=== PATIENT | female | born 1960 | race Caucasian/White ===

== ENCOUNTER → 2017-02-04 | Outpatient (CLI) | payer OTHER ==
[~2017-02-04] MED LIST: CITA10TA4 PO; CYCL5TAB PO; PRLSR20 PO; SIMV20TA2 PO; TRAM-10 PO; TRIATAB3 PO
--- NOTE | 2017-02-05 12:30 | MAMMOGRAPHY REPORT ---
BILATERAL DIGITAL SCREENING MAMMOGRAM TOMOSYNTHESIS WITH CAD: 02/04/2017 CLINICAL HISTORY: Routine screening. Patient has no complaints. TECHNIQUE: Breast tomosynthesis in addition to standard 2D mammography was performed. Current study was also evaluated with a Computer Aided Detection (CAD) system. COMPARISON: Comparison is made to exams dated: 01/31/2016 mammogram, 01/08/2015 mammogram, 01/04/2014 ma mmogram, 12/29/2012 mammogram, 12/23/2011 mammogram, and 12/05/2010 mammogram - [facility] nter. BREAST COMPOSITION: The tissue of both breasts is almost entirely fatty. FINDINGS: There is an irregular 10 mm asymmetry seen within the left far superior breast on the MLO v iew only, thought to project laterally based on the tomosynthesis localizer bar, for which spot compr ession tomosynthesis views and possible breast ultrasound are recommended for further evaluation. Th is may be within the skin and may represent a sebaceous cyst, given the history of other sebaceous cy sts seen within the left axillary region on the prior 2008 ultrasound exam. The remainder of both breasts are stable compared to prior exams, without suspicious masses, calcific ations, or areas of architectural distortion noted. IMPRESSION: ACR BI-RADS CATEGORY 0: INCOMPLETE EVALUATION: NEED ADDITIONAL IMAGING EVALUATION Left superior breast asymmetry, for which additional imaging evaluation is recommended. The patient will be called to schedule an appointment. Approximately 10% of breast cancers are not detected with mammography. A negative mammographic report should not delay biopsy if a clinically suggestive mass is present. Vianca Vizcaino M.D. /:02/04/2017 16:28:50 Rv Repairer: Tatum ARITA(R)(M)(BD), [facility] letter sent: Addl Imaging 0 BI-RADS Code: ACR BI-RADS Category 0: Incomplete Evaluation: Need Additional Imaging Evaluation
== END | disposition home or self-care (01) ==
LOC: C.MAMM 07:36
PROVIDERS: ATTEND Family Medicine
DX: Z12.31 Encounter for screening mammogram for malignant neoplasm of breast (principal); R92.8 Other abnormal and inconclusive findings on diagnostic imaging of breast

== ENCOUNTER → 2017-02-18 | Outpatient (CLI) | payer OTHER ==
--- NOTE | 2017-02-18 15:23 | MAMMOGRAPHY REPORT ---
UNILATERAL LEFT DIGITAL DIAGNOSTIC MAMMOGRAM TOMOSYNTHESIS AND TARGETED LEFT ULTRASOUND: 02/18/2017 CLINICAL HISTORY: Callback from screening mammogram for left breast asymmetry. On questioning, the p atjax has a history of multiple sebaceous cysts involving bilateral axillary regions. TECHNIQUE: Breast tomosynthesis in addition to standard 2D mammography was performed. Spot compress ion left MLO 2-D and tomosynthesis images were obtained. COMPARISON: Comparison is made to exams dated: 02/04/2017 mammogram, 01/31/2016 mammogram, 01/08/2015 ma mmogram, 01/04/2014 mammogram, 12/29/2012 mammogram, and 12/23/2011 mammogram - [facility] nter. BREAST COMPOSITION: The tissue of the left breast is almost entirely fatty. FINDINGS: The previously seen asymmetry within the left far superior breast axillary region persists on the additional spot compression MLO view but is superficial and is likely associated with the ski n. Targeted ultrasound was performed of the left axillary region at the site of the mammographic asymmet ry. There are numerous round/oval anechoic and hypoechoic intradermal masses seen within the left ax illa, consistent with sebaceous cysts. A predominantly subdermal hypoechoic irregular 10 x 6 x 5 mm mass is also seen within the left axilla, which demonstrates surrounding increased vascularity. This corresponds with the mammographic asymmetry and is probably benign and likely represents a sebaceous cyst. The surrounding increased vascularity suggests that it may be inflamed, although clinical exa m shows no erythema of the skin and the patient reports no pain or other symptoms. IMPRESSION: ACR-BI-RADS CATEGORY 3: PROBABLY BENIGN, TARGETED ULTRASOUND ACR-BI-RADS CATEGORY 3: PRO BABLY BENIGN Subdermal irregular hypoechoic 10 mm mass in the left axilla on ultrasound, which corresponds with th e mammographic asymmetry. This is probably benign and likely represents a sebaceous cyst, which may be inflamed given the surrounding increased vascularity. Multiple other benign sebaceous cysts were seen within the left axillary region on ultrasound. Recommend follow-up ultrasound and possible diag nostic tomosynthesis mammograms of the left axilla in 6 months to reevaluate. The patient has been verbally notified of the results. Approximately 10% of breast cancers are not detected with mammography. A negative mammographic report should not delay biopsy if a clinically suggestive mass is present. Vianca Vizcaino M.D. ah/:02/18/2017 10:00:31 Metal Model Builder: Molly ARITA(Raúl)(M), [facility] letter sent: Follow Up Recommended 3 BI-RADS Code: ACR-BI-RADS Category 3: Probably Benign Ultrasound BI-RADS: ACR-BI-RADS Category 3: Pr obably Benign
== END | disposition home or self-care (01) ==
LOC: C.MAMM 08:29
PROVIDERS: ATTEND Family Medicine
DX: R92.2 Inconclusive mammogram (principal)

== ENCOUNTER → 2017-04-23 | Outpatient (CLI) | payer OTHER | END | disposition home or self-care (01) | LOC: C.LABSPEC 13:18 | PROVIDERS: ATTEND Physician Assistant | DX: N89.8 Other specified noninflammatory disorders of vagina (principal) ==

== ENCOUNTER → 2017-08-23 | Outpatient (CLI) | payer OTHER ==
--- NOTE | 2017-08-23 14:48 | MAMMOGRAPHY REPORT ---
UNILATERAL LEFT DIGITAL DIAGNOSTIC MAMMOGRAM TOMOSYNTHESIS AND TARGETED LEFT ULTRASOUND: 08/23/2017 CLINICAL HISTORY: Follow-up of asymmetries in the far superior left breast/axillary region on the MLO view thought to correspond with intradermal mass is seen on targeted ultrasound. TECHNIQUE: Left MLO 2-D and tomosynthesis images were obtained. COMPARISON: Comparison is made to exams dated: 02/18/2017 mammogram, 02/18/2017 ultrasound, 02/04/2017 mammogram, 01/31/2016 mammogram, 01/08/2015 mammogram, and 01/04/2014 mammogram - [facility] enter. BREAST COMPOSITION: The tissue of the left breast is almost entirely fatty. FINDINGS: The left MLO views demonstrate persistent nodular asymmetries in the far superior left dion st/axilla on the MLO view. No conspicuous spiculated mass or definite architectural distortion is id entified. There are stable benign-appearing lymph nodes projecting over the pectoralis muscle on the MLO view. No suspicious breast mass, architectural distortion or cluster of suspicious microcalcifi cations is seen in the breast. Repeat targeted ultrasound was performed in the left axilla. Numerous intradermal hypoechoic lesions are identified, parallel in orientation without significant increased vascularity. At least 6 intra dermal lesions are currently identified, most compatible with epidermal inclusion cysts and/or Hidrad initis. These findings are benign. There is no targeted sonographic evidence of malignancy or suspi cious lymphadenopathy. IMPRESSION: ACR BI-RADS CATEGORY 2: BENIGN, TARGETED ULTRASOUND ACR BI-RADS CATEGORY 2: BENIGN There is no mammographic or targeted sonographic evidence of malignancy in the left breast. The asym metries in the far superior breast/axillary region on the MLO view corresponding to intradermal lesio ns on ultrasound. Return to annual mammogram screening schedule is recommended, due in January 2018. T he patient has been verbally notified of the results. Approximately 10% of breast cancers are not detected with mammography. A negative mammographic report should not delay biopsy if a clinically suggestive mass is present. Heide Fuchs M.D. ay/:08/23/2017 08:46:20 Corporate Risk Analyst: Nirali CHAN)(Ese), [facility] letter sent: Normal 1/2 BI-RADS Code: ACR BI-RADS Category 2: Benign Ultrasound BI-RADS: ACR BI-RADS Category 2: Benign
== END | disposition home or self-care (01) ==
LOC: C.MAMM 08:00
PROVIDERS: ATTEND Family Medicine
DX: N64.89 Other specified disorders of breast (principal)

== ENCOUNTER 2018-10-12 09:16 | Inpatient (IN) ==
[2018-10-12] MEDS ORDERED: SODIUM CHLORIDE 0.9% 1000ML 1,000 ML IV SCH (09:45)
[2018-10-12] MEDS ORDERED: ONDANSETRON INJ 2 MG/ML 2 ML VIAL IV STA (09:45)
[2018-10-12 10:44] LABS: Hematocrit (blood only) 16.1 % (37-47); Hemoglobin 5.5 g/dL (12.0-16.0); Mean Corpuscular Volume 82.6 fL (80-100); Red Blood Count 1.95 M/uL (4.2-5.4); White Blood Count 2.08 K/uL (4.8-10.8)
[2018-10-12 10:46] LABS: Mean Corpuscular Hgb Conc 34.2 g/dL (32-36)
[2018-10-12 10:47] LABS: Mean Platelet Volume 9.1 fL (7.4-10.4); Platelet Count 7 K/uL (130-400)
[2018-10-12 10:48] LABS: Eosinophils # (auto) 0.01 K/uL (0-0.5); Eosinophils % (auto) 0.5 %; Immature Granulocytes # (auto) 0.01 K/uL (0.00-0.02); Immature Granulocytes % (auto) 0.5 %; Lymphocytes # (auto) 0.37 K/uL (1.2-3.4); Lymphocytes % (auto) 17.8 %; Monocytes # (auto) 0.21 K/uL (0.11-0.59); Monocytes % (auto) 10.1 %; Neutrophils # (auto) 1.48 K/uL (1.4-6.5); Neutrophils % (auto) 71.1 %; RBC Morphology Unremarkable
[2018-10-12] MEDS ORDERED: SODIUM CHLORIDE 0.9% 250 ML IV PRN ×4 (10:48→14:53)
[2018-10-12 10:51] LABS: Albumin Level 3.1 gm/dl (3.4-5.0); Aspartate Aminotransferase 18 U/L (15-37); BUN Creatinine Ratio 21.6 (10-20); Blood Urea Nitrogen 15 mg/dl (7-18); Calcium 8.5 mg/dl (8.5-10.1); Carbon Dioxide 28 mmol/L (21-32); Chloride 100 mmol/L (98-107); Est GFR (African American) 111.2; Glucose 88 mg/dl (70-99); Magnesium 1.5 mg/dl (1.8-2.4); Potassium 2.4 mmol/L (3.5-5.1); Sodium 137 mmol/L (136-145)
[2018-10-12 10:52] LABS: Alanine Aminotransferase 13 U/L (12-78); Albumin Globulin Ratio 0.9 (0.9-2); Alkaline Phosphatase 115 U/L (45-117); Globulin 3.5 gm/dl (2.5-4.0); Phosphorus 2.5 mg/dl (2.5-4.9); Total Protein 6.6 gm/dl (6.4-8.2)
--- NOTE | 2018-10-12 11:05 | XRay Report ---
CHEST AND ABDOMEN 2 VIEWS HISTORY: h/o esophagectomy and pullthrough COMPARISON: Chest and abdominal series 05/12/2018. FINDINGS: No pneumothorax. Trace right pleural effusion. The heart is normal in size. Right jugular P ort-A-Cath terminates at the SVC. No focal lung consolidations. Right paramediastinal suture material is noted. No pneumoperitoneum. No pneumatosis. No renal or ureteral calculi. A few pelvic phlebolith s are noted. Moderate osteoarthritis within the left hip. No dilated loops of bowel to suggest an obs truction. IMPRESSION: 1. Trace right pleural effusion and postoperative changes within the right hemithorax. 2. No evidence for bowel obstruction. Electronically signed by: Tyrone Lang M.D. 10/12/2018 11:04 AM
[2018-10-12] MEDS ORDERED: MAGNESIUM SULFATE / D5W 1 GM/100 ML BAG IV ONE ×2 (11:38→15:00)
[2018-10-12] MEDS: POTASSIUM CHLORIDE / WTR 10 MEQ/100 ML PLCT IV SCH ×4 (11:42→18:48)
[2018-10-12] MEDS ORDERED: PANTOPRAZOLE BOLUS/DRIP 1 EA IV STA (12:09)
[2018-10-12] MEDS ORDERED: PANTOprazole 80 MG in DEXTROSE 5% 100 ML IV ONE (12:09)
--- NOTE | 2018-10-12 12:13 | CT Scan Report ---
CT head/brain wo con CLINICAL HISTORY: 58 years-old Female presenting with thrombocytopenia. TECHNIQUE: Multidetector CT imaging of the head was performed without the use of intravenous contrast . IV contrast: None. One or more dose lowering techniques were used consistent with the principles of ALARA (as low as reasonably achievable), including automatic exposure control, mA or kV adjustment t o individual patient size, and/or use of iterative reconstruction. COMPARISON: None. CT DOSE (mGy.cm): The estimated cumulative dose is 537.48 mGy.cm. FINDINGS: Plywood And Veneer Repairer topogram: Unremarkable. Ventricles and sulci normal in size. No hemorrhage. Brain parenchyma normal in appearance with preser bryant larios-white differentiation. No acute territorial infarct. No mass effect or midline shift. No ext ra-axial fluid collection. Paranasal sinuses and mastoid air cells clear. Calvarium intact. IMPRESSION: 1. No acute intracranial abnormality. Electronically signed by: Masood Dai M.D. 10/12/2018 12:12 PM
[2018-10-12] MEDS: PANTOprazole 40 MG in DEXTROSE 5% 100 ML IV SCH ×4 (12:47→22:28)
--- NOTE | 2018-10-12 13:06 | Emergency Department Note ---
Entered by Ale Thorne acting as a scribe for Jae Chand MD History of Present Illness General Chief complaint: Vomiting Stated complaint: VOMITING Time Seen by Provider: 10/12/18 09:30 Source: patient History of Present Illness Provider complaint: vomiting Onset (ago): week(s) (over the last couple of weeks) Location: abdomen Pain Consistency: + intermittent Maximum Pain Intensity: 2 Quality: + other (vomiting) Associated symptoms: no chest pain, no fever/chills and no shortness of breath The patient is a 58 year old white female w/ PMHx of esophageal and lung cancer and esophageal surgery who presents to the ED w/ CC of intermittent vomiting over the last couple of weeks. She states that she has been able to get fluids down and states that she was able to eat oatmeal yesterday. The patient states that she had chemotherapy on September 28. The patient denies having fevers, chills, chest pain, and shortness of breath. She states that she has been unable to take her medications secondary to vomiting. The patient denies alcohol or tobacco use. Home Medications Home Medications Medication Instructions Recorded Confirmed Type polyethylene glycol 3350 17 1 gm PO DAILY PRN gm 06/28/18 10/12/18 History gram/dose oral powder Allergies Allergy/AdvReac Type Severity Reaction Status Date / Time Penicillins Allergy Intermediate Rash Verified 10/12/18 09:43 Sulfa (Sulfonamide AdvReac Severe Rash Verified 10/12/18 09:43 Antibiotics) Past Med/Surg History Medical History Esophageal cancer Adenocarcinoma of esophagus (02/22/18) "History of reflux esophagitis Development of weight loss and dysphagia Status post upper GI endoscopy and biopsy February 22, 2018 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 Radiation therapy completed May 12, 2018. She received 5040 cGy. Surgical History History of esophageal surgery (Acute) Family History Other No significant family history Social History Preferred Language: Palestinian Communication Ability: Effective Computer Numerical Control Programmer Required: No Beliefs That Will Affect Care: None marital status: Current Living Situation: Spouse Other Information That Helps Us Care for You: No Feels Safe at Home: Yes Safety Concerns: Feels Safe At This Time Smoking Status: Former smoker Hx Alcohol Use: No Hx Substance Use: No Review of Systems See HPI for pertinent positives & negatives. and A total of 10 systems reviewed and were otherwise negative Physical Exam Vital Signs Vital Signs - 24 hr 10/12/18 09:18 10/12/18 10:00 10/12/18 10:44 Temperature 36.6 C Temperature Source Oral Sepsis Recent Fever Within 48 Hours No Sepsis New/Unexplained Change in Mental Status No Sepsis Action Taken by Nursing No Action Required Pulse Rate 117 H Pulse Rate [Finger] 73 Respiratory Rate 20 18 Respiratory Effort / Characteristics Respiratory Depth Respiratory Pattern Blood Pressure 96/66 L Blood Pressure [Right Arm] 118/67 Blood Pressure Mean 76 Blood Pressure Mean [Right Arm] 84 Pulse Oximetry 100 99 99 Oxygen Delivery Method Room Air 10/12/18 11:28 10/12/18 11:48 Temperature Temperature Source Sepsis Recent Fever Within 48 Hours Sepsis New/Unexplained Change in Mental Status Sepsis Action Taken by Nursing Pulse Rate Pulse Rate [Finger] 79 Respiratory Rate 18 Respiratory Effort / Characteristics Spontaneous Non-Labored Respiratory Depth Normal Normal Respiratory Pattern Regular Blood Pressure Blood Pressure [Right Arm] 102/66 Blood Pressure Mean Blood Pressure Mean [Right Arm] 78 Pulse Oximetry 98 Oxygen Delivery Method Room Air Room Air GENERAL: Well appearing, well nourished, NAD, non-toxic. Face mask in place. EYE EXAM: Normal conjunctiva. PERRL, no anisocoria and EOM's grossly intact w/o pain OROPHARYNX: Dry mucus membranes. NECK: Supple, no nuchal rigidity, no adenopathy, non-tender. No signs of meningismus. LUNGS: Clear to auscultation bilaterally. Normal chest wall mechanics. HEART: Normal sinus rhythm, no MRG. ABDOMEN: Abdomen soft, no masses, no rebound or guarding. Mild upper abdominal discomfort. External portion of the DJ is absent but you can see the beginning of the rest of the DJ virtually at the beginning of the incision site. BACK: No CVA TTP. SKIN: No rashes and no bruising. UPPER EXTREMITIES: Upper extremities are grossly normal. LOWER EXTREMITIES: No pitting edema. No calf pain. NEURO EXAM: AOx3, GCS 15, no gross deficit, follows commands. Moves all 4 extremities on command w/o issue RECTAL: Several non-thrombosed non-bleeding hemorrhoids. No bright red blood. No black tarry stool. Hemoccult negative. Course 0936: Past medical records reviewed. The patient was evaluated in room C5, and a complete history and physical examination were performed. 1107: I consented the patient for blood. 1139: I discussed the patient's case with Chary Angela who will evaluate the patient for further management. 1200: I discussed the patient's case with Dr. Rodriguez who stated that there was concern that the patient was having some bloody vomit. They spoke with their oncologist who recommended platelets. 1245: I performed a rectal exam on the patient. Consultations Consultation #1: Chary Angela Time: 11:39 Consultation #2: Dr. Rodriguez Time: 12:00 Administered Medications Sodium Chloride (Nss 250ml) 250 mls @ 15 mls/hr IV .[id number] PRN PRN Reason: For Transfusion Stop: 11/11/18 10:47 Last Admin: 10/12/18 11:21 Dose: 15 mls/hr Documented by: [id number] Potassium Chloride (K Ricco / Wtr) 10 meq in 100 mls @ 100 mls/hr IV Q1H [facility] Stop: 10/12/18 13:29 Last Admin: 10/12/18 12:45 Dose: 100 mls/hr Documented by: [id number] Infusion: 10/12/18 12:42 Dose: 100 mls/hr Documented by: [id number] Admin: 10/12/18 11:42 Dose: 100 mls/hr Documented by: [id number] Pantoprazole Sodium 40 mg/ (Dextrose) 100 mls @ 20 mls/hr IV Q5H PHANI Stop: 11/11/18 12:14 Last Admin: 10/12/18 12:47 Dose: 20 mls/hr Documented by: [id number] Discontinued Medications Sodium Chloride (Nss 1000ml) 1,000 mls @ 999 mls/hr IV .Q1H1M PHANI Stop: 10/12/18 10:45 Last Infusion: 10/12/18 11:20 Dose: 0 mls/hr Documented by: [id number] Admin: 10/12/18 10:16 Dose: 999 mls/hr Documented by: [id number] Magnesium Sulfate/Dextrose (Magnesium Sulfate / D5w) 1 gm in 100 mls @ 100 mls/hr IV ONE ONE Stop: 10/12/18 12:37 Last Infusion: 10/12/18 12:45 Dose: 0 mls/hr Documented by: [id number] Admin: 10/12/18 11:45 Dose: 100 mls/hr Documented by: [id number] Pantoprazole Sodium (Protonix Bolus/Drip) 0 mls @ 1 mls/hr IV ONE STA Stop: 10/12/18 12:10 Last Admin: 10/12/18 12:56 Dose: Not Given Documented by: [id number] Pantoprazole Sodium 80 mg/ (Dextrose) 120 mls @ 400 mls/hr IV NOW ONE Stop: 10/12/18 12:26 Last Admin: 10/12/18 12:47 Dose: 400 mls/hr Documented by: [id number] Ondansetron HCl (Zofran) 8 mg IV NOW STA Stop: 10/12/18 09:46 Last Admin: 10/12/18 10:16 Dose: 8 mg Documented by: [id number] Medical Decision Making Medical Records Attestation: I reviewed the patient's medical records. Home Medications Current Medication List: was personally reviewed by me Laboratory Data Attestation: I reviewed the patient's lab results. Result diagrams: 10/12/18 10:05 10/12/18 10:05 Lab Results 10/12/18 10/12/18 10/12/18 Range/Units 10:05 10:05 11:29 WBC 2.08 L (4.8-10.8) K/uL RBC 1.95 L (4.2-5.4) M/uL Hgb 5.5 L* (12.0-16.0) g/dL Hct 16.1 L* (37-47) % MCV 82.6 (80-100) fL MCH 28.2 (25-34) pg MCHC 34.2 (32-36) g/dL RDW Std Deviation 44.0 (36.4-46.3) fL RDW Coeff of [place] 15.0 H (11.5-14.5) % Plt Count 7 L* (130-400) K/uL MPV 9.1 (7.4-10.4) fL Immature Gran % (Auto) 0.5 % Neut % (Auto) 71.1 % Lymph % (Auto) 17.8 % Shoshone % (Auto) 10.1 % Eos % (Auto) 0.5 % Baso % (Auto) 0.0 % Immature Gran # (Auto) 0.01 (0.00-0.02) K/uL Neut # (Auto) 1.48 (1.4-6.5) K/uL Lymph # (Auto) 0.37 L (1.2-3.4) K/uL Shoshone # (Auto) 0.21 (0.11-0.59) K/uL Eos # (Auto) 0.01 (0-0.5) K/uL Baso # (Auto) 0.00 (0-0.2) K/uL RBC Morphology Unremarkable Sodium 137 (136-145) mmol/L Potassium 2.4 L* (3.5-5.1) mmol/L Chloride 100 (98-107) mmol/L Carbon Dioxide 28 (21-32) mmol/L Anion Gap 8.0 (3-11) BUN 15 (7-18) mg/dl Creatinine 0.69 (0.6-1.2) mg/dl Est Cr Clr Drug Dosing Not Reportable Est GFR ( Amer) 111.2 Est GFR (Non-Af Amer) 96.0 BUN/Creatinine Ratio 21.6 H (10-20) Glucose 88 (70-99) mg/dl Calcium 8.5 (8.5-10.1) mg/dl Phosphorus 2.5 (2.5-4.9) mg/dl Magnesium 1.5 L (1.8-2.4) mg/dl Total Bilirubin 1.0 (0.2-1) mg/dl AST 18 (15-37) U/L ALT 13 (12-78) U/L Alkaline Phosphatase 115 (45-117) U/L Total Protein 6.6 (6.4-8.2) gm/dl Albumin 3.1 L (3.4-5.0) gm/dl Globulin 3.5 (2.5-4.0) gm/dl Albumin/Globulin Ratio 0.9 (0.9-2) Lipase 112 (73-393) U/L Blood Type O Negative Antibody Screen NEGATIVE Crossmatch See Detail Imaging Data Radiologist's Impression: Radiology results as stated below per my review and the radiologist's interpretation: CHEST AND ABDOMEN 2 VIEWS HISTORY: h/o esophagectomy and pullthrough COMPARISON: Chest and abdominal series 05/12/2018. FINDINGS: No pneumothorax. Trace right pleural effusion. The heart is normal in size. Right jugular Port-A-Cath terminates at the SVC. No focal lung consolidations. Right paramediastinal suture material is noted. No p neumoperitoneum. No pneumatosis. No renal or ureteral calculi. A few pelvic phleboliths are noted. Moderate osteoarthritis within the left hip. No dilated loops of bowel to suggest an obstruction. IMPRESSION: 1. Trace right pleural effusion and postoperative changes within the right hemithorax. 2. No evidence for bowel obstruction. Electronically signed by: Tyrone Lang M.D. 10/12/2018 11:[address] head/brain wo con CLINICAL HISTORY: 58 years-old Female presenting with thrombocytopenia. TECHNIQUE: Multidetector CT imaging of the head was performed without the use of intravenous contrast. IV contrast: None. One or more dose lowering techniques were used consistent with the principles of ALARA (as low as reasonably achievable), including automatic exposure control, mA or kV adjustment to individual patient size, and/or use of iterative reconstruction. COMPARISON: None. CT DOSE (mGy.cm): The estimated cumulative dose is 537.48 mGy.cm. FINDINGS: Gang Saw Operator topogram: Unremarkable. Ventricles and sulci normal in size. No hemorrhage. Brain parenchyma normal in appearance with preserved larios-white differentiation. No acute territorial infarct. No mass effect or midline shift. No extra-axial fluid collection. Paranasal sinuses and mastoid air cells clear. Calvarium intact. IMPRESSION: 1. No acute intracranial abnormality. Electronically signed by: Masood Dai M.D. 10/12/2018 12:12 PM ECG Data Attestation: I personally reviewed and interpreted this ECG as follows: Indication: vomiting Rate (beats per minute): 76 Rhythm: normal sinus Findings: + other (normal intervals, normal axis, some slight depression in V3 and V4) Comparison ECG Date: from (07/21/18) Change: no significant change (depressions appear old) Blood Pressure Blood Pressure Findings: Normal blood pressure MDM Narrative The patient is a 58 year old white female w/ PMHx of esophageal and lung cancer and esophageal surgery who presents to the ED w/ CC of intermittent vomiting over the last couple of weeks. Differential diagnosis: Etiologies such as gastroenteritis, food borne illness, infections, appendici tis, diverticulitis, inflammatory bowel disease, obstruction, GI bleed, biliary pathology, cardiac process, intracranial process, as well as others were entertained. Patient was seen and evaluated the bedside. The patient is a prior history of lung CA as well as esophageal CA status post esophagectomy and pull through. The patient has complained of persistent nausea with associated vomiting over the last 3 weeks. The patient did receive chemotherapy September 28. Patient sees Dr. Ambrocio with [facility]. Patient did a blood work completed along with EKG troponin chest x-ray and abdomen x-ray. Patient was given medications and fluids for symptom improvement. Patient's plain films unremarkable. EKG shows some slight depression which appears fairly unchanged compared to prior. The patient has a low hemoglobin and associated thrombus cytopenia. CT the brain was ordered. I did speak with the on-call hospitalist who agreed to further evaluate treat the patient. Rectal exam is negative for blood. Hemoccult negative. The patient was consented for 2 units of blood as well as [address] the brain is negative. Impression & Plan Anemia, Nausea & vomiting, Thrombocytopenia, Hypokalemia, Hypomagnesemia Critical Care Time I have personally spent greater than 80 minutes of critical care time in the direct management of this patient. This includes bedside care, interpretation of diagnostic studies, and testing, discussion with consultants, patient, and family members, and other required patient management activities. This 80 minutes is in excess of all separately billable procedures. Critical Care Time: Yes Total Critical Care Time: 80 Discharge Plan Visit Data Chief Complaint: Vomiting Stated Complaint: VOMITING ED Provider: Jae Chand Discharge Problem: Anemia, Nausea & vomiting, Thrombocytopenia, Hypokalemia, Hypomagnesemia Patient Disposition: Being Evaluated by Hospitalist Forms Stand Alone Forms: Kite Prescriptions Prescriptions: No Action polyethylene glycol 3350 [Miralax] 17 gram/dose powder 1 gm PO DAILY PRN (Reason: constipation) RF: 0 Referrals Referrals: Josiah Sampson [Primary Care Provider] - Discharge Problem: Anemia Qualifiers: Anemia type: unspecified type Qualified Code(s): D64.9 - Anemia, unspecified Nausea & vomiting Qualifiers: Vomiting type: unspecified Vomiting Intractability: non-intractable Qualified Code(s): R11.2 - Nausea with vomiting, unspecified The scribe's documentation has been prepared under my direction and personally reviewed by me in its entirety. I confirm that the note above accurately reflects all work, treatment, procedures, and medical decision making performed by me.
--- NOTE | 2018-10-12 13:24 | History & Physical Report ---
Date of Service October 12, 2018 Assessment & Plan (1) Anemia: Pancytopenia: Likely multifactorial: Due to Chemotherapy, Anemia of chronic disease, To R/O GI bleed Chest/Abd X ray:Trace right pleural effusion and postoperative changes within the right hemithorax. No evidence for bowel obstruction. Hb:5.5 Platelets:7 Transfuse 2 units PRBCs and 1 unit platelets Monitor CBC Coffee ground/Black emesis: R/O GI bleed Check FOBT/GOBT Transfuse PRBCs as needed Started on protonix ggt NPO for now GI consulted IV fluids Hypokalemia Hypomagnesemia: Likely due to GI loses Monitor and replace electolytes as needed Diarrhea: Stool studies to R/O C.diff IV fluids Prolonged QTC: Avoid QTC prolonging meds as able Repeat EKG in Am lower esophageal adenocarcinoma S/P Surery, chemo and radiation therapy Completed chemotherapy Follows with Dr.Nilesh Ambrocio Oncology consulted H/O HTN H/O HLP H/O Gout Currently not on any medications monitor DVT Px: SCDs Code Status Full Code Disposition: Expect to discharge home when stable History of Present Illness Chief Complaint: Nausea and vomiting Primary Care Provider: Josiah Sampson Patient is a 58-year-old female with past medical history of lower esophageal adenocarcinoma S/P Surgery, chemo and radiation therapy and other problems presents with history of nausea and vomiting since 2 weeks duration. Patient's last chemotherapy was 3 weeks ago. She follows with Dr. Lazaro Ambrocio as outpatient. She states having intermittent nausea vomiting since last chemother apy. She noticed having black colored emesis. Also reports some intermittent diarrhea which has been ongoing since her surgery. She states having mild generalized abdominal pain intermittently, crampy in nature, non-radiating, 2/10 intensity, with no aggravating and relieving factors. Reports dizziness since last 2 days with positional change. She noticed having epistaxis yesterday which was self limiting. She denies any history of bright red blood in stool, melena. Denies any history of chest pain, SOB, cough, fever, chills, fall, head trauma, headache, dysuria, hematuria, recent change in medications. Allergies Allergy/AdvReac Type Severity Reaction Status Date / Time Penicillins Allergy Intermediate Rash Verified 10/12/18 09:43 Sulfa (Sulfonamide AdvReac Severe Rash Verified 10/12/18 09:43 Antibiotics) Home Medications Home Medications Medication Instructions Recorded Confirmed Type polyethylene glycol 3350 17 1 gm PO DAILY PRN gm 06/28/18 10/12/18 History gram/dose oral powder Past Med/Surg History Medical History Esophageal cancer Adenocarcinoma of esophagus (02/22/18) "History of reflux esophagitis Development of weight loss and dysphagia Status post upper GI endoscopy and biopsy February 22, 2018 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 Radiation therapy completed May 12, 2018. She received 5040 cGy. Surgical History History of esophageal surgery (Acute) H/O left knee surgery Family History Father Esophageal cancer Other No significant family history Social History Preferred Language: Finnish Communication Ability: Effective Supervisor Finishing Department Required: No Beliefs That Will Affect Care: None marital status: Current Living Situation: Spouse Other Information That Helps Us Care for You: No Feels Safe at Home: Yes Safety Concerns: Feels Safe At This Time Smoking Status: Former smoker Hx Alcohol Use: No Hx Substance Use: No Review of Systems All systems reviewed & are unremarkable except as noted in HPI & below Physical Exam Vital Signs (Past 24 Hours): Last Vital Signs Temp 36.6 C 10/12/18 09:18 Pulse 79 10/12/18 11:48 Resp 18 10/12/18 11:48 BP 102/66 10/12/18 11:48 Pulse Ox 98 10/12/18 11:48 Physical Exam: Physical Exam: Vitals signs as noted above General Appearance:Moderately built and nourished, no apparent distress Head: normocephalic, Atraumatic Eyes: normal inspection, EOMI Neck: supple, Trachea midline Chest:Chemo port on left side of chest Respiratory/Chest: Normal breath sounds, CTA Cardiovascular: S1, S2, No murmur Abdomen/GI:Soft, Non tender, Bowel sounds present, Surgical scar on right side of abd/flank Extremities/Musculoskelatal:normal inspection, no edema Neurologic/Psych:AAOX3, grossly no focal neurological deficits Skin: normal color, warm Results & Data Laboratory Results Short CBC 10/12/18 Range/Units 10:05 WBC 2.08 L (4.8-10.8) K/uL Hgb 5.5 L* (12.0-16.0) g/dL Hct 16.1 L* (37-47) % Plt Count 7 L* (130-400) K/uL BMP 10/12/18 10:05 Sodium 137 Potassium 2.4 L* Chloride 100 Carbon Dioxide 28 BUN 15 Creatinine 0.69 Glucose 88 Calcium 8.5 Liver Function 10/12/18 Range/Units 10:05 Total Bilirubin 1.0 (0.2-1) mg/dl AST 18 (15-37) U/L ALT 13 (12-78) U/L Alkaline Phosphatase 115 (45-117) U/L Albumin 3.1 L (3.4-5.0) gm/dl Diagnostic Findings CT head: No acute intracranial abnormality. Chest/Abdomen X ray: 1. Trace right pleural effusion and postoperative changes within the right hemithorax. 2. No evidence for bowel obstruction. ECG Additional Comments: EKG: NSR, Nonspecific ST-T wave changes, QTC:461 (1) Anemia Anemia type: unspecified type Qualified Code(s): D64.9 - Anemia, unspecified
[2018-10-12] MEDS ORDERED: ACETAMINOPHEN 325 MG TAB PO PRN (14:53)
[2018-10-12] MEDS ORDERED: MoRPHine SULFATE 4 MG/ML 1 ML CARP\\VIAL IV PRN (14:53)
--- NOTE | 2018-10-12 16:55 | Gastrointestinal Consultation ---
Date of Consultation October 12, 2018 Assessment & Plan (1) Anemia: Most likely, her nausea/vomiting is a chemotherapeutic effect. Her anemia is also, likely an effect of the chemotherapy. Her one episode of a small amt of black emesis may represent gastritis and less likely ulcer disease (unlikely as nausea/vomiting began after last round of chemo) or radiation esophagitis (unlikely as most recent radiation Jul 2018). Endoscopy is contraindicated when platelet count is <50,000. Recommend antiemetics, blood and fluids recucsitation. Suggest a regular consistency diet. If nausea/vomiting persist after thrombocytopenia is resolved then would be happy to provide EGD at that time. Would also go forward with EGD (after further platelet infusions) if there is another drop in her Hb/Hct. Present on Admission?: Yes (2) Nausea & vomiting: Present on Admission?: Yes (3) Hematemesis: Present on Admission?: Yes Supervising Physician Co-Signing Physician Notes I have performed a history and physical examination of this patient and reviewed the electronic medical record. Specifically, on physical examination there is mild epigastric tenderness. I have discussed the case with DENIS Ragsdale. The above note reflects my findings, conclusions, and recommendations. Alexandre Romero MD History of Present Illness Reason for Consultation: coffee ground emesis Requesting Physician: Dr. Trejo Attending Physician: Eleuterio Hdz MD History of Present Illness Ms Jackelyn Bergeron is a 58 yr old female with a hx of gastroesophageal malignancy S/P surgery chemoradiation, most recent chemotherapy 3 weeks ago. Most recent radiation last May. Since her that last round on of chemo, she has had nausea, vomiting, unable to hold down very much solid food but typically able to tolerate liquids. She vomits more times than she can count, typically bile and "foam , " but this morning vomited a small amt of "black slime." No bright red emesis. No melena or hematochezia. BMs are brown, loose, most recently passing a BM last night. She presented to the ED yesterday for coffee grounds emesis. On arrival, she was pancytopenic: WBC 2. Hb on arrival was 5.5, down from 10.4 in July; today, Hb 7.3 after 2 units of RBC. Platelets were 7 yesterday, and today are 12. BUN 15, Cr 0.69. CXR with trace pleural effusion and no bowel obstruction. Allergies Allergy/AdvReac Type Severity Reaction Status Date / Time Penicillins Allergy Intermediate Rash Verified 10/12/18 09:43 Sulfa (Sulfonamide AdvReac Severe Rash Verified 10/12/18 09:43 Antibiotics) Home Medications Home Medications Medication Instructions Recorded Confirmed Type polyethylene glycol 3350 17 1 gm PO DAILY PRN gm 06/28/18 10/12/18 History gram/dose oral powder Patient History Medical History Esophageal cancer Adenocarcinoma of esophagus (02/22/18) "History of reflux esophagitis Development of weight loss and dysphagia Status post upper GI endoscopy and biopsy February 22, 2018 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 Radiation therapy completed May 12, 2018. She received 5040 cGy. Surgical History History of esophageal surgery (Acute) H/O left knee surgery Family History Father Esophageal cancer Other No significant family history Social History Preferred Language: Yakut Communication Ability: Effective Beliefs That Will Affect Care: None marital status: Current Living Situation: Spouse Feels Safe at Home: Yes Smoking Status: Former smoker Tobacco Type: cigarettes Second Hand Exposure: No Hx Alcohol Use: No Hx Substance Use: No Physical Exam Vital Signs (Past 24 Hours): Last Vital Signs Temp 36.7 C 10/12/18 16:35 Pulse 82 10/12/18 16:35 Resp 18 10/12/18 16:35 BP 95/63 L 10/12/18 16:35 Pulse Ox 100 10/12/18 16:35 (1) Anemia Anemia type: unspecified type Qualified Code(s): D64.9 - Anemia, unspecified (2) Nausea & vomiting Vomiting Intractability: non-intractable Vomiting type: unspecified Qualified Code(s): R11.2 - Nausea with vomiting, unspecified
[2018-10-12 16:58] LABS: Platelet Count 20 K/uL (130-400)
[2018-10-12 17:06] LABS: Hematocrit (blood only) 14.7 % (37-47); Hemoglobin 4.8 g/dL (12.0-16.0); Mean Corpuscular Hgb Conc 32.7 g/dL (32-36); Mean Corpuscular Volume 82.6 fL (80-100); Mean Platelet Volume 9.9 fL (7.4-10.4); RDW Coefficient of Variation 15.1 % (11.5-14.5); RDW Standard Deviation 43.3 fL (36.4-46.3); Red Blood Count 1.78 M/uL (4.2-5.4); White Blood Count 3.13 K/uL (4.8-10.8)
[2018-10-12 17:29] LABS: BUN Creatinine Ratio 17.8 (10-20); Calcium 8.2 mg/dl (8.5-10.1); Creatinine Clr Calc Pharmacy 94.4 ml/min; Est GFR (Non-African American) 92.3; Magnesium 1.7 mg/dl (1.8-2.4); Potassium 2.5 mmol/L (3.5-5.1)
[2018-10-12 18:11] LABS: Appearance Urine Clear (Clear); Bacteria Urine Automated Negative (Negative); Bilirubin Urine Negative (Negative); Blood Urine Negative (Negative); Color Urine Yellow; Epithelial Cell Urine Auto >30 /lpf (0-5); Glucose Urine UA Negative (Negative); Ketones Urine 1+ (Negative); Leukocyte Esterase Urine Trace (Negative); Nitrite Urine Negative (Negative); Protein Urine Negative (Negative); RBC Urine Automated 0-4 /hpf (0-4); Specific Gravity Urine 1.014 (1.000-1.030); Urobilinogen Urine Negative (Negative); pH Urine 6.5 (4.5-7.5)
--- NOTE | 2018-10-12 18:37 | Oncology Consultation ---
Date of Consultation October 12, 2018 Assessment & Plan (1) Anemia: 58-year-old female, Oncology diagnosis: - Lower esophageal adenocarcinoma, 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 Also noticed to have multiple bilateral subcentimeter lung nodules. - S/P 3 cycles of neoadjuvant chemotherapy with modified FOLFOX 6 (5- fluorouracil , Leucovorin and oxaliplatin) along with radiation treatment. - S/P �laparascopic/hand assisted/�vats converted to open�modified rossy fatuma esophagectomy. Placement of feeding jejunostomy tube on 07/12/2018 .- Final path �> Residual T3 primary tumor, 6/15 lymph node positive for metastases, N2 disease. - Completed 3 cycles of paclitaxel and Carboplatin every 3 weekly between 08/17/2018-09/28/2018). - She did receive prophylactic Neulasta. When she received last cycle of chemotherapy on 09/28/2018, she had low hemoglobin level and also slightly low platelet count and now she has worsening anemia and thrombocytopenia which is expected with the recent chemotherapy treatment. She received 1 unit of platelet, platelet count improved to around 20,000, she will receive 2 units of PRBC and see how she does. Electrolyte imbalance noted, will correct that. Would like to have GI evaluation, she had endoscopic years earlier in August 2018, had gastric stenosis at the pylorus level noted. Will follow-up. Thanks for the consultation. Lazaro Ambrocio MD Hem/Onc History of Present Illness Attending Physician: Eleuterio Hdz MD 58-year-old the female: Oncology diagnosis: - Lower esophageal adenocarcinoma, 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 Also noticed to have multiple bilateral subcentimeter lung nodules. - S/P 3 cycles of neoadjuvant chemotherapy with modified FOLFOX 6 (5- fluorouracil , Leucovorin and oxaliplatin) along with radiation treatment. - S/P �laparascopic/hand assisted/�vats converted to open�modified rossy fatuma esophagectomy. Placement of feeding jejunostomy tube on 07/12/2018 .- Final path �> Residual T3 primary tumor, 6/15 lymph node positive for metastases, N2 disease. - Completed 3 cycles of paclitaxel and Carboplatin every 3 weekly between 08/17/2018-09/28/2018). - She did receive prophylactic Neulasta. Blood workup done during the last cycle of chemotherapy on 09/28/2018: - WBC 3300, H&H of 8.7/26, Platelet count of 118,000. - BUN/creatinine: 10/0.8, calcium 10, albumin 4.1, normal liver function test. Now admitted at [facility] on 10/12/2018 for symptomatic anemia with hemoglobin level dropped down to around 5 g/dL, platelet count is around 7000. Since this up the surgery, she is having intermittent nausea, vomiting, she had received IV hydration as an outpatient in the clinic, she says that she had seen some coffee-ground vomitus lately, denies any bleeding from either sites, also has some nonspecific epigastric discomfort, no fever, no leg edema, no joint pain, no skin rash. Some dizziness present. Allergies Allergy/AdvReac Type Severity Reaction Status Date / Time Penicillins Allergy Intermediate Rash Verified 10/12/18 09:43 Sulfa (Sulfonamide AdvReac Severe Rash Verified 10/12/18 09:43 Antibiotics) Home Medications Home Medications Medication Instructions Recorded Confirmed Type polyethylene glycol 3350 17 1 gm PO DAILY PRN gm 06/28/18 10/12/18 History gram/dose oral powder Patient History Medical History Esophageal cancer Adenocarcinoma of esophagus (02/22/18) "History of reflux esophagitis Development of weight loss and dysphagia Status post upper GI endoscopy and biopsy February 22, 2018 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 Radiation therapy completed May 12, 2018. She received 5040 cGy. Surgical History History of esophageal surgery (Acute) H/O left knee surgery Family History Father Esophageal cancer Other No significant family history Social History Preferred Language: Tuvaluan Communication Ability: Effective Fire Suppression Captain Required: No Beliefs That Will Affect Care: None marital status: Current Living Situation: Spouse Other Information That Helps Us Care for You: No Feels Safe at Home: Yes Safety Concerns: Feels Safe At This Time Smoking Status: Former smoker Hx Alcohol Use: No Hx Substance Use: No Review of Systems REVIEW OF SYSTEMS: GENERAL: No significant recent change in weight, feeling weak and tired,, no fever, sweats or chills. SKIN: No skin rash, no bruising. HEAD: No headache, dizziness present EYES: No recent change in the vision, no diplopia, EARS: No earache ,no tinnitus, NOSE: No epistaxis, No nasal discharge or stuffiness, MOUTH: No sores, no dysphagia, no hoarseness of voice, NECK: No lumps, No swelling in thyroid area. No stiffness. PULMONARY: No cough, No shortness of breath, no hemoptysis, no chest pain, No wheezing. CARDIOVASCULAR: No anginal chest pain, no PND, no orthopnea. No palpitation, no leg edema. No syncope. GASTRIINTESTINAL: epigastric discomfort present, nausea present, vomiting present, poor oral intake noted, some constipation, she takes MiraLAX for the simple treatment, possible blood in the vomitus.. No abdominal distention. UROLOGIC: No burning urination. No hematuria. MUSCULOSKELETAL: No joint pain, No joint swelling, no muscle weakness. HEMATOLOGIC: she has mild anemia while on chemotherapy with hemoglobin around 8 g/dL, no bleeding disorder, No bruising, presently she is receiving blood transfusion. NEUROLOGIC: No seizures, no focal weakness, no speech difficulty, No memory disturbances some tingling and numbness of extremities from the previous chemotherapy treatment. PSYCHRIATRIC: No depression. No anxiety. No psychosis. Physical Exam Vital Signs (Past 24 Hours): Last Vital Signs Temp 36.8 C 10/12/18 17:35 Pulse 77 10/12/18 17:35 Resp 18 10/12/18 17:35 BP 104/69 10/12/18 17:35 Pulse Ox 100 10/12/18 17:35 On exam: - Alert and oriented x3, thin built woman, not in any distress. - HEENT: no icterus, pallor, Throat: Normal. - Neck: No palpable cervical lymphadenopathy. - Chest: clear to auscultation. - Abdomen: soft, nontender, no hepatomegaly, no splenomegaly. - No focal neuro deficit. - Extremities: no finger clubbing, no leg edema. Results & Data Laboratory Results - WBC 2000, H&H of 5.5/16, MCV 82, Platelet count of 7000, ANC 1400 (10/12/2018) - WBC 3100, H&H of 4.8/14.7, MCV 82, Platelet count of 20,000 (10/12/2018, she received 1 unit of platelet). - Potassium 2.4, magnesium 1.5 - BUN/creatinine: 15/0.6 - Normal liver positive, albumin 3.1. Diagnostic Findings CT chest with PE protocol done on 07/21/2018: - No evidence of pulmonary embolism. - Post-surgical changes of esophagectomy and gastric polyps noted - Small right pleural effusion and trace left pleural effusion noted. - Minimally enlarged precarinal lymph node measuring 1.1 sentiment noted. - Bilateral lung nodules measuring up to [address] scan of the head without intravenous contrast (10/12/2018) �> Negative. Last upper GI endoscopy (08/24/2018): - Gastric stenosis found at the pylorus, which was dilated. Botulinum toxin injected locally. (1) Anemia Anemia type: unspecified type Qualified Code(s): D64.9 - Anemia, unspecified
[2018-10-13] MEDS: NSS + 20MEQ KCL 20 MEQ/1,000 ML BAG IV SCH ×3 (00:20→16:11)
[2018-10-13 01:47] LABS: BUN Creatinine Ratio 15.5 (10-20); Calcium 8.2 mg/dl (8.5-10.1); Est GFR (African American) 112.9; Est GFR (Non-African American) 97.4; Magnesium 1.9 mg/dl (1.8-2.4); Potassium 2.8 mmol/L (3.5-5.1)
[2018-10-13 01:55] LABS: Hematocrit (blood only) 19.6 % (37-47); Hemoglobin 6.7 g/dL (12.0-16.0); Mean Corpuscular Hgb Conc 34.2 g/dL (32-36); Mean Corpuscular Volume 82.4 fL (80-100); Mean Platelet Volume 9.4 fL (7.4-10.4); Platelet Count 16 K/uL (130-400); RDW Coefficient of Variation 14.5 % (11.5-14.5); RDW Standard Deviation 42.7 fL (36.4-46.3); Red Blood Count 2.38 M/uL (4.2-5.4); White Blood Count 3.74 K/uL (4.8-10.8)
[2018-10-13] MEDS ORDERED: SODIUM CHLORIDE 0.9% 250 ML IV PRN ×3 (02:00→08:57)
[2018-10-13] MEDS ORDERED: FUROSEMIDE 10 MG in SYRINGE 0 ML IV SCH (02:15)
[2018-10-13] MEDS ORDERED: ACETAMINOPHEN 325 MG TAB PO SCH (02:15)
[2018-10-13] MEDS ORDERED: POTASSIUM CHLORIDE 20 MEQ TABCR PO SCH (02:15)
[2018-10-13] MEDS: PANTOprazole 40 MG in DEXTROSE 5% 100 ML IV SCH ×5 (04:15→23:39)
--- NOTE | 2018-10-13 07:38 | Ultrasound Report ---
US abdomen limited CLINICAL HISTORY: 58 years-old Female presenting with RUQ pain, nausea/vomiting, history of esophagea l cancer. TECHNIQUE: Real-time grayscale and limited color Doppler ultrasound imaging of the abdomen limited to the right upper quadrant was performed. COMPARISON: CT from 06/08/2018. FINDINGS: Pancreas: Visualized portions of the pancreatic head and body normal. Liver: Hyperechogenic parenchyma with heterogeneous echotexture, likely indicating fibrosis or steato sis. The liver measures 16.6 cm in maximal sagittal dimension. Hypoechogenicity along the gallbladder fossa, likely focal fatty sparing. Main portal vein patent with normal directional flow. Biliary: No intrahepatic biliary ductal dilatation. Common bile duct measures up to 4-6 mm in diamete r. Gallbladder: The gallbladder contains extensive layering echogenic material with posterior shadowing and twinkling artifact, likely a mixture of sludge and small gallstones. No spectral Doppler flow wit hin this region. Focus of comet tail and twinkling artifact from the anterior wall may indicate focal adenomyomatosis. No pathologic distention of the gallbladder or evidence of wall thickening. Sonogra phic Mojica's sign negative. Right kidney: Contains a round 2.5 x 2.4 x 2.4 cm anechoic lesion with a single thin septation compat ible with a minimally complex cyst (Bosniak 2). Subcentimeter simple cyst noted at the upper pole. No hydronephrosis. Ascites: None. Other: Trace right pleural effusion. IMPRESSION: 1. Layering gallbladder sludge and small gallstones. No biliary ductal dilatation or evidence of cho lecystitis. 2. Hyperechogenicity and heterogeneity of liver parenchyma suggests underlying steatosis or fibrosis . 3. Minimally complex right renal cyst (Bosniak 2). Electronically signed by: Masood Dai M.D. 10/13/2018 7:37 AM
[2018-10-13 08:20] LABS: Hematocrit (blood only) 21.3 % (37-47); Hemoglobin 7.3 g/dL (12.0-16.0); Mean Corpuscular Hgb Conc 34.3 g/dL (32-36); Mean Corpuscular Volume 82.2 fL (80-100); Mean Platelet Volume 10.3 fL (7.4-10.4); Platelet Count 12 K/uL (130-400); RDW Coefficient of Variation 14.4 % (11.5-14.5); RDW Standard Deviation 42.4 fL (36.4-46.3); Red Blood Count 2.59 M/uL (4.2-5.4); White Blood Count 3.62 K/uL (4.8-10.8)
[2018-10-13 09:15] LABS: BUN Creatinine Ratio 13.8 (10-20); Calcium 8.5 mg/dl (8.5-10.1); Creatinine Clr Calc Pharmacy 105.1 ml/min; Est GFR (African American) 113.4; Est GFR (Non-African American) 97.9; Magnesium 1.6 mg/dl (1.8-2.4)
[2018-10-13] MEDS: PROMETHAZINE HCL 6.25 MG in SODIUM CHLORIDE 0.9% 50 ML IV PRN (09:18)
[2018-10-13] MEDS ORDERED: POTASSIUM CHLORIDE 20 MEQ/15 ML UDC PO STA (09:21)
[2018-10-13] MEDS: MAGNESIUM OXIDE 400 MG TAB PO SCH (09:47)
[2018-10-13] MEDS: MAGNESIUM SULFATE / D5W 1 GM/100 ML BAG IV SCH ×2 (09:47→10:58)
[2018-10-13] MEDS ORDERED: POTASSIUM CHLORIDE 20 MEQ TABCR PO ONE (10:45)
[2018-10-13 11:23] LABS: Hemoglobin 7.2 g/dL (12.0-16.0); Mean Platelet Volume 8.5 fL (7.4-10.4); Platelet Count 21 K/uL (130-400); RDW Coefficient of Variation 14.4 % (11.5-14.5); RDW Standard Deviation 42.4 fL (36.4-46.3); Red Blood Count 2.44 M/uL (4.2-5.4); White Blood Count 4.18 K/uL (4.8-10.8)
--- NOTE | 2018-10-13 18:03 | Hospitalist Progress Note ---
Date of Service October 13, 2018 Assessment & Plan (1) Anemia: Oncology diagnosis: - Lower esophageal adenocarcinoma, 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 Also noticed to have multiple bilateral subcentimeter lung nodules. - S/P 3 cycles of neoadjuvant chemotherapy with modified FOLFOX 6 (5- fluorouracil , Leucovorin and oxaliplatin) along with radiation treatment. - S/P laparascopic/hand assisted/ vats converted to open modified rossy fatuma esophagectomy. Placement of feeding jejunostomy tube on 07/12/2018 .- Final path �> Residual T3 primary tumor, 01/21 lymph node positive for metastases, N2 disease. - Completed 3 cycles of paclitaxel and Carboplatin every 3 weekly between 08/17/2018-09/28/2018). - She did receive prophylactic Neulasta. Pancytopenia from cancer versus blood loss Coffee ground/Black emesis Anemia: -as per gastroenterology service: Most likely, her nausea/vomiting is a chemotherapeutic effect. Her anemia is also, likely an effect of the chemotherapy. Her one episode of a small amt of black emesis may represent gastritis and less likely ulcer disease (unlikely as nausea/vomiting began after last round of chemo) or radiation esophagitis (unlikely as most recent radiation Jul 2018) -as per gastroenterology service Endoscopy is contraindicated when platelet count is <50,000 -on this admission patient has 3 units of PRBC and 2 units of platelets. currently Hgb stabilizing in low 7s and platelets of 21,000 -continue IV pantoprazole Hypokalemia and Hypomagnesemia: Likely due to GI loses patient has had multiple IV infusions of potassium and magnesium supplements; also given oral potassium and oral magnesium will repeat serum potassium and serum magnesium will send stool studies Prolonged QTC: recent EKG with normal QTc continue telemetry monitoring DVT Px: SCDs Code Status Full Code continue to monitor as inpatient Subjective Patient has received multiple infusions so far on this stay of blood products and electrolyte supplementation continues to breath on room air denies acute shortness of breath. denies chest pain or palpitations no vomiting at this time. denies abdominal pain Physical Exam Vital Signs (Past 24 Hours): Last Vital Signs Temp 36.8 C 10/13/18 15:38 Pulse 69 10/13/18 15:38 Resp 18 10/13/18 15:38 BP 107/72 10/13/18 15:38 Pulse Ox 100 10/13/18 15:38 Constitutional: WD/WN, vitals as above Eyes: PERRL, conjunctivae normal, anicteric sclerae EOM intact bilaterally ENMT: external ear and nose normal, oropharynx normal Neck: trachea midline, no thyromegaly Respiratory: normal respiratory effort, lungs clear to auscultation Cardiovascular: Rate/Rhythm: regular rate and regular rhythm Chest (Breasts): Chest: + vascular access device or port Gastrointestinal (Abdomen): normal bowel sounds, soft, nontender, no hepatosplenomegaly Musculoskeletal: Head/Neck/Chest: normocephalic and head atraumatic Neurologic: PERRL, EOMI, accommodation nl, no face palsy, no dysarthria CN's II-XI intact bilaterally Psychiatric: A+Ox3, euthymic affect (1) Anemia Anemia type: unspecified type Qualified Code(s): D64.9 - Anemia, unspecified
[2018-10-13 20:30] LABS: BUN Creatinine Ratio 11.4 (10-20); Calcium 8.6 mg/dl (8.5-10.1); Creatinine Clr Calc Pharmacy 96.3 ml/min; Est GFR (African American) 108.8; Est GFR (Non-African American) 93.9; Potassium 3.3 mmol/L (3.5-5.1)
[2018-10-13 20:37] LABS: Basophils # (auto) 0.01 K/uL (0-0.2); Basophils % (auto) 0.3 %; Eosinophils # (auto) 0.04 K/uL (0-0.5); Hematocrit (blood only) 21.4 % (37-47); Hemoglobin 7.7 g/dL (12.0-16.0); Immature Granulocytes # (auto) 0.01 K/uL (0.00-0.02); Immature Granulocytes % (auto) 0.3 %; Lymphocytes % (auto) 12.7 %; Mean Platelet Volume 9.5 fL (7.4-10.4); Monocytes # (auto) 0.27 K/uL (0.11-0.59); Monocytes % (auto) 6.9 %; Neutrophils % (auto) 78.8 %; Ovalocytes 1+; Platelet Count 22 K/uL (130-400); Platelet Estimate SIGNIFIC DECREASED (Normal); RDW Coefficient of Variation 15.1 % (11.5-14.5); RDW Standard Deviation 44.2 fL (36.4-46.3); Red Blood Count 2.61 M/uL (4.2-5.4); White Blood Count 3.93 K/uL (4.8-10.8)
[2018-10-13] MEDS ORDERED: POTASSIUM CHLORIDE 20 MEQ TABCR PO STA (20:49)
[2018-10-14] MEDS: PANTOprazole 40 MG in DEXTROSE 5% 100 ML IV SCH ×3 (04:43→14:00)
[2018-10-14 05:24] LABS: Calcium 8.1 mg/dl (8.5-10.1); Creatinine Clr Calc Pharmacy 97.6 ml/min; Est GFR (African American) 110.7; Est GFR (Non-African American) 95.5; Magnesium 1.7 mg/dl (1.8-2.4); Potassium 3.4 mmol/L (3.5-5.1)
[2018-10-14 05:38] LABS: Platelet Count 16 K/uL (130-400)
[2018-10-14 05:40] LABS: Eosinophils # (auto) 0.02 K/uL (0-0.5); Eosinophils % (auto) 0.7 %; Hematocrit (blood only) 19.7 % (37-47); Lymphocytes # (auto) 0.58 K/uL (1.2-3.4); Lymphocytes % (auto) 19.8 %; Mean Corpuscular Hgb Conc 35.5 g/dL (32-36); Mean Corpuscular Volume 82.8 fL (80-100); Mean Platelet Volume 9.3 fL (7.4-10.4); Monocytes # (auto) 0.18 K/uL (0.11-0.59); Monocytes % (auto) 6.1 %; Neutrophils # (auto) 2.15 K/uL (1.4-6.5); Neutrophils % (auto) 73.4 %; Ovalocytes 1+; Platelet Estimate SIGNIFIC DECREASED (Normal); RDW Standard Deviation 44.7 fL (36.4-46.3); Red Blood Count 2.38 M/uL (4.2-5.4); Tear Drop Cells 1+; Toxic Granulation 1+; White Blood Count 2.93 K/uL (4.8-10.8)
[2018-10-14] MEDS ORDERED: MAGNESIUM SULFATE / D5W 1 GM/100 ML BAG IV ONE ×2 (06:00→09:30)
[2018-10-14] MEDS ORDERED: POTASSIUM CHLORIDE 10 MEQ TABCR PO ONE (06:00)
[2018-10-14] MEDS ORDERED: SODIUM CHLORIDE 0.9% 250 ML IV PRN (09:00)
[2018-10-14] MEDS: MAGNESIUM OXIDE 400 MG TAB PO SCH (09:25)
--- NOTE | 2018-10-14 11:34 | Gastroenterology Progress Note ---
Date of Service October 14, 2018 Assessment & Plan (1) Anemia: Most likely, her nausea/vomiting is a chemotherapeutic effect. Her anemia is also, likely an effect of the chemotherapy. Her one episode of a small amt of black emesis may represent gastritis and less likely ulcer disease (unlikely as nausea/vomiting began after last round of chemo) or radiation esophagitis (unlikely as most recent radiation Jul 2018). Endoscopy is contraindicated when platelet count is <50,000. Recommend antie-metics, blood and fluids recucsitation. Suggest a regular consistency diet. If nausea/vomiting persist after thrombocytopenia is resolved then would be happy to provide EGD at that time. Would also go forward with EGD (after further platelet infusions) if there is another drop in her Hb/Hct. GI will sign off, please notify us of any new worrisome GI issues (2) Nausea & vomiting: (3) Hematemesis: (4) Cholelithiasis: Patient suspects that she has some gallbladder problems that she has had some intermittent right upper abdomen discomfort and nausea over the past few years. Ultrasound with gallstones but no acute cholecystitis or clear evidence of chronic cholecystitis. At this point would not pursue any surgical opinion but might consider after cancer treatment is completed if this intermittent right upper quadrant pain continues. Supervising Physician Co-Signing Physician Notes I have seen and examined the patient and discussed the management with DENIS Elizabeth. She is profoundly thrombocytopenic - agree with the GI plan from this week to hold on endoscopy. Agree with further plan of care as documented in Merlene's assesment and plan. Subjective Ms. 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 She presented to the ED on 10/12 for nausea/vomiting and was found to be pancytopenic. Since admission: nausea/vomiting nearly resolved. Received blood transfusion and Hb stable post transfusion. Platelet count < 50 has precluded safe endosocpy. She had reported one emesis 2 days ago that was black and small volume. Otherwise no gross GI bleeding. Constitutional: + fatigue (improving); no fever, no chills, no sweats and no body aches Eyes: no dry eyes, no eye pain and no itchy eyes Ear, Nose, Mouth, Throat: no tinnitus, no dizziness and no hoarseness Respiratory: no cough, no chest congestion and no dyspnea Cardiovascular: no chest pain, no palpitations, no syncope and no edema Gastrointestinal: + nausea (improved); no abdominal pain, no early satiety and no vomiting food aversion Genitourinary (Female): no dysuria and no hematuria Integumentary: no rash, no lesions and no dry skin Neurologic: no gait abnormality and no confusion was generally very weak - much improved after transfion. No focal neuro changes Psychiatric: no depression, no hopelessness, no irritability and no anxiety very pleasant, very good communicator Physical Exam Vital Signs (Past 24 Hours): Last Vital Signs Temp 36.7 C 10/14/18 11:05 Pulse 77 10/14/18 11:05 Resp 20 10/14/18 11:05 BP 90/61 L 10/14/18 11:05 Pulse Ox 99 10/14/18 11:05 Constitutional: WD/WN, vitals as above well developed, well nourished and + acute distress Eyes: PERRL, conjunctivae normal, anicteric sclerae Neck: trachea midline, no thyromegaly Respiratory: normal respiratory effort, lungs clear to auscultation Cardiovascular: RRR, no murmur, no edema Gastrointestinal (Abdomen): normal bowel sounds, soft, nontender, no hepatosplenomegaly Neurologic: PERRL, EOMI, accommodation nl, no face palsy, no dysarthria Psychiatric: A+Ox3, euthymic affect Lymphatic: no cervical or axillary lymphadenopathy Results & Data Laboratory Results WBC 2.9, hemoglobin 7, hematocrit 19, white blood cells 16, sodium 141, potassium 3.4, BUN 8, creatinine 0.7. Diagnostic Findings GB US: 1. Layering gallbladder sludge and small gallstones. No biliary ductal dilatation or evidence of cholecystitis. 2. Hyperechogenicity and heterogeneity of liver parenchyma suggests underlying steatosis or fibrosis. 3. Minimally complex right renal cyst (Bosniak 2). (1) Anemia Anemia type: unspecified type Qualified Code(s): D64.9 - Anemia, unspecified (2) Nausea & vomiting Vomiting Intractability: non-intractable Vomiting type: unspecified Quali fied Code(s): R11.2 - Nausea with vomiting, unspecified
--- NOTE | 2018-10-14 17:47 | Hospitalist Progress Note ---
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 Also noticed to have multiple bilateral subcentimeter lung nodules. S/P 3 cycles of neoadjuvant chemotherapy with modified FOLFOX 6 (5-fluorouracil , Leucovorin and oxaliplatin) along with radiation treatment. S/P laparascopic/hand assisted/ vats converted to open modified rossy fatuma esophagectomy. Placement of feeding jejunostomy tube on 07/12/2018 Final path �> Residual T3 primary tumor, 01/21 lymph node positive for metastas es, N2 disease. Completed 3 cycles of paclitaxel and Carboplatin every 3 weekly between 08/17/2018-09/28/2018). She did receive prophylactic Neulasta) Pancytopenia from cancer and cancer treatments Coffee ground/Black emesis Anemia: -as per gastroenterology service: Most likely, her nausea/vomiting is a chemotherapeutic effect. Her anemia is also, likely an effect of the chemotherapy. Her one episode of a small amt of black emesis may represent gastritis and less likely ulcer disease (unlikely as nausea/vomiting began after last round of chemo) or radiation esophagitis (unlikely as most recent radiation Jul 2018) -as per gastroenterology service Endoscopy is contraindicated when platelet count is <50,000 -admission Hgb 5.5 and platelets of 7,000 on 10/12/18 -on this admission patient has 4 units of PRBC and 2 units of platelets. currently Hgb stabilizing in low 7s and hopefully after the 4 unit or PRBC on 10/14/18 that the Hgb will be closer to 8. platelets of 16,000 and try to maintain above 10,000 -no recent vomiting in hospital and will switch from IV pantoprazole to Po pantoprazole Hypokalemia and Hypomagnesemia: Likely due to GI loses patient has had multiple IV infusions of potassium and magnesium supplements on this admission with oral potassium and oral magnesium last checked serum potassium is 3.4 and serum magnesium is 1.7; further oral supplements given today and IV magnesium Prolonged QTC: recent EKG with normal QTc continue telemetry monitoring DVT Px: SCDs Code Status Full Code continue to monitor as inpatient Subjective Patient's Hgb of 7 and received 1 unit or PRBC. continues to breath on room air denies acute shortness of breath. denies chest pain or palpitations no vomiting at this time. denies abdominal pain. denies blood from orifices Physical Exam Vital Signs (Past 24 Hours): Last Vital Signs Temp 36.8 C 10/14/18 16:13 Pulse 71 10/14/18 16:13 Resp 18 10/14/18 16:13 BP 92/66 L 10/14/18 16:13 Pulse Ox 100 10/14/18 16:13 Constitutional: WD/WN, vitals as above Eyes: PERRL, conjunctivae normal, anicteric sclerae EOM intact bilaterally ENMT: external ear and nose normal, oropharynx normal Neck: trachea midline, no thyromegaly Respiratory: normal respiratory effort, lungs clear to auscultation Cardiovascular: Rate/Rhythm: regular rate and regular rhythm Chest (Breasts): Chest: + vascular access device or port Gastrointestinal (Abdomen): normal bowel sounds, soft, nontender, no hepatosplenomegaly Musculoskeletal: Head/Neck/Chest: normocephalic and head atraumatic Neurologic: PERRL, EOMI, accommodation nl, no face palsy, no dysarthria CN's II-XI intact bilaterally Psychiatric: A+Ox3, euthymic affect (1) Anemia Anemia type: unspecified type Qualified Code(s): D64.9 - Anemia, unspecified
--- NOTE | 2018-10-14 18:30 | Hematology/Oncology Prog Note ---
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 Also noticed to have multiple bilateral subcentimeter lung nodules. - S/P 3 cycles of neoadjuvant chemotherapy with modified FOLFOX 6 (5- fluorouracil , Leucovorin and oxaliplatin) along with radiation treatment. - S/P laparascopic/hand assisted/ vats converted to open modified rossy fatuma esophagectomy. Placement of feeding jejunostomy tube on 07/12/2018 .- Final path �> Residual T3 primary tumor, 01/21 lymph node positive for metastases, N2 disease. - Completed 3 cycles of paclitaxel and Carboplatin every 3 weekly between 08/17/2018-09/28/2018). She did receive prophylactic Neulasta following last chemotherapy treatment. Now admitted for symptomatic anemia, increasing nausea, vomiting, most likely related to the recent chemotherapy treatment, received blood transfusion, platelet transfusion, I saw her bedside today, she says that she is feeling much better, sitting comfortable in the bed, no fever, hemodynamically stable, able to eat and swallow better, Blood workup done on 10/14/2018: - WBC 2900, H&H of 7/19.7, Platelet count of 16,000. She is likely received 1 unit PRBC and then likely to go home over the weekend I am planning to check with her early next week with [facility] CMP and consider for blood and platelet transfusion based on the blood test results. Appreciate GI input. Agree about no need for endoscopic evaluation at this time. She scheduled for follow-up imaging study as an outpatient in the next few months. Will follow-up in the clinic. Lazaro Ambrocio MD Hem/Onc Physical Exam Vital Signs (Past 24 Hours): Last Vital Signs Temp 36.8 C 10/14/18 16:13 Pulse 71 10/14/18 16:13 Resp 18 10/14/18 16:13 BP 92/66 L 10/14/18 16:13 Pulse Ox 100 10/14/18 16:13 (1) Anemia Anemia type: unspecified type Qualified Code(s): D64.9 - Anemia, unspecified
[2018-10-14] MEDS: PANTOprazole 40 MG TAB PO SCH (19:45)
[2018-10-14] MEDS ORDERED: MAGNESIUM OXIDE 400 MG TAB PO SCH (21:00)
[2018-10-15] MEDS ORDERED: HEPARIN 100 UNIT/ML 5ML FLUSH FLUSH PRN (01:43)
[2018-10-15 05:09] LABS: BUN Creatinine Ratio 10.7 (10-20); Calcium 8.3 mg/dl (8.5-10.1); Creatinine Clr Calc Pharmacy 99.6 ml/min; Est GFR (African American) 111.8; Est GFR (Non-African American) 96.4; Magnesium 1.7 mg/dl (1.8-2.4); Potassium 3.7 mmol/L (3.5-5.1)
[2018-10-15 05:40] LABS: Hematocrit (blood only) 22.5 % (37-47); Hemoglobin 7.9 g/dL (12.0-16.0); Mean Corpuscular Hgb Conc 35.1 g/dL (32-36); Mean Corpuscular Volume 83.6 fL (80-100); Mean Platelet Volume 9.8 fL (7.4-10.4); Platelet Count 13 K/uL (130-400); RDW Standard Deviation 44.8 fL (36.4-46.3); Red Blood Count 2.69 M/uL (4.2-5.4); White Blood Count 2.58 K/uL (4.8-10.8)
[2018-10-15 05:43] LABS: Dohle Bodies 1+; Eosinophils # (auto) 0.02 K/uL (0-0.5); Eosinophils % (auto) 0.8 %; Immature Granulocytes # (auto) 0.01 K/uL (0.00-0.02); Immature Granulocytes % (auto) 0.4 %; Lymphocytes # (auto) 0.54 K/uL (1.2-3.4); Lymphocytes % (auto) 20.9 %; Monocytes # (auto) 0.19 K/uL (0.11-0.59); Monocytes % (auto) 7.4 %; Neutrophils # (auto) 1.82 K/uL (1.4-6.5); Neutrophils % (auto) 70.5 %; Toxic Granulation 1+
[2018-10-15] MEDS ORDERED: SODIUM CHLORIDE 0.9% 250 ML IV PRN (07:23)
[2018-10-15] MEDS: MAGNESIUM SULFATE / D5W 1 GM/100 ML BAG IV SCH ×2 (08:33→09:31)
[2018-10-15] MEDS: MAGNESIUM OXIDE 400 MG TAB PO SCH (08:37)
[2018-10-15] MEDS: PANTOprazole 40 MG TAB PO SCH (08:37)
[2018-10-15] MEDS ORDERED: POTASSIUM CHLORIDE 20 MEQ/15 ML UDC PO SCH (09:00)
[2018-10-15] MEDS: PROMETHAZINE HCL 6.25 MG in SODIUM CHLORIDE 0.9% 50 ML IV PRN (09:31)
[2018-10-15 13:19] LABS: Hemoglobin 8.5 g/dL (12.0-16.0); Mean Corpuscular Volume 84.5 fL (80-100); Mean Platelet Volume 9.7 fL (7.4-10.4); Platelet Count 36 K/uL (130-400); RDW Coefficient of Variation 15.1 % (11.5-14.5); RDW Standard Deviation 46.3 fL (36.4-46.3); Red Blood Count 2.96 M/uL (4.2-5.4); White Blood Count 3.94 K/uL (4.8-10.8)
[2018-10-15 13:32] LABS: Basophils # (auto) 0.01 K/uL (0-0.2); Basophils % (auto) 0.3 %; Eosinophils # (auto) 0.02 K/uL (0-0.5); Eosinophils % (auto) 0.5 %; Immature Granulocytes # (auto) 0.01 K/uL (0.00-0.02); Immature Granulocytes % (auto) 0.3 %; Lymphocytes % (auto) 12.7 %; Monocytes # (auto) 0.25 K/uL (0.11-0.59); Monocytes % (auto) 6.3 %; Neutrophils # (auto) 3.15 K/uL (1.4-6.5); Neutrophils % (auto) 79.9 %; RBC Morphology Unremarkable
--- NOTE | 2018-10-15 13:48 | Hospitalist Progress Note ---
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 Also noticed to have multiple bilateral subcentimeter lung nodules. S/P 3 cycles of neoadjuvant chemotherapy with modified FOLFOX 6 (5-fluorouracil , Leucovorin and oxaliplatin) along with radiation treatment. S/P laparascopic/hand assisted/ vats converted to open modified rossy fatuma esophagectomy. Placement of feeding jejunostomy tube on 07/12/2018 Final path �> Residual T3 primary tumor, 01/21 lymph node positive for metastas es, N2 disease. Completed 3 cycles of paclitaxel and Carboplatin every 3 weekly between 08/17/2018-09/28/2018). She did receive prophylactic Neulasta) -Patient is to Follow up with Dr. Ambrocio at Oncology clinic at [facility] Pancytopenia from cancer and cancer treatments Coffee ground/Black emesis Anemia: -as per gastroenterology service: Most likely, her nausea/vomiting is a chemotherapeutic effect. Her anemia is also, likely an effect of the chemotherapy. Her one episode of a small amt of black emesis may represent gastritis and less likely ulcer disease (unlikely as nausea/vomiting began after last round of chemo) or radiation esophagitis (unlikely as most recent radiation Jul 2018) -as per gastroenterology service Endoscopy is contraindicated when platelet count is <50,000 -admission Hgb 5.5 and platelets of 7,000 on 10/12/18 -on this admission patient has 4 units of PRBC and 3 units of platelets with the last platelet transfusion given on 10/15/18 because Patient's platelets were downtrending to 13,000 -discharge day 10/15/18 of Hgb 8.5 and platelet 36,000 -no recent vomiting in hospital and have switched from IV pantoprazole to PO pantoprazole on 10/14/18 Patient is discharged to home with prescriptions BID pantoprazole medications electronically sent to her pharmacy Hypokalemia and Hypomagnesemia: Likely due to GI losses patient has had multiple IV infusions of potassium and magnesium supplements on this admission with oral potassium and oral magnesium 10/15/18Patient also received IV magnesium supplements in addition to oral magnesium and serum magnesium level as 2.3; serum potassium is 3.7 Patient is discharged to home with prescriptions of daily potassium supplements and BID magnesium supplements and BID pantoprazole medications electronically sent to her pharmacy Prolonged QTC: recent EKG with normal QTc DVT Px: SCDs Code Status Full Code Discharge Diagnosis Coffee ground/Black emesis, Lower esophageal adenocarcinoma, Pancytopenia, Hypokalemia, Hypomagnesemia Discharge Instructions Patient is discharged to home with prescriptions of daily potassium supplements and BID magnesium supplements and BID pantoprazole medications electronically se nt to her pharmacy Discharge Follow up appointments Follow up with Dr. Ambrocio at Oncology clinic at [facility] Other appointments 10/20/2018 1:20 PM Provider Josiah Sampson MD Department [facility] 10/26/2018 10:45 AM Provider PET Department Radiology [address] 11/09/2018 9:15 AM Provider Lazaro Ambrocio MD Department Hematology/Oncology [facility] 11/09/2018 9:45 AM Provider Chair 6 Hem Onc [facility] Department Hematology/Oncology Treatment, [place] 12/06/2018 10:40 AM Provider Josiah Sampson MD Department [facility] Subjective Patient's platelets were downtrending to 13,000 and patient received 1 unit of platelet with subsequent repeat labs of Hgb 8.5 and platelet 36,000 Patient also received IV magnesium supplements in addition to oral magnesium and serum magnesium level as 2.3 Patient continues to breath on room air denies acute shortness of breath. denies chest pain or palpitations no vomiting at this time. denies abdominal pain. denies blood from orifices Physical Exam Vital Signs (Past 24 Hours): Last Vital Signs Temp 36.7 C 10/15/18 10:58 Pulse 65 10/15/18 10:58 Resp 18 10/15/18 10:58 BP 101/68 10/15/18 10:58 Pulse Ox 100 10/15/18 10:58 Constitutional: WD/WN, vitals as above Eyes: PERRL, conjunctivae normal, anicteric sclerae EOM intact bilaterally ENMT: external ear and nose normal, oropharynx normal Neck: trachea midline, no thyromegaly Respiratory: normal respiratory effort, lungs clear to auscultation Cardiovascular: Rate/Rhythm: regular rate and regular rhythm Chest (Breasts): Chest: + vascular access device or port Gastrointestinal (Abdomen): normal bowel sounds, soft, nontender, no hepatosplenomegaly Musculoskeletal: Head/Neck/Chest: normocephalic and head atraumatic Neurologic: PERRL, EOMI, accommodation nl, no face palsy, no dysarthria CN's II-XI intact bilaterally Psychiatric: A+Ox3, euthymic affect (1) Anemia Anemia type: unspecified type Qualified Code(s): D64.9 - Anemia, unspecified
--- NOTE | 2018-10-15 13:56 | Discharge Summary ---
Date of Service October 15, 2018 Admission HPI Per Admitting Provider Patient is a 58-year-old female with past medical history of lower esophageal adenocarcinoma S/P Surgery, chemo and radiation therapy and other problems presents with history of nausea and vomiting since 2 weeks duration. Patient's last chemotherapy was 3 weeks ago. She follows with Dr. Lazaro Ambrocio as outpatient. She states having intermittent nausea vomiting since last chemotherapy. She noticed having black colored emesis. Also reports some intermittent diarrhea which has been ongoing since her surgery. She states having mild generalized abdominal pain intermittently, crampy in nature, non- radiating, 2/10 intensity, with no aggravating and relieving factors. Reports dizziness since last 2 days with positional change. She noticed having epistaxis yesterday which was self limiting. She denies any history of bright red blood in stool, melena. Denies any history of chest pain, SOB, cough, fever, chills, fall, head trauma, headache, dysuria, hematuria, recent change in medications. Admission Exam Per Admitting Provider Physical Exam: Vitals signs as noted above General Appearance:Moderately built and nourished, no apparent distress Head: normocephalic, Atraumatic Eyes: normal inspection, EOMI Neck: supple, Trachea midline Chest:Chemo port on left side of chest Respiratory/Chest: Normal breath sounds, CTA Cardiovascular: S1, S2, No murmur Abdomen/GI:Soft, Non tender, Bowel sounds present, Surgical scar on right side of abd/flank Extremities/Musculoskelatal:normal inspection, no edema Neurologic/Psych:AAOX3, grossly no focal neurological deficits Skin: normal color, warm Principal Diagnosis Coffee ground/Black emesis, Lower esophageal adenocarcinoma, Pancytopenia, Hypokalemia, Hypomagnesemia Discharge Exam Constitutional WD/WN, vitals as above Eyes PERRL, conjunctivae normal, anicteric sclerae EOM intact bilaterally ENMT external ear and nose normal, oropharynx normal Neck trachea midline, no thyromegaly Respiratory normal respiratory effort, lungs clear to auscultation Cardiovascular Rate/Rhythm: regular rate and regular rhythm Chest (Breasts) Chest: + vascular access device or port Gastrointestinal (Abdomen) normal bowel sounds, soft, nontender, no hepatosplenomegaly Musculoskeletal Head/Neck/Chest: normocephalic and head atraumatic Neurologic PERRL, EOMI, accommodation nl, no face palsy, no dysarthria CN's II-XI intact bilaterally Psychiatric A+Ox3, euthymic affect Discharge Data Allergies Allergy/AdvReac Type Severity Reaction Status Date / Time Penicillins Allergy Intermediate Rash Verified 10/12/18 09:43 Sulfa (Sulfonamide AdvReac Severe Rash Verified 10/12/18 09:43 Antibiotics) Consultations 10/12/18 11:43 ED Decision to Admit Stat 10/12/18 14:53 Consult Case Management - Discharge Planning Routine Consult Gastroenterology Routine Consult Hematology Routine Procedures Performed Operation Date: 10/13/18 10:15 <No data on this case meets the specified criteria> Ordered Studies 10/12/18 11:28 CT head/brain wo con Stat 10/12/18 17:17 US abdomen limited Routine Hospital Course (1) Anemia: Oncology diagnosis as per Oncology inpatient notes in regards to 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 Also noticed to have multiple bilateral subcentimeter lung nodules. S/P 3 cycles of neoadjuvant chemotherapy with modified FOLFOX 6 (5-fluorouracil , Leucovorin and oxaliplatin) along with radiation treatment. S/P laparascopic/hand assisted/ vats converted to open modified rossy fatuma esophagectomy. Placement of feeding jejunostomy tube on 07/12/2018 Final path �> Residual T3 primary tumor, 01/21 lymph node positive for metastases, N2 disease. Completed 3 cycles of paclitaxel and Carboplatin every 3 weekly between 08/17/2018-09/28/2018). She did receive prophylactic Neulasta) -Patient is to Follow up with Dr. Ambrocio at Oncology clinic at [facility] Pancytopenia from cancer and cancer treatments Coffee ground/Black emesis Anemia: -as per gastroenterology service: Most likely, her nausea/vomiting is a chemotherapeutic effect. Her anemia is also, likely an effect of the chemotherapy. Her one episode of a small amt of black emesis may represent gastritis and less likely ulcer disease (unlikely as nausea/vomiting began after last round of chemo) or radiation esophagitis (unlikely as most recent radiation Jul 2018) -as per gastroenterology service Endoscopy is contraindicated when platelet count is <50,000 -admission Hgb 5.5 and platelets of 7,000 on 10/12/18 -on this admission patient has 4 units of PRBC and 3 units of platelets with the last platelet transfusion given on 10/15/18 because Patient's platelets were downtrending to 13,000 -discharge day 10/15/18 of Hgb 8.5 and platelet 36,000 -no recent vomiting in hospital and have switched from IV pantoprazole to PO pantoprazole on 10/14/18 Patient is discharged to home with prescriptions BID pantoprazole medications electronically sent to her pharmacy Hypokalemia and Hypomagnesemia: Likely due to GI losses patient has had multiple IV infusions of potassium and magnesium supplements on this admission with oral potassium and oral magnesium 10/15/18Patient also received IV magnesium supplements in addition to oral magnesium and serum magnesium level as 2.3; serum potassium is 3.7 Patient is discharged to home with prescriptions of daily potassium supplements and BID magnesium supplements and BID pantoprazole medications electronically sent to her pharmacy Prolonged QTC: recent EKG with normal QTc DVT Px: SCDs Code Status Full Code Discharge Diagnosis Coffee ground/Black emesis, Lower esophageal adenocarcinoma, Pancytopenia, Hypokalemia, Hypomagnesemia Discharge Instructions Patient is discharged to home with prescriptions of daily potassium supplements and BID magnesium supplements and BID pantoprazole medications electronically sent to her pharmacy Discharge Follow up appointments Follow up with Dr. Ambrocio at Oncology clinic at [facility] Other appointments 10/20/2018 1:20 PM Provider Josiah Sampson MD Department [facility] 10/26/2018 10:45 AM Provider PET Department Radiology [address], [place] 11/09/2018 9:15 AM Provider Lazaro Ambrocio MD Department Hematology/Oncology [facility] 11/09/2018 9:45 AM Provider Chair 6 Hem Onc [facility] Department Hematology/Oncology Treatment, [place] 12/06/2018 10:40 AM Provider Josiah Sampson MD Department [facility] Total Time Total Time Spent Total Time Spent (In Minutes): 40 minutes Total Time Includes: Examination of the Patient, Discharge Planning and Medication Reconciliation Discharge Plan Discharge Items Patient Disposition: Home - Self-Care Reason For Visit: NAUSEA, VOMITING AND DIARRHEA Discharge Diagnosis: Coffee ground/Black emesis, Lower esophageal adenocarcinoma, Pancytopenia, Hypokalemia, Hypomagnesemia Condition: Good Discharge Goals: Improve disease control Activity: Resume your previous activity Non-emergency contact: Primary Care Provider and Oncologist Call non-emergency contact if: you have any medication questions Follow-up/Referrals: Josiah Sampson [Primary Care Provider] - Diet: Regular Addtl Provider Instructions: Patient is discharged to home with prescriptions of daily potassium supplements and BID magnesium supplements and BID pantoprazole medications electronically sent to her pharmacy Discharge Follow up appointments Follow up with Dr. Ambrocio at Oncology clinic at [facility] Other appointments 10/20/2018 1:20 PM Provider Josiah Sampson MD Department [facility] 10/26/2018 10:45 AM Provider PET Department Radiology [address] 11/09/2018 9:15 AM Provider Lazaro Ambrocio MD Department Hematology/Oncology [facility] 11/09/2018 9:45 AM Provider Chair 6 Hem Onc [facility] Department Hematology/Oncology Treatment, [place] 12/06/2018 10:40 AM Provider Josiah Sampson MD Department [facility] Prescriptions: New pantoprazole 40 mg Tablet,Delayed Release (Dr/Ec) 40 mg PO BID 30 Days Qty: 60 RF: 0 magnesium oxide 400 mg capsule 400 mg PO BID 10 Days Qty: 20 RF: 0 potassium chloride 10 mEq capsule, extended release 10 meq PO QAM 10 Days Qty: 10 RF: 0 Continued polyethylene glycol 3350 [Miralax] 17 gram/dose powder 1 gm PO DAILY PRN (Reason: constipation) RF: 0 Stand-Alone Forms: [facility] Discharge Orders: Discharge Order (Routine); Ordered 10/15/18 Ordered By: Eleuterio Hdz Admission Data Admit Date/Time: 10/12/18 13:03 Attending Provider: Eleuterio Hdz Admit Provider: Tai Trejo Primary Care Provider: Josiah Sampson Other Providers: Tai Trejo ; Alexandre Romero ; Lazaro Ambrocio Service: Telemetry
== END 2018-10-15 14:41 | disposition home or self-care (01) | DRG 809 ==
LOC: ED 09:16 → 2S 13:03
DX: D61.810 Antineoplastic chemotherapy induced pancytopenia; R19.7 Diarrhea, unspecified; E87.6 Hypokalemia; T45.1X5A Adverse effect of antineoplastic and immunosuppressive drugs, initial encounter; C15.5 Malignant neoplasm of lower third of esophagus; K92.0 Hematemesis; Z92.3 Personal history of irradiation; E83.42 Hypomagnesemia

== ENCOUNTER 2019-10-06 12:36 | Inpatient (IN) ==
[2019-10-06] MEDS ORDERED: SODIUM CHLORIDE 0.9% 1000ML 1,000 ML IV ONE (13:41)
[2019-10-06] MEDS ORDERED: cefTRIAXone SODIUM 1,000 MG/50 ML BAG IV STA (13:41)
[2019-10-06] MEDS ORDERED: ALBUT/IPRATROP 3MG/0.5MG NEB 3 ML VIAL NEB STA (13:43)
--- NOTE | 2019-10-06 14:02 | XRay Report ---
XR chest 1V portable CLINICAL HISTORY: SOB dyspnea COMPARISON STUDY: 10/12/2018 FINDINGS: Central catheter remains in the superior vena cava. Parenchymal infiltrate throughout the left lung base. Minimal infiltrative changes right base. The upper lungs are clear. IMPRESSION: Interval development of a left and to a lesser extent right basilar parenchymal infiltra nathan. ACT 112: Negative or not required by law. The above report was generated using voice recognition software. It may contain grammatical, syntax or spelling errors. Electronically signed by: Sekou Pinto M.D. 10/06/2019 2:01 PM
[2019-10-06 14:36] LABS: Basophils # (auto) 0.02 K/uL (0-0.2); Basophils % (auto) 0.4 %; Eosinophils # (auto) 0.08 K/uL (0-0.5); Eosinophils % (auto) 1.6 %; Hematocrit (blood only) 38.8 % (37-47); Hemoglobin 12.5 g/dL (12.0-16.0); Immature Granulocytes # (auto) 0.02 K/uL (0.00-0.02); Immature Granulocytes % (auto) 0.4 %; Lymphocytes # (auto) 0.49 K/uL (1.2-3.4); Lymphocytes % (auto) 9.9 %; Mean Corpuscular Hemoglobin 29.8 pg (25-34); Mean Corpuscular Hgb Conc 32.2 g/dL (32-36); Mean Corpuscular Volume 92.4 fL (80-100); Mean Platelet Volume 10.7 fL (7.4-10.4); Monocytes # (auto) 0.43 K/uL (0.11-0.59); Monocytes % (auto) 8.7 %; Platelet Count 112 K/uL (130-400); RDW Coefficient of Variation 13.5 % (11.5-14.5); RDW Standard Deviation 45.3 fL (36.4-46.3); White Blood Count 4.94 K/uL (4.8-10.8)
[2019-10-06 14:45] LABS: INR 1.1 (0.9-1.1); Partial Thromboplastin Ratio 1.5; Partial Thromboplastin Time 39.9 Seconds (21.0-31.0)
[2019-10-06 14:59] LABS: Alanine Aminotransferase 11 U/L (12-78); Albumin Level 2.6 gm/dl (3.4-5.0); Aspartate Aminotransferase 12 U/L (15-37); BUN Creatinine Ratio 30.2 (10-20); Blood Urea Nitrogen 22 mg/dl (7-18); Carbon Dioxide 28 mmol/L (21-32); Chloride 102 mmol/L (98-107); Creatinine Clr Calc Pharmacy 76.6 ml/min; Est GFR (African American) 102.8; Est GFR (Non-African American) 88.7; Glucose 102 mg/dl (70-99); Potassium 3.3 mmol/L (3.5-5.1); Sodium 136 mmol/L (136-145)
[2019-10-06 15:04] LABS: Albumin Globulin Ratio 0.6 (0.9-2); Alkaline Phosphatase 85 U/L (45-117); Bilirubin,Total 1.3 mg/dl (0.2-1); Globulin 4.5 gm/dl (2.5-4.0); Total Protein 7.1 gm/dl (6.4-8.2); Troponin I < 0.015 ng/ml (0-0.045)
[2019-10-06 15:19] LABS: Influenza A virus by PCR Neg for Influ A (Neg); Influenza B virus by PCR Neg for Influ B (Neg)
--- NOTE | 2019-10-06 15:43 | Emergency Department Note ---
Entered by Valentín Ambrocio acting as a scribe for Vinita Goodwin MD History of Present Illness General Chief complaint: Shortness of Breath/Dyspnea Stated complaint: SOB,COUGHING Source: patient Limitations: no limitations History of Present Illness Onset (ago): day(s) 3 Location: chest Pain Consistency: + constant Quality: + constant Associated symptoms: + cough and + nausea/vomiting (vomiting) The patient is a 59 year old female who presents to the Emergency Room with complaints of constant SOB starting 3 days ago. The patient states she does not have an esophagus. She states three days ago she burped up acid and it went down the wrong pipe. She states she has been coughing since. She states she has not checked her temperature but states she feels hot. She notes she has been vomiting. She notes she went to [facility] today and was told to come to the ED because they were concerned she had a blood clot. She states she has been vomiting. She notes she has been under a lot of stress recently because her 3 weeks ago. The patient denies having pain with taking a deep breath and having chest pain. She states she did not get the flu swab test today. Home Medications Home Medications Medication Instructions Recorded Confirmed Type sennosides 8.6 mg tablet 8.6 mg PO QAM tab 12/08/18 10/06/19 History lorazepam [Ativan] 0.5 mg PO TID PRN 10/06/19 10/09/19 History omeprazole 40 mg capsule,delayed 40 mg PO BID 10/06/19 10/06/19 History release tramadol [Ultram] 50 mg PO Q6H PRN 10/06/19 10/09/19 History albuterol sulfate 2 puffs INH Q4H PRN #18 gm 10/08/19 10/09/19 Rx clindamycin HCl 450 mg PO Q8H 10 Days #90 cap 10/08/19 10/09/19 Rx doxycycline hyclate 100 mg PO BID 7 Days #14 cap 10/08/19 10/09/19 Rx potassium chloride [Klor-Con 10] 20 meq PO DAILY 5 Days #10 tab 10/08/19 10/09/19 Rx ciprofloxacin HCl 500 mg tablet 500 mg PO q12h #28 tab 10/09/19 10/09/19 Rx Allergies Allergy/AdvReac Type Severity Reaction Status Date / Time Penicillins Allergy Intermediate Rash Verified 10/06/19 16:07 Sulfa (Sulfonamide AdvReac Severe Rash Verified 10/06/19 16:07 Antibiotics) Past Med/Surg History Medical History (Updated 10/07/19 @ 20:37 by Yosvany Judd MD) Adenocarcinoma of esophagus (02/22/18) "History of reflux esophagitis Development of weight loss and dysphagia Status post upper GI endoscopy and biopsy February 22, 2018 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 Radiation therapy completed May 12, 2018. She received 5040 cGy. Esophageal cancer (Chronic) GERD (gastroesophageal reflux disease) Surgical History H/O left knee surgery History of esophageal surgery (Acute) Family History (Updated 10/06/19 @ 17:22 by Chary Huerta PA-C) Father Esophageal cancer Social History Preferred Language: Greenlandic Communication Ability: Effective Clinical Application Specialist Required: No Beliefs That Will Affect Care: None marital status: Current Living Situation: Family Feels Safe at Home: Yes Smoking Status: Former smoker Tobacco Type: cigarettes ; Second Hand Exposure: No ; Hx Alcohol Use: Yes Alcohol type: wine Hx Substance Use: No Review of Systems See HPI for pertinent positives & negatives. and A total of 10 systems reviewed and were otherwise negative Physical Exam Vital Signs Vital Signs - 24 hr 10/06/19 12:37 10/06/19 12:48 10/06/19 13:28 Temperature 36.8 C Temperature Source Oral Pulse Rate 125 H Pulse Rate [Apical] Respiratory Rate 22 Respiratory Effort / Characteristics Non-Labored Spontaneous Non-Labored Spontaneous Respiratory Depth Normal Normal Respiratory Pattern Regular Blood Pressure 108/78 Blood Pressure [Left Arm] Blood Pressure Mean 88 Blood Pressure Mean [Left Arm] Blood Pressure Position Sitting Pulse Oximetry 88 L 87 L Oxygen Delivery Method Room Air Room Air Room Air Oxygen Flow Rate Sepsis Recent Fever Within 48 Hours Yes Sepsis Action Taken by Nursing No Action Required 10/06/19 13:29 10/06/19 14:42 10/06/19 15:42 Temperature Temperature Source Pulse Rate Pulse Rate [Apical] 98 H Respiratory Rate 20 18 Respiratory Effort / Characteristics Non-Labored Spontaneous Respiratory Depth Respiratory Pattern Blood Pressure Blood Pressure [Left Arm] 110/70 Blood Pressure Mean Blood Pressure Mean [Left Arm] 83 Blood Pressure Position Pulse Oximetry 87 L 94 96 Oxygen Delivery Method Room Air Nasal Cannula Nasal Cannula Oxygen Flow Rate 4 4 Sepsis Recent Fever Within 48 Hours Sepsis Action Taken by Nursing Vital signs reviewed. General: Well-appearing older female, in no significant distress. On nasal cannula oxygen. HEENT: No scleral icterus, PERRLA, neck supple. Atraumatic. Cardiovascular: Regular rate and rhythm, no extra sounds. Pulmonary: Clear to auscultation bilaterally, normal work of breathing. Moist cough. Coarse breath sounds bibasilar, left greater than right. Abdomen: Soft, nontender, nondistended, positive bowel sounds. Musculoskeletal: Atraumatic, no peripheral edema. Neurologic: Patient awake alert and oriented x 3. Skin: Warm, dry, no rash Course Course 1334: The patient was evaluated in room A2, and a complete history and physical examination were performed. 1553: I updated the patient on her labs and imaging results. I recommended admission, and the patient agrees with the plan. 1609: I discussed the patient's case with Chary Angela PA-C. Dr. Isela Angela Hospitalist will evaluate the patient for further management Administered Medications Discontinued Medications Albuterol (Duoneb) 3 ml NEB NOW STA Stop: 10/06/19 13:44 Last Admin: 10/06/19 14:41 Dose: 3 ml Documented by: [id number] Enoxaparin Sodium (Lovenox) 40 mg SQ Q24H PHANI Stop: 11/05/19 20:59 Last Admin: 10/07/19 20:50 Dose: 40 mg Documented by: [id number] Admin: 10/06/19 19:41 Dose: 40 mg Documented by: [id number] Sodium Chloride (Nss 1000ml) 1,000 mls @ 999 mls/hr IV .Q1H1M ONE Stop: 10/06/19 14:41 Last Infusion: 10/06/19 15:45 Dose: 0 mls/hr Documented by: [id number] Admin: 10/06/19 14:37 Dose: 999 mls/hr Documented by: [id number] Ceftriaxone Sodium (Rocephin) 1,000 mg in 50 mls @ 100 mls/hr IV NOW STA Stop: 10/06/19 14:10 Last Infusion: 10/06/19 15:45 Dose: 0 mls/hr Documented by: [id number] Admin: 10/06/19 14:37 Dose: 100 mls/hr Documented by: [id number] Potassium Chloride/Sodium Chloride (Normal Saline W/20 Meq Kcl) 20 meq in 1,000 mls @ 75 mls/hr IV .[id number] PHANI Stop: 11/05/19 18:44 Last Admin: 10/08/19 11:51 Dose: Not Given Documented by: [id number] Infusion: 10/08/19 11:06 Dose: 0 mls/hr Documented by: [id number] Admin: 10/07/19 20:50 Dose: 75 mls/hr Documented by: [id number] Infusion: 10/07/19 20:50 Dose: 75 mls/hr Documented by: [id number] Admin: 10/07/19 10:14 Dose: 75 mls/hr Documented by: [id number] Infusion: 10/07/19 09:00 Dose: 75 mls/hr Documented by: [id number] Admin: 10/06/19 19:40 Dose: 75 mls/hr Documented by: [id number] Doxycycline Hyclate 100 mg/ (Dextrose) 110 mls @ 55 mls/hr IV NOW ONE Stop: 10/06/19 20:29 Last Infusion: 10/06/19 21:27 Dose: 0 mls/hr Documented by: [id number] Admin: 10/06/19 19:40 Dose: 55 mls/hr Documented by: [id number] Ertapenem 1,000 mg/ Sodium (Chloride) 60 mls @ 100 mls/hr IV Q24H PHANI Stop: 10/13/19 19:59 Last Infusion: 10/06/19 22:12 Dose: 0 mls/hr Documented by: [id number] Admin: 10/06/19 21:27 Dose: 100 mls/hr Documented by: [id number] Doxycycline Hyclate 100 mg/ (Dextrose) 110 mls @ 50 mls/hr IV BID PHANI; Protocol Stop: 10/13/19 08:59 Last Infusion: 10/08/19 11:07 Dose: 0 mls/hr Documented by: [id number] Admin: 10/08/19 08:39 Dose: 50 mls/hr Documented by: [id number] Cosigned by: [id number] Infusion: 10/08/19 01:17 Dose: 0 mls/hr Documented by: [id number] Admin: 10/07/19 21:57 Dose: 50 mls/hr Documented by: [id number] Infusion: 10/07/19 10:01 Dose: 0 mls/hr Documented by: [id number] Admin: 10/07/19 07:49 Dose: 50 mls/hr Documented by: [id number] Imipenem/Cilastatin Sodium 500 (mg/ Dextrose) 110 mls @ 110 mls/hr IV Q6H PHANI; Protocol Stop: 10/14/19 08:29 Last Infusion: 10/08/19 04:17 Dose: 0 mls/hr Documented by: [id number] Admin: 10/08/19 03:01 Dose: 110 mls/hr Documented by: [id number] Infusion: 10/07/19 21:54 Dose: 0 mls/hr Documented by: [id number] Admin: 10/07/19 20:46 Dose: 110 mls/hr Documented by: [id number] Infusion: 10/07/19 15:44 Dose: 0 mls/hr Documented by: [id number] Admin: 10/07/19 14:44 Dose: 110 mls/hr Documented by: [id number] Infusion: 10/07/19 11:14 Dose: 0 mls/hr Documented by: [id number] Admin: 10/07/19 10:14 Dose: 110 mls/hr Documented by: [id number] Clindamycin Phosphate 600 mg/ (Dextrose) 54 mls @ 108 mls/hr IV Q8H PHANI; Protocol Stop: 10/15/19 08:59 Last Infusion: 10/08/19 11:28 Dose: 0 mls/hr Documented by: [id number] Admin: 10/08/19 09:55 Dose: 108 mls/hr Documented by: [id number] Ioversol (Optiray 320 125ml) 119 ml IV ONCE PRN PRN Reason: Interaction Checking Stop: 10/10/19 18:36 Last Admin: 10/06/19 18:38 Dose: 119 ml Documented by: [id number] Levalbuterol HCl (Xopenex 0.63 Mg/3 Ml Neb) 0.63 mg NEB Q6R PHANI Stop: 11/05/19 18:59 Last Admin: 10/08/19 07:14 Dose: 0.63 mg Documented by: [id number] Admin: 10/08/19 00:16 Dose: 0.63 mg Documented by: [id number] Admin: 10/07/19 18:17 Dose: 0.63 mg Documented by: [id number] Admin: 10/07/19 13:07 Dose: 0.63 mg Documented by: [id number] Admin: 10/07/19 06:57 Dose: 0.63 mg Documented by: [id number] Admin: 10/07/19 01:28 Dose: 0.63 mg Documented by: [id number] Admin: 10/06/19 20:15 Dose: 0.63 mg Documented by: [id number] Pantoprazole Sodium (Protonix) 40 mg PO NOW STA Stop: 10/06/19 16:14 Last Admin: 10/06/19 16:18 Dose: 40 mg Documented by: [id number] Pantoprazole Sodium (Protonix) 40 mg PO BID COUNTS INCLUDE 234 BEDS AT THE [facility] Stop: 11/05/19 20:59 Last Admin: 10/08/19 08:33 Dose: 40 mg Documented by: [id number] Cosigned by: [id number] Admin: 10/07/19 20:50 Dose: 40 mg Documented by: [id number] Admin: 10/07/19 07:44 Dose: 40 mg Documented by: [id number] Admin: 10/06/19 19:42 Dose: 40 mg Documented by: [id number] Potassium Chloride (Klor-Con M20) 20 meq PO NOW STA Stop: 10/06/19 16:29 Last Admin: 10/06/19 17:42 Dose: 20 meq Documented by: [id number] Potassium Chloride (Klor-Con M20) 40 meq PO NOW STA Stop: 10/08/19 10:57 Last Admin: 10/08/19 11:12 Dose: 40 meq Documented by: [id number] Sennosides (Senokot) 8.6 mg PO QAM COUNTS INCLUDE 234 BEDS AT THE [facility] Stop: 11/06/19 08:59 Last Admin: 10/08/19 08:33 Dose: 8.6 mg Documented by: [id number] Cosigned by: [id number] Admin: 10/07/19 07:45 Dose: 8.6 mg Documented by: [id number] Medical Decision Making Differential Diagnosis Differential diagnoses includes but is not limited to pneumonia, bronchitis, COPD/Asthma exacerbation, pneumothorax, pulmonary embolism, congestive heart failure, acute coronary syndrome Medical Records Attestation: I reviewed the patient's medical records. Home Medications Current Medication List: was personally reviewed by me Laboratory Data Attestation: I reviewed the patient's lab results. Result diagrams: 10/08/19 09:40 10/08/19 09:40 Lab Results 10/06/19 10/06/19 10/06/19 Range/Units 14:09 14:09 14:09 WBC 4.94 (4.8-10.8) K/uL RBC 4.20 (4.2-5.4) M/uL Hgb 12.5 (12.0-16.0) g/dL Hct 38.8 (37-47) % MCV 92.4 (80-100) fL MCH 29.8 (25-34) pg MCHC 32.2 (32-36) g/dL RDW Std Deviation 45.3 (36.4-46.3) fL RDW Coeff of [place] 13.5 (11.5-14.5) % Plt Count 112 L (130-400) K/uL MPV 10.7 H (7.4-10.4) fL Immature Gran % (Auto) 0.4 % Neut % (Auto) 79.0 % Lymph % (Auto) 9.9 % Whiteside % (Auto) 8.7 % Eos % (Auto) 1.6 % Baso % (Auto) 0.4 % Immature Gran # (Auto) 0.02 (0.00-0.02) K/uL Neut # (Auto) 3.90 (1.4-6.5) K/uL Lymph # (Auto) 0.49 L (1.2-3.4) K/uL [place] # (Auto) 0.43 (0.11-0.59) K/uL Eos # (Auto) 0.08 (0-0.5) K/uL Baso # (Auto) 0.02 (0-0.2) K/uL PT 11.0 (9.0-12.0) Seconds INR 1.1 (0.9-1.1) APTT 39.9 H (21.0-31.0) Seconds PTT Ratio 1.5 Sodium 136 (136-145) mmol/L Potassium 3.3 L (3.5-5.1) mmol/L Chloride 102 (98-107) mmol/L Carbon Dioxide 28 (21-32) mmol/L Anion Gap 6.0 (3-11) BUN 22 H (7-18) mg/dl Creatinine 0.74 (0.6-1.2) mg/dl Est Cr Clr Drug Dosing 76.6 ml/min Est GFR ( Amer) 102.8 Est GFR (Non-Af Amer) 88.7 BUN/Creatinine Ratio 30.2 H (10-20) Glucose 102 H (70-99) mg/dl Lactate (0.4-2.0) mmol/L Calcium 9.0 (8.5-10.1) mg/dl Total Bilirubin 1.3 H (0.2-1) mg/dl AST 12 L (15-37) U/L ALT 11 L (12-78) U/L Alkaline Phosphatase 85 (45-117) U/L Troponin I < 0.015 (0-0.045) ng/ml Total Protein 7.1 (6.4-8.2) gm/dl Albumin 2.6 L (3.4-5.0) gm/dl Globulin 4.5 H (2.5-4.0) gm/dl Albumin/Globulin Ratio 0.6 L (0.9-2) Influenza Type A (PCR) (Neg) Influenza Type B (PCR) (Neg) 10/06/19 10/06/19 Range/Units 14:09 14:09 WBC (4.8-10.8) K/uL RBC (4.2-5.4) M/uL Hgb (12.0-16.0) g/dL Hct (37-47) % MCV (80-100) fL MCH (25-34) pg MCHC (32-36) g/dL RDW Std Deviation (36.4-46.3) fL RDW Coeff of [place] (11.5-14.5) % Plt Count (130-400) K/uL MPV (7.4-10.4) fL Immature Gran % (Auto) % Neut % (Auto) % Lymph % (Auto) % Whiteside % (Auto) % Eos % (Auto) % Baso % (Auto) % Immature Gran # (Auto) (0.00-0.02) K/uL Neut # (Auto) (1.4-6.5) K/uL Lymph # (Auto) (1.2-3.4) K/uL Whiteside # (Auto) (0.11-0.59) K/uL Eos # (Auto) (0-0.5) K/uL Baso # (Auto) (0-0.2) K/uL PT (9.0-12.0) Seconds INR (0.9-1.1) APTT (21.0-31.0) Seconds PTT Ratio Sodium (136-145) mmol/L Potassium (3.5-5.1) mmol/L Chloride (98-107) mmol/L Carbon Dioxide (21-32) mmol/L Anion Gap (3-11) BUN (7-18) mg/dl Creatinine (0.6-1.2) mg/dl Est Cr Clr Drug Dosing ml/min Est GFR ( Amer) Est GFR (Non-Af Amer) BUN/Creatinine Ratio (10-20) Glucose (70-99) mg/dl Lactate 1.6 (0.4-2.0) mmol/L Calcium (8.5-10.1) mg/dl Total Bilirubin (0.2-1) mg/dl AST (15-37) U/L ALT (12-78) U/L Alkaline Phosphatase (45-117) U/L Troponin I (0-0.045) ng/ml Total Protein (6.4-8.2) gm/dl Albumin (3.4-5.0) gm/dl Globulin (2.5-4.0) gm/dl Albumin/Globulin Ratio (0.9-2) Influenza Type A (PCR) Neg for Influ A (Neg) Influenza Type B (PCR) Neg for Influ B (Neg) Imaging Data Radiologist's Impression: Radiology results as stated below per my review and the radiologist's interpretation: XR chest 1V portable CLINICAL HISTORY: SOB dyspnea COMPARISON STUDY: 10/12/2018 FINDINGS: Central catheter remains in the superior vena cava. Parenchymal infiltrate throughout the left lung base. Minimal infiltrative changes right base. The upper lungs are clear. IMPRESSION: Interval development of a left and to a lesser extent right basilar parenchymal infiltrates. ACT 112: Negative or not required by law. The above report was generated using voice recognition software. It may contain grammatical, syntax or spelling errors. Electronically signed by: Sekou Pinto M.D. 10/06/2019 2:01 PM ECG Data Attestation: I personally reviewed and interpreted this ECG as follows: Indication: + SOB/dyspnea Rate (beats per minute): 101 Rhythm: + sinus tachycardia ECG [place]: + Normal ECG ST segments: no ST depression and no ST elevation ECG Findings: + Other (P wave inversion in inferior and lateral leads); no PACs and no PVCs Blood Pressure Blood Pressure Findings: Normal blood pressure Blood Pressure Disposition: further management by hospitalist MDM Narrative Continuous Cardiac Monitoring: An order was placed for continuous cardiac monitoring. The monitor shows a rate of 99 with a sinus rhythm This patient was evaluated and appeared to be in no significant distress. IV access was obtained and laboratory work was drawn. Patient was placed on the monitoring engineer found to be in a sinus rhythm. Patient is noted to be hypoxic on room air. She has been placed on nasal cannula oxygen and given a DuoNeb treatment. Chest x-ray was obtained and reveals interval development of left greater than right parenchymal infiltrates. Patient does have a history of esophageal carcinoma with a pull out. She has a mild leukopenia and is afe brile. Blood cultures have been obtained. The patient was given 1 g of IV ceftriaxone. Given the patient's hypoxia and comorbidities, she will be evaluated by the hospitalist service for further management. Patient is aware of the plan and agrees. Impression & Plan Hypoxia, Pneumonia Discharge Plan Visit Data *Final* Discharge Date/Time: 10/06/19 17:30 Chief Complaint: Shortness of Breath/Dyspnea Stated Complaint: SOB,COUGHING ED Provider: Vinita Goodwin Discharge Problem: Hypoxia, Pneumonia Patient Disposition: Admitted As Inpatient Discharge Instructions Interventions: ED Discharge Assessment Last Done: 10/06/19 17:30 Discharge Problem: Pneumonia Qualifiers: Pneumonia type: due to unspecified organism Laterality: bilateral Lung location: unspecified part of lung Qualified Code(s): J18.9 - Pneumonia, unspecified organism The scribe's documentation has been prepared under my direction and personally reviewed by me in its entirety. I confirm that the note above accurately reflects all work, treatment, procedures, and medical decision making performed by me.
[2019-10-06] MEDS ORDERED: PANTOprazole 40 MG TAB PO STA (16:13)
[2019-10-06] MEDS ORDERED: POTASSIUM CHLORIDE 20 MEQ TABCR PO STA (16:28)
--- NOTE | 2019-10-06 17:08 | History & Physical Report ---
Date of Service October 06, 2019 Assessment & Plan (1) Hypoxia: (2) Pneumonia: This is a 59-year-old female with significant PMH of esophageal adeno CA status post chemoradiation along with esophagectomy, depression, GERD, history of gout, chronic wound to right rib cage secondary to chronic osteomyelitis status post right rib resection with wound VAC placement presents to ED secondary to shortness of breath and cough x3 days. In ED she remained hemodynamically stable, afebrile but did require O2 supplementation at 4 L. Lab work noted WBC 4.94, H&H normal, platelet 112, K3.3, BUN 22, creatinine 0.74, BUN/creatinine ratio 30.2, glucose 102, lactate 1.6, influenza negative. Her chest x-ray concerning for interval development of left and to a lesser extent right basilar parenchymal infiltrates. In ED she received 1 L IVF, oral pantoprazole and 1g IV rocephin. She was ordered 500mg IV azithromycin and 20meq KCL for potassium supplementation. She does not meet SIRS/SEPSIS criteria per current CMS guidelines Dx: concern for bibasilar PNA with possible aspiration component admit to PCU obtain CTA of chest to r/o PE given hx of malignancy treat with IV Invanz and doxycycline to CAP +/- aspiration IVF 75cc/hr + 20meq KCL incentive spirometry xopenex neb tx QID robitussin prn (3) Chronic osteomyelitis: (4) Surgical wound, non healing: Follows Dr. Soto thoracic and cardiac surgery s/p R rib excision and bx +chronic osteomyelitis, ecoli s/p wound vac Follows [facility] wound care, wound consult placed pt candidate for hyperbaric therapy (5) Thrombocytopenia: plt ct stable 112 monitor (6) Esophageal cancer: [facility] Ambrocio Lower esophageal adenoca s/p esophagectomy, chemo and xrt, completed in 09/2018 currently in remission (7) GERD (gastroesophageal reflux disease): continue PPI (8) DVT prophylaxis: Lovenox monitor plt ct, 112 today Disposition: admit to PCU Follow up: PCP Dr. Sampson upon discharge Pt was seen and examined in collaboration with Dr. Weiss, please see addendum History of Present Illness Chief Complaint: SOB with exertion and cough x 3 days. Primary Care Provider: Josiah Sampson MD This is a 59-year-old female with significant PMH of esophageal adeno CA status post chemoradiation along with esophagectomy, depression, GERD, history of gout, chronic wound to right rib cage secondary to chronic osteomyelitis status post right rib resection with wound VAC placement presents to ED secondary to shortness of breath and cough x3 days. Symptoms started approximately on Wednesday in which she developed sinus congestion, rhinorrhea, headache, dry cough and shortness breath with exertion. Overall poor p.o. intake for the past 3 days. She has felt feverish but no documented fever. Further elicits to chills and sweats. Denies lightheadedness, dizziness, syncope, chest pain, palpitations, hemoptysis, abdominal pain, change in bowel or bladder habits. She has a occassional nauseous and few episodes of mucousy emesis. Denies hematemesis. Due to esophagectomy she does occasionally get GERD in which she feels she may have aspirated GERD components Wednesday morning leading to respiratory symptoms. She denies prior history of aspiration pneumonia or pneumonia. She did receive her flu vaccine. No sick contacts. She has been in and out of hospital and rehab with who unfortunately approximately 2 weeks ago after prolonged hospitalization and rehab stay. She is taking OTC Tylenol with minimal relief. She was seen and evaluated by PCP today and referred to ED secondary to hypoxia and tachycardia with 2 min walk test. Of significance she continues to follow with thoracic surgery due to chronic R anterior chest wall wound. She has hx of chronic osteomyelitis to R rib which was resected. Had debridement this past week with wound vac placement. [place] [facility] [place] In ED she remained hemodynamically stable, afebrile but did require O2 supplementation at 4 L. Lab work noted WBC 4.94, H&H normal, platelet 112, K3.3, BUN 22, creatinine 0.74, BUN/creatinine ratio 30.2, glucose 102, lactate 1.6, influenza negative. Her chest x-ray concerning for interval development of left and to a lesser extent right basilar parenchymal infiltrates. In ED she received 1 L IVF, oral pantoprazole and 1g IV rocephin. She was ordered 500mg IV azithromycin and 20meq KCL for potassium supplementation. Allergies Allergy/AdvReac Type Severity Reaction Status Date / Time Penicillins Allergy Intermediate Rash Verified 10/06/19 16:07 Sulfa (Sulfonamide AdvReac Severe Rash Verified 10/06/19 16:07 Antibiotics) Home Medications Home Medications Medication Instructions Recorded Confirmed Type sennosides 8.6 mg tablet 8.6 mg PO QAM tab 12/08/18 10/06/19 History lorazepam [Ativan] 0.5 mg PO TID PRN 10/06/19 10/06/19 History omeprazole 40 mg capsule,delayed 40 mg PO BID 10/06/19 10/06/19 History release tramadol [Ultram] 50 mg PO Q6H PRN 10/06/19 10/06/19 History Past Med/Surg History Medical History (Updated 10/06/19 @ 17:27 by Chary Huerta PA-C) Adenocarcinoma of esophagus (02/22/18) "History of reflux esophagitis Development of weight loss and dysphagia Status post upper GI endoscopy and biopsy February 22, 2018 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 Radiation therapy completed May 12, 2018. She received 5040 cGy. Esophageal cancer (Chronic) GERD (gastroesophageal reflux disease) Surgical History H/O left knee surgery History of esophageal surgery (Acute) Family History (Updated 10/06/19 @ 17:22 by Chary Huerta PA-C) Father Esophageal cancer Social History Preferred Language: Kyrgyz Communication Ability: Effective Windmill Technician Required: No Beliefs That Will Affect Care: None marital status: Current Living Situation: Family Other Information That Helps Us Care for You: No Feels Safe at Home: Yes Safety Concerns: Feels Safe At This Time Smoking Status: Former smoker Tobacco Type: cigarettes ; Second Hand Exposure: No ; Hx Alcohol Use: No Hx Substance Use: No Review of Systems Review of Systems: All systems reviewed & are unremarkable except as noted in HPI & below Physical Exam Physical Exam: Constitutional: WD/WN, vitals as above, NAD, sitting up in bed, pleasant, conversing easily Head: Normocephalic, Atraumatic Eyes: PERRL, conjunctivae normal, anicteric sclerae ENMT: external ear and nose normal, oropharynx normal Neck: trachea midline, no thyromegaly normal visual inspection Respiratory: normal respiratory effort, lungs clear to auscultation, with bibasilar crackles L > R, no wheeze, or rhonchi. Normal insp/exp effort, no accessory muscle use on 4L O2 via NC Cardiovascular: RRR, no murmur, no edema Vessels: no JVD or carotid bruit Chest:+ Wound Vac to R anterior interiginous area underneath R breast, R ACW Port a cath in place Abdomen: normal bowel sounds, soft, nontender, no hepatosplenomegaly Musculoskeletal: no cyanosis or clubbing, extremities motor strength 5/5 Skin: no rashes, warm and dry normal turgor Neurologic: PERRL, EOMI, accommodation nl, no face palsy, no dysarthria CN's II-XI intact bilaterally and moves all extremities Psychiatric: A+Ox3, euthymic affect Lymphatic: no cervical or axillary lymphadenopathy : deferred Results & Data Vital Signs (Past 12 Hours) Vital Signs Temp Pulse Pulse Resp BP BP Pulse Ox 10/06/19 15:42 98 H 18 110/70 96 10/06/19 14:42 20 94 10/06/19 13:29 87 L 10/06/19 13:28 87 L 10/06/19 12:48 36.8 C 125 H 22 108/78 88 L Laboratory Results Short CBC 10/06/19 Range/Units 14:09 WBC 4.94 (4.8-10.8) K/uL Hgb 12.5 (12.0-16.0) g/dL Hct 38.8 (37-47) % Plt Count 112 L (130-400) K/uL BMP 10/06/19 14:09 Sodium 136 Potassium 3.3 L Chloride 102 Carbon Dioxide 28 BUN 22 H Creatinine 0.74 Glucose 102 H Calcium 9.0 Cardiac Enzymes 10/06/19 Range/Units 14:09 Troponin I < 0.015 (0-0.045) ng/ml Liver Function 10/06/19 Range/Units 14:09 Total Bilirubin 1.3 H (0.2-1) mg/dl AST 12 L (15-37) U/L ALT 11 L (12-78) U/L Alkaline Phosphatase 85 (45-117) U/L Albumin 2.6 L (3.4-5.0) gm/dl Diagnostic Findings CXR: IMPRESSION: Interval development of a left and to a lesser extent right basilar parenchymal infiltrates. Medications Administered Discontinued Medications Albuterol (Duoneb) 3 ml NEB NOW STA Stop: 10/06/19 13:44 Last Admin: 10/06/19 14:41 Dose: 3 ml Documented by: [id number] Sodium Chloride (Nss 1000ml) 1,000 mls @ 999 mls/hr IV .Q1H1M ONE Stop: 10/06/19 14:41 Last Infusion: 10/06/19 15:45 Dose: 0 mls/hr Documented by: [id number] Admin: 10/06/19 14:37 Dose: 999 mls/hr Documented by: [id number] Ceftriaxone Sodium (Rocephin) 1,000 mg in 50 mls @ 100 mls/hr IV NOW STA Stop: 10/06/19 14:10 Last Infusion: 10/06/19 15:45 Dose: 0 mls/hr Documented by: [id number] Admin: 10/06/19 14:37 Dose: 100 mls/hr Documented by: [id number] Pantoprazole Sodium (Protonix) 40 mg PO NOW STA Stop: 10/06/19 16:14 Last Admin: 10/06/19 16:18 Dose: 40 mg Documented by: [id number] ECG Rate (beats per minute): 101 Rhythm: sinus tachycardia Findings: + nonspecific-ST abn Code Status & VTE Plan Code Status Full Code VTE Prophylaxis Plan VTE Prophylaxis will be ordered: Yes Supervising Physician Co-Signing Physician Notes Care coordinated with Chary Huerta PA-C. Agree with above note. Patient seen and examined. Please refer to her notes for full details. Vital signs reviewed. Physical exam: General exam: Alert and oriented. Not in acute distress. CVS: S1 and S2 heard, regular rate and rhythm, no murmurs. RS: Clear to auscultation, no wheezing or crackles. ABD: Soft, bowel sounds present, nontender, no distention. INSTRUMENT REPAIRER HELPER: Nonfocal. EXT: No edema, no erythema. Labs: Reviewed. Assessment and plan: 59f with hx of oesophageal cancer s/p esophagectomy comes with cough and sob and subjective fevers. Had GERd symptoms and thinks she might have aspirated. CTA chest no PE but shows possible aspiration pneumonitis. Aspiration pneumonitis sob and cough started on iv invanz and doxy(to cover atypicals) Fluids follow the response Oesophageal cancer s/p esophagectomy, chemoradiation in remission f/u with heme/oco Other diagnosis and plan of care as per []. Jeb villalta MD. (1) Surgical wound, non healing Encounter type: initial encounter Qualified Code(s): T81.89XA - Other complications of procedures, not elsewhere classified, initial encounter (2) Pneumonia Laterality: bilateral Lung location: unspecified part of lung Pneumonia type: due to unspecified organism Qualified Code(s): J18.9 - Pneumonia, unspecified organism
[2019-10-06] MEDS ORDERED: AZITHROMYCIN 500 MG in DEXTROSE 5% 250 ML IV ONE (18:15)
[2019-10-06] MEDS ORDERED: DOXYCYCLINE HYCLATE 100 MG in DEXTROSE 5% 100 ML IV ONE (18:30)
[2019-10-06] MEDS ORDERED: OPTIRAY 320 125ml IV PRN (18:37)
--- NOTE | 2019-10-06 18:38 | Electrocardiogram Report ---
Test Reason : Blood Pressure : / mmHG Vent. Rate : 101 BPM Atrial Rate : 101 BPM P-R Int : 128 ms QRS Dur : 082 ms QT Int : 314 ms P-R-T Axes : -68 012 080 degrees QTc Int : 407 ms Unusual P axis and short OK, probable junctional tachycardia vs ectopic atrial rhythm Nonspecific T wave abnormality Abnormal ECG When compared with ECG of 14-OCT-2018 06:15, Junctional rhythm has replaced Sinus rhythm Vent. rate has increased BY 37 BPM Nonspecific T wave abnormality now evident in Lateral leads Confirmed by Bruce Dumont ([id number]) on 10/06/2019 6:38:16 PM Referred By: Confirmed By:Anirudh Dumont
[2019-10-06] MEDS ORDERED: TRAMADOL HCL 50 MG TABLET PO PRN (18:50)
[2019-10-06] MEDS ORDERED: ALUMINUM/MAGNESIUM SUSP 30 ML UDC PO PRN (18:50)
[2019-10-06] MEDS ORDERED: MAGNESIUM HYDROXIDE SUSP 30 ML UDC PO PRN (18:50)
[2019-10-06] MEDS ORDERED: GUAIFENESIN/DEXTROM SYRUP 100MG/10MG 5ML UDC PO PRN (18:50)
[2019-10-06] MEDS ORDERED: POLYETHYLENE (MIRALAX) 17 GM PACK PO PRN (18:50)
[2019-10-06] MEDS ORDERED: ACETAMINOPHEN 325 MG TAB PO PRN (18:50)
[2019-10-06] MEDS ORDERED: LORazepam 0.5 MG TAB PO PRN (18:50)
[2019-10-06] MEDS ORDERED: ONDANSETRON INJ 2 MG/ML 2 ML VIAL IV PRN (18:50)
--- NOTE | 2019-10-06 19:17 | CT Scan Report ---
CHEST CTA for PULMONARY ARTERIES CT DOSE: 447.29 mGycm HISTORY: Shortness of breath. Pulmonary embolus. TECHNIQUE: Multiaxial CT images of the chest were performed following the intravenous administration of contrast to evaluate the pulmonary arteries. Maximal intensity projection images were also obtaine d. A dose lowering technique was utilized adhering to the principles of ALARA. COMPARISON STUDY: Chest CTA 07/21/2018. FINDINGS: Normal caliber thoracic aorta with no evidence for dissection. The heart is normal in size. Right jugular Port-A-Cath terminates at the SVC. Trace right pleural effusion. A 1.3 cm right thyroi d nodule. This remains unchanged. Focal soft tissue thickening within the right anterior chest wall h as improved. This favors old postoperative change. The visualized liver, spleen, and adrenal glands a re unremarkable. A few mildly enlarged left hilar lymph nodes. Mediastinal lymph nodes measure subcen timeter in short axis diameter and remains stable. No right hilar lymphadenopathy. No suspicious lyti c or blastic osseous lesions. No filling defects within the pulmonary arteries to suggest pulmonary e mbolus. Postoperative changes consistent with prior esophagectomy and gastric pull-up. No pneumothora x. Moderate emphysema. Dense consolidation within the majority of the left lower lobe as well as the base of the right lower lobe. A single enlarged right middle lobe bronchial lymph node best seen on i mage 121 which measures 11 x 7 mm. Scattered subcentimeter indeterminate pulmonary nodules seen on th e prior study are not significantly changed.. There are multiple new scattered nodular densities seen within the lung bases which appear to be secondary to the pneumonia. These measure up to 1 cm as see n within the base of the left lower lobe on image 51. IMPRESSION: 1. No evidence for pulmonary embolus. 2. Dense consolidation involving the majority of the left lower lobe and the base of the right middle lobe. This is consistent with a pneumonia is likely secondary to aspiration. 3. Prior esophagectomy with gastric pull-up. 4. Emphysema. 5. Trace right pleural effusion. 6. Mildly enlarged left hilar and right middle lobe bronchial lymph nodes. These are likely reactive. These bear watching future examinations to ensure resolution. 7. Scattered subcentimeter indeterminate pulmonary nodules seen on the prior study are not significan tly changed. There are multiple new scattered nodular densities seen within the lung bases which appe ar to be secondary to the pneumonia. [address] follow-up recommended to ensure resolution of t he additional nodules. ACT 112: Negative or not required by law. Electronically signed by: Tyrone Lang M.D. 10/06/2019 7:16 PM
[2019-10-06] MEDS: NSS + 20MEQ KCL 20 MEQ/1,000 ML BAG IV SCH (19:40)
[2019-10-06] MEDS: ENOXAPARIN INJ 40 MG/0.4 ML SYR SQ SCH (19:41)
[2019-10-06] MEDS: PANTOprazole 40 MG TAB PO SCH (19:42)
[2019-10-06] MEDS ORDERED: ERTAPENEM SODIUM 1,000 MG in SODIUM CHLORIDE 0.9% 50 ML IV SCH (20:00)
[2019-10-06] MEDS: LEVALBUTEROL HCL 0.63 MG/3 ML NEB NEB SCH (20:15)
[2019-10-06] MEDS ORDERED: HEPARIN 100 UNIT/ML 5ML FLUSH FLUSH PRN (23:18)
[2019-10-07] MEDS: LEVALBUTEROL HCL 0.63 MG/3 ML NEB NEB SCH ×4 (01:28→18:17)
[2019-10-07 05:55] LABS: Hematocrit (blood only) 33.3 % (37-47); Hemoglobin 10.6 g/dL (12.0-16.0); Mean Corpuscular Hemoglobin 29.6 pg (25-34); Mean Corpuscular Hgb Conc 31.8 g/dL (32-36); RDW Coefficient of Variation 13.5 % (11.5-14.5); RDW Standard Deviation 46.3 fL (36.4-46.3); Red Blood Count 3.58 M/uL (4.2-5.4); White Blood Count 3.12 K/uL (4.8-10.8)
[2019-10-07 06:01] LABS: Mean Platelet Volume 10.1 fL (7.4-10.4); Platelet Count 87 K/uL (130-400)
[2019-10-07 06:23] LABS: Basophils # (auto) 0.01 K/uL (0-0.2); Basophils % (auto) 0.3 %; Dohle Bodies Occasional; Eosinophils # (auto) 0.12 K/uL (0-0.5); Eosinophils % (auto) 3.8 %; Immature Granulocytes # (auto) 0.01 K/uL (0.00-0.02); Immature Granulocytes % (auto) 0.3 %; Lymphocytes # (auto) 0.52 K/uL (1.2-3.4); Lymphocytes % (auto) 16.7 %; Monocytes # (auto) 0.34 K/uL (0.11-0.59); Monocytes % (auto) 10.9 %; Neutrophils # (auto) 2.12 K/uL (1.4-6.5)
[2019-10-07 06:27] LABS: BUN Creatinine Ratio 25.2 (10-20); Calcium 8.5 mg/dl (8.5-10.1); Creatinine Clr Calc Pharmacy 96.1 ml/min; Est GFR (African American) 116.3; Est GFR (Non-African American) 100.3; Potassium 3.4 mmol/L (3.5-5.1)
[2019-10-07] MEDS: PANTOprazole 40 MG TAB PO SCH ×2 (07:44→20:50)
[2019-10-07] MEDS: SENNA 8.6 MG TAB PO SCH (07:45)
[2019-10-07] MEDS: DOXYCYCLINE HYCLATE 100 MG in DEXTROSE 5% 100 ML IV SCH ×2 (07:49→21:57)
[2019-10-07] MEDS ORDERED: IMIPENEM/CILASTATIN CONSULT ACTIVE PRN (08:15)
--- NOTE | 2019-10-07 10:07 | Hospitalist Progress Note ---
Date of Service October 07, 2019 Assessment & Plan (1) Acute respiratory failure with hypoxia: (2) Pneumonia: (1) Hypoxia: (2) Pneumonia, possible aspiration versus community-acquired Improved today, off oxygen Cultures pending Continue with imipenem plus doxycycline, nebs Speech therapy evaluation (3) Chronic osteomyelitis: (4) Surgical wound, non healing: Per admitting service notes Follows Dr. Soto thoracic and cardiac surgery s/p R rib excision and bx +chronic osteomyelitis, ecoli s/p wound vac Follows [facility] wound care, wound consult placed pt candidate for hyperbaric therapy (5) Thrombocytopenia: plt ct stable 112 Today 87, no signs of bleeding, monitor (6) Esophageal cancer: Per admitting service notes Follows [facility] oncology Dr. Ambrocio Lower esophageal adenoca s/p esophagectomy, chemo and xrt, completed in 09/2018 currently in remission (7) GERD (gastroesophageal reflux disease): continue PPI (8) DVT prophylaxis: Lovenox monitor plt ct, 7 Disposition: admit to PCU Admission and Anticipated Discharge Date Admission Date: October 06, 2019 Subjective Follow-up for aspiration pneumonia, hypoxic respiratory failure Seen sitting up in bedside chair, comfortable, not in distress States she feels improved today compared to yesterday Off oxygen via nasal cannula States breathing is improved Less cough, sputum production No chest pain Denies other symptoms Review of Systems Review of Systems: All systems reviewed & are unremarkable except as noted in HPI & below Physical Exam Physical Exam: General- oriented x 3, not in distress, speaks in sentences with no effort or accessory muscle use Head- atraumatic Eyes- PERRL, EOMI, anicteric ENT- oropharynx clear Neck- supple, no JVD, no adenopathy, no thyromegaly; carotids +2/2, no bruits appreciated Lungs-positive decreased breath sounds on the left mid to base, and rhonchi in the right base, no wheeze Heart- normal rate, regular rhythm; no murmur, no gallop, no rub appreciated Abdomen- normal bowel sounds, nondistended, soft, nontender, no masses or hepatosplenomegaly Extremities- no pretibial edema, no calf tenderness; peripheral pulses intact Neuro- alert, oriented x 3; CN 2-12 grossly intact; motor 5/5 bilaterally;sensation 100% on all extremities; no other gross focal neurologic deficits Skin- warm & dry Results & Data ([place]) Vital Signs (Past 12 Hours) Vital Signs Temp Pulse Pulse Pulse Resp BP Pulse Ox 10/07/19 08:00 82 10/07/19 07:15 37.0 C 90 18 98/62 L 90 10/07/19 06:57 86 19 95 10/07/19 04:00 36.4 C L 78 16 104/65 93 10/07/19 01:30 92 H 14 95 10/07/19 00:00 87 10/06/19 23:21 37.8 C H 95 H 16 119/74 93 Laboratory Results Laboratory Results - last 24 hr 10/07/19 10/07/19 10/07/19 05:27 05:27 11:10 WBC 3.12 L RBC 3.58 L Hgb 10.6 L Hct 33.3 L MCV 93.0 MCH 29.6 MCHC 31.8 L RDW Std Deviation 46.3 RDW Coeff of [place] 13.5 Plt Count 87 L MPV 10.1 Immature Gran % (Auto) 0.3 Neut % (Auto) 68.0 Lymph % (Auto) 16.7 [place] % (Auto) 10.9 Eos % (Auto) 3.8 Baso % (Auto) 0.3 Immature Gran # (Auto) 0.01 Neut # (Auto) 2.12 Lymph # (Auto) 0.52 L [place] # (Auto) 0.34 Eos # (Auto) 0.12 Baso # (Auto) 0.01 Dohle Bodies Occasional Sodium 140 Potassium 3.4 L Chloride 107 Carbon Dioxide 26 Anion Gap 7.0 BUN 15 Creatinine 0.59 L Est Cr Clr Drug Dosing 96.1 Est GFR ( Amer) 116.3 Est GFR (Non-Af Amer) 100.3 BUN/Creatinine Ratio 25.2 H Glucose 82 Calcium 8.5 Nasal Screen MRSA (PCR) Negative
[2019-10-07] MEDS: NSS + 20MEQ KCL 20 MEQ/1,000 ML BAG IV SCH ×2 (10:14→20:50)
[2019-10-07] MEDS: IMIPENEM/CILASTATIN SODIUM 500 MG in DEXTROSE 5% 100 ML IV SCH ×3 (10:14→20:46)
[2019-10-07] MEDS: ENOXAPARIN INJ 40 MG/0.4 ML SYR SQ SCH (20:50)
[2019-10-08] MEDS: LEVALBUTEROL HCL 0.63 MG/3 ML NEB NEB SCH ×2 (00:16→07:14)
[2019-10-08] MEDS: IMIPENEM/CILASTATIN SODIUM 500 MG in DEXTROSE 5% 100 ML IV SCH (03:01)
[2019-10-08] MEDS: PANTOprazole 40 MG TAB PO SCH (08:33)
[2019-10-08] MEDS: SENNA 8.6 MG TAB PO SCH (08:33)
[2019-10-08] MEDS ORDERED: CLINDAMYCIN CONSULT ACTIVE PRN (08:34)
[2019-10-08] MEDS: DOXYCYCLINE HYCLATE 100 MG in DEXTROSE 5% 100 ML IV SCH (08:39)
[2019-10-08] MEDS ORDERED: CLINDAMYCIN 600 MG in DEXTROSE 5% 50 ML IV SCH (09:00)
[2019-10-08 09:57] LABS: Hematocrit (blood only) 34.4 % (37-47); Hemoglobin 11.2 g/dL (12.0-16.0); Mean Corpuscular Hemoglobin 30.1 pg (25-34); Mean Corpuscular Hgb Conc 32.6 g/dL (32-36); Mean Corpuscular Volume 92.5 fL (80-100); RDW Coefficient of Variation 13.4 % (11.5-14.5); RDW Standard Deviation 45.5 fL (36.4-46.3); Red Blood Count 3.72 M/uL (4.2-5.4); White Blood Count 3.61 K/uL (4.8-10.8)
[2019-10-08 10:39] LABS: Basophils # (auto) 0.01 K/uL (0-0.2); Basophils % (auto) 0.3 %; Eosinophils # (auto) 0.15 K/uL (0-0.5); Eosinophils % (auto) 4.2 %; Immature Granulocytes # (auto) 0.02 K/uL (0.00-0.02); Immature Granulocytes % (auto) 0.6 %; Lymphocytes # (auto) 0.56 K/uL (1.2-3.4); Lymphocytes % (auto) 15.5 %; Mean Platelet Volume 10.1 fL (7.4-10.4); Monocytes # (auto) 0.34 K/uL (0.11-0.59); Monocytes % (auto) 9.4 %; Neutrophils # (auto) 2.53 K/uL (1.4-6.5); Platelet Count 95 K/uL (130-400); Platelet Estimate Decreased (Normal)
--- NOTE | 2019-10-08 10:39 | Hospitalist Progress Note ---
Date of Service October 08, 2019 Assessment & Plan (1) Acute respiratory failure with hypoxia: (2) Pneumonia: (1) Hypoxia: (2) Pneumonia, possible aspiration versus community-acquired clinically much improved Blood Cultures pending: will follow up given imipenem plus doxycycline, nebs Speech therapy evaluation: instructions given transition to Clindamycin x 10 days, Doxycycline x 7 days PRN albuterol inhaler ff up with PCP in 1 week (3) Chronic osteomyelitis: (4) Surgical wound, non healing: Per admitting service notes Follows Dr. Soto thoracic and cardiac surgery s/p R rib excision and bx +chronic osteomyelitis, ecoli s/p wound vac Follows [facility] wound care, wound consult placed pt candidate for hyperbaric therapy (5) Thrombocytopenia: Plt 87--> 95k monitor as outpatient repeat CBC in 1 week (6) Esophageal cancer: Per admitting service notes Follows [facility] oncology Dr. Ambrocio Lower esophageal adenoca s/p esophagectomy, chemo and xrt, completed in 09/2018 currently in remission (7) GERD (gastroesophageal reflux disease): continue PPI (8) DVT prophylaxis: Lovenox given d/c home ff up with PCP in 1 week Admission and Anticipated Discharge Date Admission Date: October 06, 2019 Subjective ff up for hypoxia, aspiration pneumonia seen resting in bedside chair, comfortable, alert, in good spirits states she feels much better overall denies dyspnea, less cough and sputum no fever/chills denies other symptoms states she is ready and would like to be discharged today Review of Systems Review of Systems: All systems reviewed & are unremarkable except as noted in HPI & below Physical Exam Physical Exam: General- oriented x 3, not in distress, speaks in sentences with no effort or accessory muscle use Eyes- anicteric Neck- no JVD Lungs- (+) crackles on the left base, clear on the right no wheezing Heart- normal rate, regular rhythm; no murmurs Abdomen- normal bowel sounds, nondistended, soft, nontender Extremities- no pretibial edema, no calf tenderness Neuro- alert, oriented x 3; no gross focal neurologic deficits Skin- warm & dry Results & Data ([facility]) Vital Signs (Past 12 Hours) Vital Signs Temp Pulse Pulse Resp BP Pulse Ox 10/08/19 07:41 37.0 C 85 16 107/69 90 10/08/19 07:17 79 16 95 10/08/19 03:40 36.7 C 80 16 106/67 92 10/08/19 00:16 70 16 94 10/07/19 23:13 37.1 C 70 16 106/68 94 10/07/19 23:04 83 Laboratory Results Laboratory Results - last 24 hr 10/07/19 10/08/19 10/08/19 11:10 09:40 09:40 WBC 3.61 L RBC 3.72 L Hgb 11.2 L Hct 34.4 L MCV 92.5 MCH 30.1 MCHC 32.6 RDW Std Deviation 45.5 RDW Coeff of [place] 13.4 Plt Count 95 L MPV 10.1 Immature Gran % (Auto) 0.6 Neut % (Auto) 70.0 Lymph % (Auto) 15.5 [place] % (Auto) 9.4 Eos % (Auto) 4.2 Baso % (Auto) 0.3 Immature Gran # (Auto) 0.02 Neut # (Auto) 2.53 Lymph # (Auto) 0.56 L [place] # (Auto) 0.34 Eos # (Auto) 0.15 Baso # (Auto) 0.01 Platelet Estimate Decreased L Sodium Pending Potassium Pending Chloride Pending Carbon Dioxide Pending Anion Gap Pending BUN Pending Creatinine Pending Est Cr Clr Drug Dosing Pending Est GFR ( Amer) Pending Est GFR (Non-Af Amer) Pending BUN/Creatinine Ratio Pending Glucose Pending Calcium Pending Nasal Screen MRSA (PCR) Negative
[2019-10-08 10:44] LABS: BUN Creatinine Ratio 12.8 (10-20); Calcium 8.7 mg/dl (8.5-10.1); Creatinine Clr Calc Pharmacy 94.5 ml/min; Est GFR (African American) 112.6; Est GFR (Non-African American) 97.2; Potassium 3.2 mmol/L (3.5-5.1)
--- NOTE | 2019-10-08 10:50 | Discharge Summary ---
Date of Service October 08, 2019 Admission HPI Per Admitting Provider This is a 59-year-old female with significant PMH of esophageal adeno CA status post chemoradiation along with esophagectomy, depression, GERD, history of gout, chronic wound to right rib cage secondary to chronic osteomyelitis status post right rib resection with wound VAC placement presents to ED secondary to shortness of breath and cough x3 days. Symptoms started approximately on Wednesday in which she developed sinus congestion, rhinorrhea, headache, dry cough and shortness breath with exertion. Overall poor p.o. intake for the past 3 days. She has felt feverish but no documented fever. Further elicits to chills and sweats. Denies lightheadedness, dizziness, syncope, chest pain, palpitations, hemoptysis, abdominal pain, change in bowel or bladder habits. She has a occassional nauseous and few episodes of mucousy emesis. Denies hematemesis. Due to esophagectomy she does occasionally get GERD in which she feels she may have aspirated GERD components Wednesday morning leading to respiratory symptoms. She denies prior history of aspiration pneumonia or pneumonia. She did receive her flu vaccine. No sick contacts. She has been in and out of hospital and rehab with who unfortunately approximately 2 weeks ago after prolonged hospitalization and rehab stay. She is taking OTC Tylenol with minimal relief. She was seen and evaluated by PCP today and referred to ED secondary to hypoxia and tachycardia with 2 min walk test. Of significance she continues to follow with thoracic surgery due to chronic R anterior chest wall wound. She has hx of chronic osteomyelitis to R rib which was resected. Had debridement this past week with wound vac placement. Follows with [facility] wound care. In ED she remained hemodynamically stable, afebrile but did require O2 supplementation at 4 L. Lab work noted WBC 4.94, H&H normal, platelet 112, K3.3, BUN 22, creatinine 0.74, BUN/creatinine ratio 30.2, glucose 102, lactate 1.6, influenza negative. Her chest x-ray concerning for interval development of left and to a lesser extent right basilar parenchymal infiltrates. In ED she received 1 L IVF, oral pantoprazole and 1g IV rocephin. She was ordered 500mg IV azithromycin and 20meq KCL for potassium supplementation. Admission Exam Per Admitting Provider Constitutional: WD/WN, vitals as above, NAD, sitting up in bed, pleasant, conversing easily Head: Normocephalic, Atraumatic Eyes: PERRL, conjunctivae normal, anicteric sclerae ENMT: external ear and nose normal, oropharynx normal Neck: trachea midline, no thyromegaly normal visual inspection Respiratory: normal respiratory effort, lungs clear to auscultation, with bibasilar crackles L > R, no wheeze, or rhonchi. Normal insp/exp effort, no accessory muscle use on 4L O2 via NC Cardiovascular: RRR, no murmur, no edema Vessels: no JVD or carotid bruit Chest:+ Wound Vac to R anterior interiginous area underneath R breast, R ACW Port a cath in place Abdomen: normal bowel sounds, soft, nontender, no hepatosplenomegaly Musculoskeletal: no cyanosis or clubbing, extremities motor strength 5/5 Skin: no rashes, warm and dry normal turgor Neurologic: PERRL, EOMI, accommodation nl, no face palsy, no dysarthria CN's II-XI intact bilaterally and moves all extremities Psychiatric: A+Ox3, euthymic affect Lymphatic: no cervical or axillary lymphadenopathy : deferred Principal Diagnosis PNEUMONIA, LIKELY ASPIRATION RELATED Discharge Exam General- oriented x 3, not in distress, speaks in sentences with no effort or accessory muscle use Eyes- anicteric Neck- no JVD Lungs- (+) crackles on the left base, clear on the right no wheezing Heart- normal rate, regular rhythm; no murmurs Abdomen- normal bowel sounds, nondistended, soft, nontender Extremities- no pretibial edema, no calf tenderness Neuro- alert, oriented x 3; no gross focal neurologic deficits Skin- warm & dry Discharge Data Allergies Allergy/AdvReac Type Severity Reaction Status Date / Time Penicillins Allergy Intermediate Rash Verified 10/06/19 16:07 Sulfa (Sulfonamide AdvReac Severe Rash Verified 10/06/19 16:07 Antibiotics) Consultations 10/06/19 16:10 ED Decision to Admit Stat Ordered Studies 10/06/19 17:31 CT angio chest PE protocol Stat HISTORY: Shortness of breath. Pulmonary embolus. TECHNIQUE: Multiaxial CT images of the chest were performed following the intravenous administration of contrast to evaluate the pulmonary arteries. Maximal intensity projection images were also obtained. A dose lowering technique was utilized adhering to the principles of ALARA. COMPARISON STUDY: Chest CTA 07/21/2018. FINDINGS: Normal caliber thoracic aorta with no evidence for dissection. The heart is normal in size. Right jugular Port-A-Cath terminates at the SVC. Trace right pleural effusion. A 1.3 cm right thyroid nodule. This remains unchanged. Focal soft tissue thickening within the right anterior chest wall has improved. This favors old postoperative change. The visualized liver, spleen, and adrenal glands are unremarkable. A few mildly enlarged left hilar lymph nodes. Mediastinal lymph nodes measure subcentimeter in short axis diameter and remains stable. No right hilar lymphadenopathy. No suspicious lytic or blastic osseous lesions. No filling defects within the pulmonary arteries to suggest pulmonary embolus. Postoperative changes consistent with prior esophagectomy and gastric pull-up. No pneumothorax. Moderate emphysema. Dense consolidation within the majority of the left lower lobe as well as the base of the right lower lobe. A single enlarged right middle lobe bronchial lymph node best seen on image 121 which measures 11 x 7 mm. Scattered subcentimeter indeterminate pulmonary nodules seen on the prior study are not significantly changed.. There are multiple new scattered nodular densities seen within the lung bases which appear to be secondary to the pneumonia. These measure up to 1 cm as seen within the base of the left lower lobe on image 51. IMPRESSION: 1. No evidence for pulmonary embolus. 2. Dense consolidation involving the majority of the left lower lobe and the base of the right middle lobe. This is consistent with a pneumonia is likely secondary to aspiration. 3. Prior esophagectomy with gastric pull-up. 4. Emphysema. 5. Trace right pleural effusion. 6. Mildly enlarged left hilar and right middle lobe bronchial lymph nodes. These are likely reactive. These bear watching future examinations to ensure resolution. 7. Scattered subcentimeter indeterminate pulmonary nodules seen on the prior study are not significantly changed. There are multiple new scattered nodular densities seen within the lung bases which appear to be secondary to the pneumonia. [address] follow-up recommended to ensure resolution of the additional nodules. ACT 112: Negative or not required by law. Hospital Course (1) Acute respiratory failure with hypoxia: (2) Pneumonia: (1) Acute Respiratory Failure with Hypoxia Pneumonia, possible aspiration versus community-acquired clinically much improved Blood Cultures pending: will follow up given imipenem plus doxycycline, nebs Speech therapy evaluation: instructions given transition to Clindamycin x 10 days, Doxycycline x 7 days PRN albuterol inhaler ff up with PCP in 1 week (2)Pulmonary Nodules, Lymphadenopathy (full report in the Procedure section above) CT chest: - Mildly enlarged left hilar and right middle lobe bronchial lymph nodes. These are likely reactive. These bear watching future examinations to ensure resolution. - Scattered subcentimeter indeterminate pulmonary nodules seen on the prior study are not significantly changed. There are multiple new scattered nodular densities seen within the lung bases which appear to be secondary to the pneumonia. [address] follow-up recommended to ensure resolution of the additional nodules. -- follow up and repeat imaging as outpatient ACT 112: Negative or not required by law. (3) Chronic osteomyelitis: (4) Surgical wound, non healing: Per admitting service notes Follows Dr. Soto thoracic and cardiac surgery s/p R rib excision and bx +chronic osteomyelitis, ecoli s/p wound vac Follows [facility] wound care, wound consult placed pt candidate for hyperbaric therapy (5) Thrombocytopenia: Plt 87--> 95k monitor as outpatient repeat CBC in 1 week (6) Esophageal cancer: Per admitting service notes Follows [facility] oncology Dr. Ambrocio Lower esophageal adenoca s/p esophagectomy, chemo and xrt, completed in 09/2018 currently in remission (7) GERD (gastroesophageal reflux disease): continue PPI (8) DVT prophylaxis: Lovenox given d/c home ff up with PCP in 1 week Total Time Total Time Spent Total Time Spent (In Minutes): 45 minutes Discharge Plan Discharge Items Patient Disposition: Home - Self-Care Reason For Visit: HYPOXIA,PNEUMONIA Discharge Diagnosis: PNEUMONIA, LIKELY ASPIRATION RELATED Activity: As commented below Activity Comment: RESUME ACTIVITY GRADUALLY TOLERATED Lifting: Wait until after follow-up appointment Exercise/Sports: Wait until after follow-up appointment Driving/Machine Use: NO DRIVING UNTIL RE-EVALUATED AND ALLOWED BY PRIMARY CARE PHYSICIAN Non-emergency contact: Primary Care Provider Call non-emergency contact if: you have any medication questions, your symptoms worsen, you have a fever, your wound has increased redness, your wound has increased drainage and your wound pain has increased Follow-up/Referrals: Josiah Sampson MD [Primary Care Provider] - Diet: Heart Healthy Addtl Attending Provider Instructions: PLEASE REVIEW YOUR NEW MEDICATION LIST AND FOLLOW INSTRUCTIONS CAREFULLY. TAKE A PROBIOTIC AND YOGURT DAILY X AT LEAST 1 MONTH. DRINK PLENTY OF FLUIDS. CALL PRIMARY CARE PHYSICIAN OR RETURN TO THE ER IMMEDIATELY IF WITH RECURRENCE/WORSENING OF SYMPTOMS, SHORTNESS OF BREATH, COUGH, SPUTUM, FEVER/CHILLS, WEAKNESS, NAUSEA/VOMITING. FOLLOW UP WITH PRIMARY CARE PHYSICIAN IN 1 WEEK. SPEECH THERAPY RECOMMENDATIONS: ALTERNATE SOLIDS AND LIQUIDS SINGLE BITES/SMALL SIPS/SLOW RATE HEAD 30 DEGREES ALL THE TIME SMALL FREQUENT MEALS UPRIGHT WITH MEALS +30 MINUTES Pending Studies at Discharge: Yes Studies:: FINAL BLOOD CULTURE RESULTS Stand-Alone Forms: My [facility], Smoking Cessation Medications and DC Order Prescriptions: New clindamycin HCl 150 mg capsule 450 mg PO Q8H 10 Days Qty: 90 RF: 0 doxycycline hyclate 100 mg capsule 100 mg PO BID 7 Days Qty: 14 RF: 0 albuterol sulfate 90 mcg/actuation HFA aerosol inhaler 2 puffs INH Q4H PRN (Reason: shortness of breath or wheezing) Qty: 18 RF: 1 Continued omeprazole 40 mg capsule,delayed release(DR/EC) 40 mg PO BID RF: 0 sennosides [senna] 8.6 mg tablet 8.6 mg PO QAM RF: 0 tramadol [Ultram] 50 mg tablet 50 mg PO Q6H PRN (Reason: Pain) RF: 0 lorazepam [Ativan] 0.5 mg tablet 0.5 mg PO TID PRN (Reason: Anxiety) RF: 0 Discharge Orders: Discharge Order (Routine); Ordered 10/08/19 Ordered By: Yosvany Judd Admission Data Admit Date/Time: 10/06/19 16:34 Attending Provider: Yosvany Judd Admit Provider: Jeb Weiss Primary Care Provider: Josiah Sampson Other Providers: Jeb Weiss
[2019-10-08] MEDS ORDERED: POTASSIUM CHLORIDE 20 MEQ TABCR PO STA (10:56)
[2019-10-08] MEDS: NSS + 20MEQ KCL 20 MEQ/1,000 ML BAG IV SCH (11:51)
--- NOTE | 2019-10-08 11:56 | Communication Note ---
Date of Service: October 08, 2019 /: PATIENT MARILIN FLEMING WAS ADMITTED TO [facility] FOR EVALUATION AND MANAGEMENT FROM OCTOBER 06, 2019 TO OCTOBER 08, 2019. PATIENT IS ADVISED TO REST AT HOME AND FOLLOW UP WITH THE PRIMARY CARE PHYSICIAN FIRST WITHIN 1 WEEK PRIOR TO RETURNING TO WORK. THANK YOU. SINCERELY, PERFECTO FORMAN MD ATTENDING PHYSICIAN
== END 2019-10-08 12:54 | disposition home or self-care (01) | DRG 177 ==
LOC: ED 12:36 → 2S 16:34 → SUATTDRO 16:34 → 2S 17:30

== ENCOUNTER 2020-01-11 11:56 | Inpatient (IN) ==
[~2020-01-11 11:56] MED LIST changes: -CITA10TA4 PO; +CLINDAMYCIN HCL 150 MG CAP PO SCH; -CYCL5TAB PO; -PRLSR20 PO; -SIMV20TA2 PO; -TRAM-10 PO; -TRIATAB3 PO
[2020-01-11] MEDS ORDERED: SODIUM CHLORIDE 0.9% 1000ML 1,000 ML IV ONE (12:52)
[2020-01-11] MEDS ORDERED: ONDANSETRON INJ 2 MG/ML 2 ML VIAL IV STA (12:52)
[2020-01-11 13:08] LABS: Hematocrit (blood only) 39.9 % (37-47); Hemoglobin 12.8 g/dL (12.0-16.0); Mean Corpuscular Hemoglobin 29.6 pg (25-34); Mean Corpuscular Hgb Conc 32.1 g/dL (32-36); Mean Corpuscular Volume 92.4 fL (80-100); RDW Standard Deviation 47.2 fL (36.4-46.3); Red Blood Count 4.32 M/uL (4.2-5.4); White Blood Count 7.18 K/uL (4.8-10.8)
[2020-01-11 13:19] LABS: Albumin Level 3.1 gm/dl (3.4-5.0); BUN Creatinine Ratio 28.2 (10-20); Calcium 9.5 mg/dl (8.5-10.1); Est GFR (African American) 108.1; Est GFR (Non-African American) 93.2; Potassium 3.6 mmol/L (3.5-5.1)
[2020-01-11 13:22] LABS: Albumin Globulin Ratio 0.8 (0.9-2); Bilirubin,Total 1.2 mg/dl (0.2-1); Globulin 4.1 gm/dl (2.5-4.0); Total Protein 7.2 gm/dl (6.4-8.2)
[2020-01-11 13:50] LABS: Basophils # (auto) 0.01 K/uL (0-0.2); Basophils % (auto) 0.1 %; Eosinophils # (auto) 0.14 K/uL (0-0.5); Eosinophils % (auto) 1.9 %; Immature Granulocytes # (auto) 0.01 K/uL (0.00-0.02); Immature Granulocytes % (auto) 0.1 %; Lymphocytes # (auto) 0.79 K/uL (1.2-3.4); Neutrophils # (auto) 5.73 K/uL (1.4-6.5); Neutrophils % (auto) 79.9 %; Platelet Count 98 K/uL (130-400); Platelet Estimate Decreased (Normal); RBC Morphology Unremarkable
[2020-01-11] MEDS ORDERED: IOVERSOL 100ml IV PRN (13:59)
--- NOTE | 2020-01-11 14:01 | Emergency Department Note ---
Impression & Plan Pneumonitis, Left sided abdominal pain, Nausea & vomiting, Acute deep vein thrombosis (DVT) of femoral vein of left lower extremity ED Provider Note NAME: MARILIN FLEMING AGE: 59 SEX: F ARRIVES VIA: Walk-In INFORMANT: [Patient] ED PROVIDER(S): Benjamín Mccoy MD CHIEF COMPLAINT: Left-sided abdominal pain and vomiting PLAN: Disposition: Admitted Condition: [Good] MEDICAL DECISION MAKING: Patient presented emergency department complaint of left-sided abdominal pain and vomiting. She does have a history of vomiting and aspiration. While she was here she developed a cough. The patient had pneumonitis noted on CT imaging. No acute findings in the abdomen pelvis were noted however she was found to have findings concerning for possible femoral DVT. Ultrasound imaging was performed and showed a significant DVT in the proximal femoral system. She was treated with saline as well as Zofran. The nausea and vomiting had resolved. She was given IV clindamycin. I consulted with internal medicine. Hypercoagulability labs were requested and these were ordered. The patient had an unremarkable CBC and chemistry panel except for mild thrombocytopenia. Urinalysis was unremarkable. Patient was evaluated in the emergency department by internal medicine for further management. Triage Nursing notes reviewed and agree them. [Prior medical records reviewed] patient had prior visit for aspiration pneumonia. Vital Signs: reviewed and remarkable for [no significant abnormalities] Differential diagnosis: Diverticulitis, UTI, obstruction, appendicitis, ovarian cyst, ovarian torsion, ectopic , TOA, PID, infections, mesenteric ischemia, aortic pathology, inflammatory bowel disease, renal colic, PUD, pancreatitis, biliary pathology, hernia, volvulus, constipation, as well as other pathologies. ER treatment provided: IV Zofran IV normal saline hydration Patient declined analgesia Diagnostics interpreted by me: ECG: Rate: 81 Rhythm:Normal sinus Orange:Normal QRS:Normal ST segements:No elevation or depression Other:No PACs or PVCs Laboratory studies: [See below] unremarkable CBC and chemistry panel. Imaging studies: Patchy airspace consolidation is seen at both lung bases, left greater than right. The appearance is typical for pneumonia/aspiration pneumonitis. Consultation(s): [facility]ist service HPI: 59/F arrives for evaluation of left-sided abdominal pain. Patient states she developed abdominal pain yesterday and it was accompanied by nausea and vomiting. She has tried to orally hydrate but has not been very successful. She has a history of esophageal cancer with esophagectomy and gastric pull-thro ugh. The patient does not feel that she aspirated with this current vomiting episode. She notes her pain was up to 7 out of 10 but has seemed to wane to a 2 out of 10 currently. She took no medications for her symptoms. She denies any other abdominal surgeries. Pt denies LOC, headache, fevers, chills, diaphoresis, visual changes, neck pain, chest pain, breathing difficulties, back pain, melena, hematochezia, urinary symptoms, numbness, weakness, lymphadenopathy, rash, or other complaints. ROS: See above HPI for pertinent positives & negatives. A total of [10] systems reviewed and were otherwise negative. PAST MEDICAL HISTORY:[See Below] esophageal cancer PAST SURGICAL HISTORY:[See Below]esophagectomy FAMILY HISTORY:[See Below] SOCIAL HISTORY:[See Below] lives with family HOME MEDICATIONS:[See Below] ALLERGIES:[See Below] VITALS:[See Below] PHYSICAL EXAMINATION: GENERAL: Awake, alert, mildly uncomfortable-appearing, in no distress HENT: Normocephalic, atraumatic. Oropharynx unremarkable. EYES: Normal conjunctiva. Sclera non-icteric. NECK: Inspection normal. Non-tender. Supple. No nuchal rigidity. FROM. No masses. RESPIRATORY: Clear to auscultation. No wheezes. No rales. Normal respiratory effort. CARDIAC: Normal rate. Normal rhythm. No murmurs. No rubs. Extremities warm and well perfused. Pulses equal. No JVD. GI: Soft, non-distended. Mild left-sided tenderness to palpation. No rebound or guarding. No masses. RECTAL: Deferred. MUSCULOSKELETAL: Atraumatic. Chest examination reveals Mediport in the right upper chest. The back is symmetrical on inspection without obvious abnormality. There is no CVA tenderness to palpation. No joint edema. LOWER EXTREMITIES: Calves are equal size bilaterally and non-tender. No edema. No discoloration. NEURO: Normal sensorium. No sensory or motor deficits noted. SKIN: No rash or jaundice noted. ED COURSE: [Critical Care:] [None] Benjamín Mccoy MD Past Med/Surg History Medical History Adenocarcinoma of esophagus (02/22/18) "History of reflux esophagitis Development of weight loss and dysphagia Status post upper GI endoscopy and biopsy February 22, 2018 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 Radiation therapy completed May 12, 2018. She received 5040 cGy. Cervical polyp Esophageal cancer (Chronic) GERD (gastroesophageal reflux disease) Hyperlipidemia Hypertension Surgical History H/O left knee surgery H/O tooth extraction History of esophageal surgery (Acute) Status post hysteroscopic ablation of endometrium Family History Father Esophageal cancer Lung cancer Social History Preferred Language: Lao Communication Ability: Effective Dietary Cook Required: No Beliefs That Will Affect Care: None marital status: marital status details: Current Living Situation: Family current occupational status: employed Other Information That Helps Us Care for You: No Feels Safe at Home: Yes Safety Concerns: Feels Safe At This Time Smoking Status: Former smoker Tobacco Type: cigarettes ; Second Hand Exposure: No ; Hx Alcohol Use: Yes Alcohol type: wine Hx Substance Use: No Allergies Allergies Allergy/AdvReac Type Severity Reaction Status Date / Time Penicillins Allergy Intermediate Rash Verified 01/11/20 13:10 Sulfa (Sulfonamide AdvReac Severe Rash Verified 01/11/20 13:10 Antibiotics) Home Meds Home Medications Medication Instructions Recorded Confirmed omeprazole 40 mg capsule,delayed 40 mg PO BID 10/06/19 01/11/20 release Results & Data (ED) Vital Signs Vital Signs - 24 hr 01/11/20 12:00 01/11/20 12:30 01/11/20 12:37 Temperature 36.9 C Temperature Source Oral Pulse Rate 100 H 89 Pulse Rate [Apical] 85 Pulse Rate from SpO2 Sensor 89 Pulse Rhythm [Apical] Regular Pulse Strength [Apical] Normal Respiratory Rate 20 21 Respiratory Effort / Characteristics Non-Labored Spontaneous Non-Labored Spontaneous Respiratory Depth Normal Normal Respiratory Pattern Regular Blood Pressure 118/80 108/76 Blood Pressure [Left Arm] 110/75 Blood Pressure Mean 92 84 Blood Pressure Mean [Left Arm] 86 Blood Pressure Position [Left Arm] Semi-fowlers Pulse Oximetry 92 94 93 Oxygen Delivery Method Room Air Room Air Room Air Sepsis Recent Fever Within 48 Hours No Sepsis New/Unexplained Change in Mental Status No Sepsis Action Taken by Nursing No Action Required 01/11/20 13:00 01/11/20 13:30 01/11/20 14:30 Temperature Temperature Source Pulse Rate 90 90 80 Pulse Rate [Apical] Pulse Rate from SpO2 Sensor 91 H 90 80 Pulse Rhythm [Apical] Pulse Strength [Apical] Respiratory Rate 23 22 20 Respiratory Effort / Characteristics Respiratory Depth Respiratory Pattern Blood Pressure 105/72 118/71 110/77 Blood Pressure [Left Arm] Blood Pressure Mean 86 84 83 Blood Pressure Mean [Left Arm] Blood Pressure Position [Left Arm] Pulse Oximetry 93 96 92 Oxygen Delivery Method Room Air Sepsis Recent Fever Within 48 Hours Sepsis New/Unexplained Change in Mental Status Sepsis Action Taken by Nursing 01/11/20 15:00 01/11/20 16:00 01/11/20 16:30 Temperature Temperature Source Pulse Rate 78 66 69 Pulse Rate [Apical] Pulse Rate from SpO2 Sensor Pulse Rhythm [Apical] Pulse Strength [Apical] Respiratory Rate 18 14 16 Respiratory Effort / Characteristics Respiratory Depth Respiratory Pattern Blood Pressure 102/74 97/67 L 98/63 L Blood Pressure [Left Arm] Blood Pressure Mean 79 77 72 Blood Pressure Mean [Left Arm] Blood Pressure Position [Left Arm] Pulse Oximetry 95 95 Oxygen Delivery Method Room Air Room Air Sepsis Recent Fever Within 48 Hours Sepsis New/Unexplained Change in Mental Status Sepsis Action Taken by Nursing 01/11/20 17:00 Temperature Temperature Source Pulse Rate 81 Pulse Rate [Apical] Pulse Rate from SpO2 Sensor 79 Pulse Rhythm [Apical] Pulse Strength [Apical] Respiratory Rate 15 Respiratory Effort / Characteristics Respiratory Depth Respiratory Pattern Blood Pressure 115/74 Blood Pressure [Left Arm] Blood Pressure Mean 82 Blood Pressure Mean [Left Arm] Blood Pressure Position [Left Arm] Pulse Oximetry 96 Oxygen Delivery Method Sepsis Recent Fever Within 48 Hours Sepsis New/Unexplained Change in Mental Status Sepsis Action Taken by Nursing Laboratory Data Result diagrams: 01/11/20 12:50 01/11/20 12:50 Lab Results 01/11/20 01/11/20 01/11/20 Range/Units 12:50 12:50 12:51 WBC 7.18 (4.8-10.8) K/uL RBC 4.32 (4.2-5.4) M/uL Hgb 12.8 (12.0-16.0) g/dL Hct 39.9 (37-47) % MCV 92.4 (80-100) fL MCH 29.6 (25-34) pg MCHC 32.1 (32-36) g/dL RDW Std Deviation 47.2 H (36.4-46.3) fL RDW Coeff of [place] 14.0 (11.5-14.5) % Plt Count 98 L (130-400) K/uL MPV 10.0 (7.4-10.4) fL Immature Gran % (Auto) 0.1 % Neut % (Auto) 79.9 % Lymph % (Auto) 11.0 % [place] % (Auto) 7.0 % Eos % (Auto) 1.9 % Baso % (Auto) 0.1 % Immature Gran # (Auto) 0.01 (0.00-0.02) K/uL Neut # (Auto) 5.73 (1.4-6.5) K/uL Lymph # (Auto) 0.79 L (1.2-3.4) K/uL [place] # (Auto) 0.50 (0.11-0.59) K/uL Eos # (Auto) 0.14 (0-0.5) K/uL Baso # (Auto) 0.01 (0-0.2) K/uL Platelet Estimate Decreased L (Normal) RBC Morphology Unremarkable PT 11.8 (9.0-12.0) Seconds INR 1.1 (0.9-1.1) APTT 33.8 H (21.0-31.0) Seconds PTT Ratio 1.2 Sodium 139 (136-145) mmol/L Potassium 3.6 (3.5-5.1) mmol/L Chloride 105 (98-107) mmol/L Carbon Dioxide 28 (21-32) mmol/L Anion Gap 6.0 (3-11) BUN 20 H (7-18) mg/dl Creatinine 0.71 (0.6-1.2) mg/dl Est Cr Clr Drug Dosing 83.0 ml/min Est GFR ( Amer) 108.1 Est GFR (Non-Af Amer) 93.2 BUN/Creatinine Ratio 28.2 H (10-20) Glucose 88 (70-99) mg/dl Calcium 9.5 (8.5-10.1) mg/dl Total Bilirubin 1.2 H (0.2-1) mg/dl AST 7 L (15-37) U/L ALT 13 (12-78) U/L Alkaline Phosphatase 81 (45-117) U/L Total Protein 7.2 (6.4-8.2) gm/dl Albumin 3.1 L (3.4-5.0) gm/dl Globulin 4.1 H (2.5-4.0) gm/dl Albumin/Globulin Ratio 0.8 L (0.9-2) Lipase 48 L (73-393) U/L Urine Color Urine Appearance (Clear) Urine pH (4.5-7.5) Ur Specific [place] (1.000-1.030) Urine Protein (Negative) Urine Glucose (UA) (Negative) Urine Ketones (Negative) Urine Blood (Negative) Urine Nitrite (Negative) Urine Bilirubin (Negative) Urine Urobilinogen (Negative) Ur Leukocyte Esterase (Negative) Urine WBC (Auto) (0-5) /hpf Urine RBC (Auto) (0-4) /hpf U Hyaline Cast (Auto) (0-5) /lpf U Epithel Cells (Auto) (0-5) /lpf Urine Bacteria (Auto) (Negative) 01/11/20 Range/Units 14:25 WBC (4.8-10.8) K/uL RBC (4.2-5.4) M/uL Hgb (12.0-16.0) g/dL Hct (37-47) % MCV (80-100) fL MCH (25-34) pg MCHC (32-36) g/dL RDW Std Deviation (36.4-46.3) fL RDW Coeff of [place] (11.5-14.5) % Plt Count (130-400) K/uL MPV (7.4-10.4) fL Immature Gran % (Auto) % Neut % (Auto) % Lymph % (Auto) % [place] % (Auto) % Eos % (Auto) % Baso % (Auto) % Immature Gran # (Auto) (0.00-0.02) K/uL Neut # (Auto) (1.4-6.5) K/uL Lymph # (Auto) (1.2-3.4) K/uL [place] # (Auto) (0.11-0.59) K/uL Eos # (Auto) (0-0.5) K/uL Baso # (Auto) (0-0.2) K/uL Platelet Estimate (Normal) RBC Morphology PT (9.0-12.0) Seconds INR (0.9-1.1) APTT (21.0-31.0) Seconds PTT Ratio Sodium (136-145) mmol/L Potassium (3.5-5.1) mmol/L Chloride (98-107) mmol/L Carbon Dioxide (21-32) mmol/L Anion Gap (3-11) BUN (7-18) mg/dl Creatinine (0.6-1.2) mg/dl Est Cr Clr Drug Dosing ml/min Est GFR ( Amer) Est GFR (Non-Af Amer) BUN/Creatinine Ratio (10-20) Glucose (70-99) mg/dl Calcium (8.5-10.1) mg/dl Total Bilirubin (0.2-1) mg/dl AST (15-37) U/L ALT (12-78) U/L Alkaline Phosphatase (45-117) U/L Total Protein (6.4-8.2) gm/dl Albumin (3.4-5.0) gm/dl Globulin (2.5-4.0) gm/dl Albumin/Globulin Ratio (0.9-2) Lipase (73-393) U/L Urine Color Yellow Urine Appearance Clear (Clear) Urine pH 5.0 (4.5-7.5) Ur Specific [place] 1.018 (1.000-1.030) Urine Protein Negative (Negative) Urine Glucose (UA) Negative (Negative) Urine Ketones Negative (Negative) Urine Blood Trace H (Negative) Urine Nitrite Negative (Negative) Urine Bilirubin Negative (Negative) Urine Urobilinogen Negative (Negative) Ur Leukocyte Esterase 1+ H (Negative) Urine WBC (Auto) 1-5 (0-5) /hpf Urine RBC (Auto) 0-4 (0-4) /hpf U Hyaline Cast (Auto) 0 (0-5) /lpf U Epithel Cells (Auto) >30 H (0-5) /lpf Urine Bacteria (Auto) Negative (Negative) Administered Medications Discontinued Medications Acetaminophen (Tylenol) 1,000 mg PO NOW STA Stop: 01/11/20 14:13 Last Admin: 01/11/20 14:29 Dose: 1,000 mg Documented by: [id number] Sodium Chloride (Nss 1000ml) 1,000 mls @ 999 mls/hr IV .Q1H1M ONE Stop: 01/11/20 13:52 Last Infusion: 01/11/20 14:04 Dose: 0 mls/hr Documented by: [id number] Admin: 01/11/20 12:58 Dose: 999 mls/hr Documented by: [id number] Clindamycin Phosphate (Cleocin) 600 mg in 54 mls @ 100 mls/hr IV ONE ONE Stop: 01/11/20 17:05 Last Infusion: 01/11/20 18:19 Dose: 0 mls/hr Documented by: [id number] Admin: 01/11/20 17:49 Dose: 100 mls/hr Documented by: [id number] Ioversol (Optiray 320 100ml) 94 ml IV ONCE PRN PRN Reason: Interaction Checking Stop: 01/15/20 13:58 Last Admin: 01/11/20 13:59 Dose: 94 ml Documented by: [id number] Ondansetron HCl (Zofran) 4 mg IV NOW STA Stop: 01/11/20 12:53 Last Admin: 01/11/20 12:58 Dose: 4 mg Documented by: [id number] Discharge Plan Visit Data *Final* Discharge Date/Time: 01/11/20 18:09 Chief Complaint: Vomiting Stated Complaint: VOMITING FOR 2 DAYS,ABD PAIN ED Provider: Benjamín Mccoy Discharge Problem: Pneumonitis, Left sided abdominal pain, Nausea & vomiting, Acute deep vein thrombosis (DVT) of femoral vein of left lower extremity Patient Disposition: Admitted As Inpatient Discharge Instructions Interventions: ED Discharge Assessment Last Done: 01/11/20 18:09
[2020-01-11] MEDS ORDERED: ACETAMINOPHEN 500 MG TAB PO STA (14:12)
--- NOTE | 2020-01-11 14:20 | CT Scan Report ---
CT abd pelvis IV con only CLINICAL HISTORY: left sided abd pain, vomiting. esophagectomy hx COMPARISON STUDY: CT scan dated 06/08/2018, PET/CT performed December 06, 2019 TECHNIQUE: The patient was scanned in a dynamic helical fashion during intravenous administration of 94 cc Optiray 320 A dose lowering technique was utilized adhering to the principles of ALARA. CT DOSE: 775.77 mGycm FINDINGS: Lower chest: There are postsurgical changes of esophagectomy and gastric pull-up. There are persisten t airspace opacities within the right middle lobe and left lower lobe, suspicious for a pneumonitis. Clinical correlation in this regard is advocated. Liver: The contrast-enhanced liver is normal in size, contour, and attenuation. There is no intrahepa tic biliary ductal dilatation. The hepatic veins and portal veins are patent. Gallbladder: Unremarkable. Spleen: Mild splenomegaly. No focal masses identified Pancreas: Unremarkable. Adrenal glands: There is mild bilateral adrenal gland thickening Kidneys: No solid renal masses are visualized. Multiple right renal cysts are evident. There is no hy dronephrosis. Bowel: There are no transition zones indicate bowel obstruction. The appendix appears normal. There i s colonic diverticulosis. There are no acute peridiverticular inflammatory changes. Peritoneum: There is no intraperitoneal free air or abdominal ascites. Vasculature: The abdominal aorta is normal in course and caliber. There is a left femoral vein fillin g defects suspicious for a DVT. Adenopathy: None. Pelvic viscera: The bladder, and pelvic viscera are unremarkable. Skeletal structures: No destructive osseous lesions are seen. Advanced arthritic changes are present within the left hip. IMPRESSION: 1. Postsurgical changes of esophagectomy and gastric pull-up 2. Persistent right middle lobe and left lower lobe airspace opacities suspicious for a chronic pneum onitis 3. No evidence of bowel obstruction. No evidence of free air 4. Normal appendix 5. Colonic diverticulosis. No evidence of acute diverticulitis 6. Left femoral vein filling defect suspicious for a DVT. Ultrasound correlation is recommended as de emed clinically appropriate. ACT 112: Negative or not required by law. Electronically signed by: Emmett Fortune M.D. 01/11/2020 2:19 PM
[2020-01-11 14:51] LABS: Appearance Urine Clear (Clear); Bacteria Urine Automated Negative (Negative); Bilirubin Urine Negative (Negative); Blood Urine Trace (Negative); Cast Urine Automated 0 /lpf (0-5); Color Urine Yellow; Epithelial Cell Urine Auto >30 /lpf (0-5); Glucose Urine UA Negative (Negative); Ketones Urine Negative (Negative); Leukocyte Esterase Urine 1+ (Negative); Nitrite Urine Negative (Negative); Protein Urine Negative (Negative); RBC Urine Automated 0-4 /hpf (0-4); Specific Gravity Urine 1.018 (1.000-1.030); Urobilinogen Urine Negative (Negative)
--- NOTE | 2020-01-11 15:49 | Ultrasound Report ---
ULTRASOUND LEFT LOWER EXTREMITY VENOUS CLINICAL HISTORY: Follow-up abnormal CT scan. Left lower extremity DVT. COMPARISON STUDY: Abdominal CT dated 01/11/2020. TECHNIQUE: Real-time, grayscale, and color Doppler sonography of the deep veins of the left lower ext remity was performed from the inguinal crease to the calf. Compression and augmentation were utilized . FINDINGS: There is nearly occlusive deep venous thrombosis identified in the left common femoral vein and the proximal left superficial femoral vein. The mid to distal superficial femoral vein and the p opliteal vein are patent and normally compressible. The greater saphenous vein and the profunda femor is vein at the junction with the common femoral vein are clear. The visualized calf veins are patent. IMPRESSION: Nearly occlusive deep venous thrombosis is seen in the common femoral vein and proximal s uperficial femoral vein as above. ACT 112: Negative or not required by law. Electronically signed by: Enrique Orellana M.D. 01/11/2020 3:48 PM
[2020-01-11] MEDS ORDERED: CLINDAMYCIN 600 MG/54 ML BAG IV ONE (16:33)
--- NOTE | 2020-01-11 16:55 | Electrocardiogram Report ---
Test Reason : Blood Pressure : / mmHG Vent. Rate : 081 BPM Atrial Rate : 081 BPM P-R Int : 142 ms QRS Dur : 084 ms QT Int : 378 ms P-R-T Axes : 046 038 060 degrees QTc Int : 439 ms Normal sinus rhythm Normal ECG When compared with ECG of 06-OCT-2019 13:49, Sinus rhythm has replaced Junctional rhythm Confirmed by Brian Echevarria ([id number]) on 01/11/2020 4:54:42 PM Referred By: REFERRED SELF Confirmed By:Brian Echevarria
[2020-01-11 17:03] LABS: INR 1.1 (0.9-1.1); Partial Thromboplastin Ratio 1.2; Partial Thromboplastin Time 33.8 Seconds (21.0-31.0); Prothrombin Time 11.8 Seconds (9.0-12.0)
--- NOTE | 2020-01-11 17:16 | XRay Report ---
SINGLE VIEW CHEST CLINICAL HISTORY: Cough. Pneumonitis. FINDINGS: 2 AP, portable, upright chest radiographs are compared to chest x-ray and chest CT dated . The examination is degraded by portable technique and patient rotation. A right-sided centr al venous infusion port is unchanged in position. The heart is top normal for projection. Emphysema a nd chronic residual thickening are similar to previous. There is patchy airspace consolidation at bot h lung bases, left greater than right. No large pleural effusion is identified. No pneumothorax is se en. The skeletal structures are osteopenic. The bony thorax is grossly intact. Advanced arthritic jensen nge is noted in the shoulders. IMPRESSION: 1. Patchy airspace consolidation is seen at both lung bases, left greater than right. The appearance is typical for pneumonia/aspiration pneumonitis. Clinical correlation will be required and radiograph ic follow-up to resolution is recommended. 2. Emphysema. ACT 112: Negative or not required by law. Electronically signed by: Enrique Orellana M.D. 01/11/2020 5:14 PM
--- NOTE | 2020-01-11 17:19 | History & Physical Report ---
Date of Service January 11, 2020 Assessment & Plan (1) Aspiration pneumonitis: This is a 59-year-old female with PMH of esophageal cancer (s/p esophagectomy and gastric pull-up, completed chemo in 09/27), GERD and other medical problems listed below who presents with 2 episodes of vomiting yesterday and was found to have aspiration pneumonitis. -Recurrent aspiration with h/o aspiration pneumonitis -CXR with patchy airspace consolidation is seen at both lung bases, left greater than right. The appearance is typical for pneumonia/aspiration pneumonitis -Afebrile, oxygen saturation 96% on room air, no shortness of breath -Started on IV clindamycin due to multiple medication allergies. Plan to transition to p.o. -Speech eval, GI eval due to history of esophagectomy with gastric pull-up -Advanced to clear liquids, aspiration precautions (2) Acute deep vein thrombosis of femoral vein: Appears unprovoked. Endorses palpable cord on right leg a few weeks ago as well. Will check venous Doppler of RLE -Hypercoagulability panel completed in ED -Concern for recurrent esophageal cancer, but following closely with Dr. Ambrocio of heme-onc with recent PET scan in November 2019 that was negative for malignancy -Starting therapeutic SQ Lovenox 70mg Q12H (3) Esophageal cancer: History of esophageal cancer s/p esophagectomy and gastric pull-up, completed chemo in 09/27 -Follows with Dr. Ambrocio of medical heme onc for reactive lymph nodes in neck seen on PET scan in November 2019. Had biopsy that revealed reactive nature but non-cancerous. Has repeat neck ultrasound at the end of the month -Recent PET scan in November 2019 that was negative for malignancy (4) Thrombocytopenia: Platelets stable near baseline at 98 (5) GERD (gastroesophageal reflux disease): Continue protonix BID DVT Ppx: therapeutic dose Lovenox started Code status: FULL PCP: Adrián Dispo: Admitted to [facility]. Plan to return home once medically stable. Patient seen in collaboration with Dr. Judd. Please see addendum. History of Present Illness Chief Complaint: Vomiting, concern for aspiration Primary Care Provider: Josiah Sampson MD This is a 59-year-old female with PMH of esophageal cancer (s/p esophagectomy and gastric pull-up, completed chemo in 09/27), GERD and other medical problems listed below who presents with 2 episodes of vomiting yesterday. States she had eaten too late the night before and as a result of esophageal surgical history, aspirated gastric contents with two subsequent episodes of vomiting. This happened a few months ago in October and patient was admitted for treatment of aspiration pneumonitis. Denies any fever or chills. No lightheadedness, headache, shortness of breath, hemoptysis, wheezing, dysuria, diarrhea or constipation. Of note, on initial CT abdomen pelvis, was found to have evidence of a left femoral vein DVT. Follow-up venous Doppler of left lower extremity revealed nearly occlusive DVT in common femoral vein. Patient denies recent travel in airplane or extended trip in car. No recent surgical procedures and is not on h ormone replacement. Has been following with Dr. Ambrocio of medical heme onc for reactive lymph nodes in neck seen on PET scan in November 2019. Had biopsy that revealed reactive nature but non-cancerous. Has repeat neck ultrasound at the end of the month. Allergies Allergy/AdvReac Type Severity Reaction Status Date / Time Penicillins Allergy Intermediate Rash Verified 01/11/20 13:10 Sulfa (Sulfonamide AdvReac Severe Rash Verified 01/11/20 13:10 Antibiotics) Home Medications Home Medications Medication Instructions Recorded Confirmed Type omeprazole 40 mg capsule,delayed 40 mg PO BID 10/06/19 01/11/20 History release Past Med/Surg History Medical History Adenocarcinoma of esophagus (02/22/18) "History of reflux esophagitis Development of weight loss and dysphagia Status post upper GI endoscopy and biopsy February 22, 2018 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 Radiation therapy completed May 12, 2018. She received 5040 cGy. Cervical polyp Esophageal cancer (Chronic) GERD (gastroesophageal reflux disease) Hyperlipidemia Hypertension Surgical History H/O left knee surgery H/O tooth extraction History of esophageal surgery (Acute) Status post hysteroscopic ablation of endometrium Family History Father Esophageal cancer Lung cancer Social History Preferred Language: Romansh Communication Ability: Effective Training Program Manager Required: No Beliefs That Will Affect Care: None marital status: marital status details: Current Living Situation: Family current occupational status: employed Other Information That Helps Us Care for You: No Feels Safe at Home: Yes Safety Concerns: Feels Safe At This Time Smoking Status: Former smoker Tobacco Type: cigarettes ; Second Hand Exposure: No ; Hx Alcohol Use: Yes Alcohol type: wine Hx Substance Use: No Review of Systems Review of Systems: At least ten systems reviewed and negative except as noted in the HPI. Physical Exam Physical Exam: General Appearance: WD/WN, vitals as above, NAD, sitting up in bed, pleasant, conversing easily Head: normocephalic, atraumatic Eyes: normal inspection, PERRL, conjunctivae normal, anicteric sclerae ENT: external ear and nose normal, oropharynx normal Neck: trachea midline, no thyromegaly, normal visual inspection Respiratory: normal respiratory effort, bibasilar crackles, no wheeze or rhonchi. Normal insp/exp effort, no accessory muscle use Cardiovascular: regular rate, rhythm, no murmur, normal peripheral pulses. Vessels: no JVD or carotid bruit Chest: normal inspection of chest Abdomen/GI: normal bowel sounds, soft, nontender, no hepatosplenomegaly Extremities/Musculoskeletal: no cyanosis or clubbing, extremities motor strength 5/5. No palpable cords, warmth or edema noted in BLE Neurologic: PERRL, EOMI, accommodation nl, no face palsy, no dysarthria, CN's II-XI intact bilaterally and moves all extremities Psychiatric: A+Ox3, euthymic affect Skin: no rashes, normal color, warm/dry Results & Data Results & Data ([facility]) Vital Signs (Past 12 Hours) Vital Signs Temp Pulse Pulse Resp BP BP Pulse Ox 01/11/20 16:00 66 14 97/67 L 95 01/11/20 15:00 78 18 102/74 95 01/11/20 14:30 80 20 110/77 92 01/11/20 13:30 90 22 118/71 96 01/11/20 13:00 90 23 105/72 93 01/11/20 12:37 93 01/11/20 12:30 89 85 21 108/76 110/75 94 01/11/20 12:00 36.9 C 100 H 20 118/80 92 Laboratory Results Short CBC 01/11/20 Range/Units 12:50 WBC 7.18 (4.8-10.8) K/uL Hgb 12.8 (12.0-16.0) g/dL Hct 39.9 (37-47) % Plt Count 98 L (130-400) K/uL BMP 01/11/20 12:50 Sodium 139 Potassium 3.6 Chloride 105 Carbon Dioxide 28 BUN 20 H Creatinine 0.71 Glucose 88 Calcium 9.5 Liver Function 01/11/20 Range/Units 12:50 Total Bilirubin 1.2 H (0.2-1) mg/dl AST 7 L (15-37) U/L ALT 13 (12-78) U/L Alkaline Phosphatase 81 (45-117) U/L Albumin 3.1 L (3.4-5.0) gm/dl Urine 01/11/20 Range/Units 14:25 Urine Color Yellow Urine Appearance Clear (Clear) Urine pH 5.0 (4.5-7.5) Ur Specific [place] 1.018 (1.000-1.030) Urine Protein Negative (Negative) Urine Glucose (UA) Negative (Negative) Diagnostic Findings CXR: IMPRESSION: 1. Patchy airspace consolidation is seen at both lung bases, left greater than right. The appearance is typical for pneumonia/aspiration pneumonitis. Clinical correlation will be required and radiographic follow-up to resolution is recommended. 2. Emphysema. CT abd/pelvis: IMPRESSION: 1. Postsurgical changes of esophagectomy and gastric pull-up 2. Persistent right middle lobe and left lower lobe airspace opacities suspicious for a chronic pneumonitis 3. No evidence of bowel obstruction. No evidence of free air 4. Normal appendix 5. Colonic diverticulosis. No evidence of acute diverticulitis 6. Left femoral vein filling defect suspicious for a DVT. Ultrasound correlation is recommended as deemed clinically appropriate. Venous doppler LLE: IMPRESSION: Nearly occlusive deep venous thrombosis is seen in the common femoral vein and proximal superficial femoral vein as above. Venous doppler RLE: pending Code Status & VTE Plan VTE Prophylaxis Plan VTE Prophylaxis will be ordered: Yes Supervising Physician Co-Signing Physician Notes Attending Addendum: care coordinated with NARESH Garcia please refer to her notes for full details, I agree with her notes patient seen and examined, records reviewed by myself as well on exam, patient seen resting bed, comfortable, not in distress Left lower quadrant, hip pain improving No shortness of breath, cough, fevers or chills no other symptoms VS noted and reviewed oriented x 3 , not in distress, speaks in sentences with no effort nor accessory muscle use normal rate, regular rhythm, no murmurs clear breath sounds bilaterally non distended, soft, nontender no bipedal edema, erythema, warmth no neuro deficits WBC 7.1 Hg 12.8 Crea 0.71 ASSESSMENT AND PLAN Acute left common femoral vein DVT, in the setting of esophageal cancer Lovenox every 12 hours ordered [address]iscuss[address] with Dr. Lazaro Ambrocio regarding Lovenox versus NOAC Recurrent aspiration pneumonia History of esophageal cancer, status post esophagectomy, gastric pull up Clindamycin IV GI consulted other diagnoses and plan of care as per NARESH Garcia's notes Yosvany Judd MD
--- NOTE | 2020-01-11 18:36 | Ultrasound Report ---
ULTRASOUND RIGHT LOWER EXTREMITY VENOUS CLINICAL HISTORY: Venous injury. COMPARISON STUDY: No priors. TECHNIQUE: Real-time, grayscale, and color Doppler sonography of the deep veins of the right lower ex tremity was performed from the inguinal crease to the calf. Compression and augmentation were utilize d. FINDINGS: There is no sonographic evidence of deep venous thrombosis identified in the right lower ex tremity. The common femoral, superficial femoral, and popliteal veins are patent and normally ayaka sible. The greater saphenous vein and the profunda femoris vein at the junction with the common femor al vein are clear. The visualized calf veins are patent. IMPRESSION: There is no sonographic evidence of deep venous thrombosis identified in the right lower extremity. ACT 112: Negative or not required by law. Electronically signed by: Enrique Orellana M.D. 01/11/2020 6:35 PM
[2020-01-11] MEDS ORDERED: ONDANSETRON INJ 2 MG/ML 2 ML VIAL IV PRN (18:50)
[2020-01-11] MEDS ORDERED: ACETAMINOPHEN 325 MG TAB PO PRN (18:50)
[2020-01-11] MEDS ORDERED: POLYETHYLENE (MIRALAX) 17 GM PACK PO PRN (18:50)
[2020-01-11] MEDS: PANTOprazole 40 MG TAB PO SCH (20:31)
[2020-01-11] MEDS: ENOXAPARIN 80 MG/0.8 ML SYR SQ SCH (20:33)
[2020-01-12] MEDS ORDERED: CLINDAMYCIN HCL 150 MG CAP PO SCH
[2020-01-12] MEDS ORDERED: CLINDAMYCIN CONSULT ACTIVE PRN (01:02)
[2020-01-12] MEDS: CLINDAMYCIN 600 MG in DEXTROSE 5% 50 ML IV SCH ×3 (01:49→16:59)
[2020-01-12] MEDS ORDERED: HEPARIN 100 UNIT/ML 5ML FLUSH ONE ×2 (02:21→10:22)
[2020-01-12 05:54] LABS: Hematocrit (blood only) 35.9 % (37-47); Hemoglobin 11.6 g/dL (12.0-16.0); Mean Corpuscular Hemoglobin 30.4 pg (25-34); Mean Corpuscular Hgb Conc 32.3 g/dL (32-36); RDW Coefficient of Variation 14.1 % (11.5-14.5); RDW Standard Deviation 48.2 fL (36.4-46.3); Red Blood Count 3.82 M/uL (4.2-5.4); White Blood Count 4.98 K/uL (4.8-10.8)
[2020-01-12 06:36] LABS: Basophils # (auto) 0.01 K/uL (0-0.2); Basophils % (auto) 0.2 %; Eosinophils # (auto) 0.28 K/uL (0-0.5); Eosinophils % (auto) 5.6 %; Immature Granulocytes # (auto) 0.01 K/uL (0.00-0.02); Immature Granulocytes % (auto) 0.2 %; Lymphocytes # (auto) 0.64 K/uL (1.2-3.4); Lymphocytes % (auto) 12.9 %; Mean Platelet Volume 10.3 fL (7.4-10.4); Monocytes # (auto) 0.38 K/uL (0.11-0.59); Monocytes % (auto) 7.6 %; Neutrophils # (auto) 3.66 K/uL (1.4-6.5); Neutrophils % (auto) 73.5 %; Ovalocytes 1+; Platelet Count 85 K/uL (130-400)
--- NOTE | 2020-01-12 07:59 | Gastrointestinal Consultation ---
Date of Consultation January 12, 2020 Assessment & Plan (1) Vomiting (bilious) following gastrointestinal surgery: Pt is a 59 y/o female with PMHx esophageal CA s/p esophagectomy with gastric pull-up, chemo tx, h/o gastroparesis and pyloric stenosis, admitted with vomiting, aspiration pneumonitis, and incidentally found left femoral vein DVT. She's had no further vomiting since admission. CT w/ no obstruction. Presently feels well; tolerated clears for breakfast. Abd is soft, HD stable. - Plan for EGD later today to evaluate for recurrent gastric stenosis - Keep NPO - IVF - Empiric ABX as per primary team - Antiemetics, analgesia PRN Thank you for allowing us to participate in the care of this patient. Please call with any acute changes, questions or concerns. Please see addendum below with additional recommendation from my supervising physician. (2) History of esophagectomy: (3) History of esophageal cancer: Supervising Physician Co-Signing Physician Notes I performed a history and physical examination of the patient today, including specifically on physical exam - soft abdomen. I have discussed the patient's management with the advanced practitioner. Please refer to the nurse practitio ner's note for the documented findings and plan of care. 59 yrs old female patient, Hx of esophageal cancer s/p resection with GE anastomosis. Had Hx of pyloric spasm s/p Botox injection. Since then she was feeling fine and vomiting resolved. Now admitted with recurrent pneumonitis. Would need EGD to evaluate pylorus however this can be done electively as OP. Meanwhile, aspiration precautions and small frequent meals. Recall GI if needed. History of Present Illness Reason for Consultation: recurrent aspiration, h/o esophaject w g pull up Attending Physician: Dudley Franklin MD History of Present Illness Pt is a 59 y/o female with PMHx esophageal cancer dx'd 2018,s/p esophagectomy with gastric pull-up, completed chemo 09/27, gastroparesis, h/o severe pyloric stenosis s/p dilation and Botox inj 08/27, admitted with vomiting and aspiration x 2 yesterday, found to have recurrent (chronic?) aspiration pneumonitis on CXR and also acute DVT of the left femoral vein on CTAP; no evidence for bowel obstruction. Pt started on Lovenox and ABX. Previously admitted in October for aspiration pneumonia. Labs with HGB 11.6, WBC 4.9, plt 85, creatinine and e- lytes WNL, tbili 1.2, LFTs WNL. She's afebrile, HD stable. Normally bowels move regularly, soft, brown. Presently she's feeling improved; no vomiting since admission. She tolerated clears for breakfast. She tells me she is desirous to go home today as she has camping trip planned. Denies abd pain, hematemesis, melena, hematochezia, chest pain, dyspnea, dysuria; occasional cough. Last EGD 08/24/18 for n/v, with severe gastric stenosis found at the pylorus, dilated and tx with Botox inj Allergies Allergy/AdvReac Type Severity Reaction Status Date / Time Penicillins Allergy Intermediate Rash Verified 01/11/20 13:10 Sulfa (Sulfonamide AdvReac Severe Rash Verified 01/11/20 13:10 Antibiotics) Home Medications Home Medications Medication Instructions Recorded Confirmed Type omeprazole 40 mg capsule,delayed 40 mg PO BID 10/06/19 01/11/20 History release Patient History Medical History Adenocarcinoma of esophagus (02/22/18) "History of reflux esophagitis Development of weight loss and dysphagia Status post upper GI endoscopy and biopsy February 22, 2018 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 Radiation therapy completed May 12, 2018. She received 5040 cGy. Cervical polyp Esophageal cancer (Chronic) GERD (gastroesophageal reflux disease) Hyperlipidemia Hypertension Surgical History H/O left knee surgery H/O tooth extraction History of esophageal surgery (Acute) Status post hysteroscopic ablation of endometrium Family History Father Esophageal cancer Lung cancer Social History Preferred Language: Welsh Communication Ability: Effective Braille Proofreader Required: No Beliefs That Will Affect Care: None marital status: marital status details: Current Living Situation: Family current occupational status: employed Other Information That Helps Us Care for You: No Feels Safe at Home: Yes Safety Concerns: Feels Safe At This Time Smoking Status: Former smoker Tobacco Type: cigarettes ; Second Hand Exposure: No ; Hx Alcohol Use: Yes Alcohol type: wine Hx Substance Use: No Review of Systems Review of Systems: All systems reviewed & are unremarkable except as noted in HPI & below Physical Exam Constitutional: WD/WN, vitals as above no acute distress Respiratory: normal respiratory effort crackles at the bases Cardiovascular: Rate/Rhythm: regular rate and regular rhythm Gastrointestinal (Abdomen): Inspection/Auscultation: abdomen normal to inspection and normal bowel sounds; abdomen not distended Percussion/Palpation: abdomen soft; abdomen nontender Skin: no rashes, warm and dry Psychiatric: A+Ox3, euthymic affect Results & Data ([facility]) Vital Signs (Past 12 Hours) Vital Signs Temp Pulse Pulse Resp BP BP Pulse Ox 01/12/20 07:38 71 01/12/20 07:14 37.0 C 69 18 96/66 L 94 01/12/20 03:05 37.2 C 79 20 94/60 L 96 01/12/20 00:04 76 01/11/20 22:58 36.4 C L 68 20 92/56 L 90/60 L 94 01/11/20 20:43 70 Laboratory Results 01/12/20 01/11/20 01/11/20 Range/Units 05:42 17:47 17:47 WBC 4.98 (4.8-10.8) K/uL RBC 3.82 L (4.2-5.4) M/uL Hgb 11.6 L (12.0-16.0) g/dL Hct 35.9 L (37-47) % MCV 94.0 (80-100) fL MCH 30.4 (25-34) pg MCHC 32.3 (32-36) g/dL RDW Std Deviation 48.2 H (36.4-46.3) fL RDW Coeff of [place] 14.1 (11.5-14.5) % Plt Count 85 L (130-400) K/uL MPV 10.3 (7.4-10.4) fL Immature Gran % (Auto) 0.2 % Neut % (Auto) 73.5 % Lymph % (Auto) 12.9 % [place] % (Auto) 7.6 % Eos % (Auto) 5.6 % Baso % (Auto) 0.2 % Immature Gran # (Auto) 0.01 (0.00-0.02) K/uL Neut # (Auto) 3.66 (1.4-6.5) K/uL Lymph # (Auto) 0.64 L (1.2-3.4) K/uL [place] # (Auto) 0.38 (0.11-0.59) K/uL Eos # (Auto) 0.28 (0-0.5) K/uL Baso # (Auto) 0.01 (0-0.2) K/uL Platelet Estimate (Normal) RBC Morphology Ovalocytes 1+ PT (9.0-12.0) Seconds INR (0.9-1.1) APTT (21.0-31.0) Seconds PTT Ratio LA PTT Screen Pending Protein C Activity Pending Protein S Activity Pending Antithrombin III Activ Pending Factor V Leiden Mutat Pending Factor V Leiden Interp Pending Sodium (136-145) mmol/L Potassium (3.5-5.1) mmol/L Chloride (98-107) mmol/L Carbon Dioxide (21-32) mmol/L Anion Gap (3-11) BUN (7-18) mg/dl Creatinine (0.6-1.2) mg/dl Est Cr Clr Drug Dosing ml/min Est GFR ( Amer) Est GFR (Non-Af Amer) BUN/Creatinine Ratio (10-20) Glucose (70-99) mg/dl Calcium (8.5-10.1) mg/dl Total Bilirubin (0.2-1) mg/dl AST (15-37) U/L ALT (12-78) U/L Alkaline Phosphatase (45-117) U/L Total Protein (6.4-8.2) gm/dl Albumin (3.4-5.0) gm/dl Globulin (2.5-4.0) gm/dl Albumin/Globulin Ratio (0.9-2) Lipase (73-393) U/L Homocysteine Pending Urine Color Urine Appearance (Clear) Urine pH (4.5-7.5) Ur Specific [place] (1.000-1.030) Urine Protein (Negative) Urine Glucose (UA) (Negative) Urine Ketones (Negative) Urine Blood (Negative) Urine Nitrite (Negative) Urine Bilirubin (Negative) Urine Urobilinogen (Negative) Ur Leukocyte Esterase (Negative) Urine WBC (Auto) (0-5) /hpf Urine RBC (Auto) (0-4) /hpf U Hyaline Cast (Auto) (0-5) /lpf U Epithel Cells (Auto) (0-5) /lpf Urine Bacteria (Auto) (Negative) Beta-2-GPI IgG Ab Pending Beta-2-GPI IgA Ab Pending Beta-2-GPI IgM Ab Pending Anti-Cardiolipin IgG Ab Pending Anti-Cardiolipin IgA Ab Pending Anti-Cardiolipin IgM Ab Pending Prothrombin Gene Mutate Pending Prothromb Gene Comment Pending 01/11/20 01/11/20 01/11/20 Range/Units 14:25 12:51 12:50 WBC (4.8-10.8) K/uL RBC (4.2-5.4) M/uL Hgb (12.0-16.0) g/dL Hct (37-47) % MCV (80-100) fL MCH (25-34) pg MCHC (32-36) g/dL RDW Std Deviation (36.4-46.3) fL RDW Coeff of [place] (11.5-14.5) % Plt Count (130-400) K/uL MPV (7.4-10.4) fL Immature Gran % (Auto) % Neut % (Auto) % Lymph % (Auto) % [place] % (Auto) % Eos % (Auto) % Baso % (Auto) % Immature Gran # (Auto) (0.00-0.02) K/uL Neut # (Auto) (1.4-6.5) K/uL Lymph # (Auto) (1.2-3.4) K/uL [place] # (Auto) (0.11-0.59) K/uL Eos # (Auto) (0-0.5) K/uL Baso # (Auto) (0-0.2) K/uL Platelet Estimate (Normal) RBC Morphology Ovalocytes PT 11.8 (9.0-12.0) Seconds INR 1.1 (0.9-1.1) APTT 33.8 H (21.0-31.0) Seconds PTT Ratio 1.2 LA PTT Screen Protein C Activity Protein S Activity Antithrombin III Activ Factor V Leiden Mutat Factor V Leiden Interp Sodium 139 (136-145) mmol/L Potassium 3.6 (3.5-5.1) mmol/L Chloride 105 (98-107) mmol/L Carbon Dioxide 28 (21-32) mmol/L Anion Gap 6.0 (3-11) BUN 20 H (7-18) mg/dl Creatinine 0.71 (0.6-1.2) mg/dl Est Cr Clr Drug Dosing 83.0 ml/min Est GFR ( Amer) 108.1 Est GFR (Non-Af Amer) 93.2 BUN/Creatinine Ratio 28.2 H (10-20) Glucose 88 (70-99) mg/dl Calcium 9.5 (8.5-10.1) mg/dl Total Bilirubin 1.2 H (0.2-1) mg/dl AST 7 L (15-37) U/L ALT 13 (12-78) U/L Alkaline Phosphatase 81 (45-117) U/L Total Protein 7.2 (6.4-8.2) gm/dl Albumin 3.1 L (3.4-5.0) gm/dl Globulin 4.1 H (2.5-4.0) gm/dl Albumin/Globulin Ratio 0.8 L (0.9-2) Lipase 48 L (73-393) U/L Homocysteine Urine Color Yellow Urine Appearance Clear (Clear) Urine pH 5.0 (4.5-7.5) Ur Specific [place] 1.018 (1.000-1.030) Urine Protein Negative (Negative) Urine Glucose (UA) Negative (Negative) Urine Ketones Negative (Negative) Urine Blood Trace H (Negative) Urine Nitrite Negative (Negative) Urine Bilirubin Negative (Negative) Urine Urobilinogen Negative (Negative) Ur Leukocyte Esterase 1+ H (Negative) Urine WBC (Auto) 1-5 (0-5) /hpf Urine RBC (Auto) 0-4 (0-4) /hpf U Hyaline Cast (Auto) 0 (0-5) /lpf U Epithel Cells (Auto) >30 H (0-5) /lpf Urine Bacteria (Auto) Negative (Negative) Beta-2-GPI IgG Ab Beta-2-GPI IgA Ab Beta-2-GPI IgM Ab Anti-Cardiolipin IgG Ab Anti-Cardiolipin IgA Ab Anti-Cardiolipin IgM Ab Prothrombin Gene Mutate Prothromb Gene Comment 01/11/20 Range/Units 12:50 WBC 7.18 (4.8-10.8) K/uL RBC 4.32 (4.2-5.4) M/uL Hgb 12.8 (12.0-16.0) g/dL Hct 39.9 (37-47) % MCV 92.4 (80-100) fL MCH 29.6 (25-34) pg MCHC 32.1 (32-36) g/dL RDW Std Deviation 47.2 H (36.4-46.3) fL RDW Coeff of [place] 14.0 (11.5-14.5) % Plt Count 98 L (130-400) K/uL MPV 10.0 (7.4-10.4) fL Immature Gran % (Auto) 0.1 % Neut % (Auto) 79.9 % Lymph % (Auto) 11.0 % [place] % (Auto) 7.0 % Eos % (Auto) 1.9 % Baso % (Auto) 0.1 % Immature Gran # (Auto) 0.01 (0.00-0.02) K/uL Neut # (Auto) 5.73 (1.4-6.5) K/uL Lymph # (Auto) 0.79 L (1.2-3.4) K/uL [place] # (Auto) 0.50 (0.11-0.59) K/uL Eos # (Auto) 0.14 (0-0.5) K/uL Baso # (Auto) 0.01 (0-0.2) K/uL Platelet Estimate Decreased L (Normal) RBC Morphology Unremarkable Ovalocytes PT (9.0-12.0) Seconds INR (0.9-1.1) APTT (21.0-31.0) Seconds PTT Ratio LA PTT Screen Protein C Activity Protein S Activity Antithrombin III Activ Factor V Leiden Mutat Factor V Leiden Interp Sodium (136-145) mmol/L Potassium (3.5-5.1) mmol/L Chloride (98-107) mmol/L Carbon Dioxide (21-32) mmol/L Anion Gap (3-11) BUN (7-18) mg/dl Creatinine (0.6-1.2) mg/dl Est Cr Clr Drug Dosing ml/min Est GFR ( Amer) Est GFR (Non-Af Amer) BUN/Creatinine Ratio (10-20) Glucose (70-99) mg/dl Calcium (8.5-10.1) mg/dl Total Bilirubin (0.2-1) mg/dl AST (15-37) U/L ALT (12-78) U/L Alkaline Phosphatase (45-117) U/L Total Protein (6.4-8.2) gm/dl Albumin (3.4-5.0) gm/dl Globulin (2.5-4.0) gm/dl Albumin/Globulin Ratio (0.9-2) Lipase (73-393) U/L Homocysteine Urine Color Urine Appearance (Clear) Urine pH (4.5-7.5) Ur Specific [place] (1.000-1.030) Urine Protein (Negative) Urine Glucose (UA) (Negative) Urine Ketones (Negative) Urine Blood (Negative) Urine Nitrite (Negative) Urine Bilirubin (Negative) Urine Urobilinogen (Negative) Ur Leukocyte Esterase (Negative) Urine WBC (Auto) (0-5) /hpf Urine RBC (Auto) (0-4) /hpf U Hyaline Cast (Auto) (0-5) /lpf U Epithel Cells (Auto) (0-5) /lpf Urine Bacteria (Auto) (Negative) Beta-2-GPI IgG Ab Beta-2-GPI IgA Ab Beta-2-GPI IgM Ab Anti-Cardiolipin IgG Ab Anti-Cardiolipin IgA Ab Anti-Cardiolipin IgM Ab Prothrombin Gene Mutate Prothromb Gene Comment
[2020-01-12] MEDS: ENOXAPARIN 80 MG/0.8 ML SYR SQ SCH (08:58)
[2020-01-12] MEDS: PANTOprazole 40 MG TAB PO SCH (09:00)
[2020-01-12] MEDS ORDERED: HEPARIN 100 UNIT/ML 5ML FLUSH FLUSH PRN (10:20)
[2020-01-12] MEDS ORDERED: APIXABAN 5 MG TABLET PO SCH (18:00)
--- NOTE | 2020-01-12 18:11 | Hospitalist Progress Note ---
Date of Service January 12, 2020 Assessment & Plan (1) Aspiration pneumonitis: This is a 59-year-old female with PMH of esophageal cancer (s/p esophagectomy and gastric pull-up, completed chemo in 09/27), GERD and other medical problems listed below who presents with 2 episodes of vomiting yesterday and was found to have aspiration pneumonitis. -Recurrent aspiration with h/o aspiration pneumonitis -CXR with patchy airspace consolidation is seen at both lung bases, left greater than right. The appearance is typical for pneumonia/aspiration pneumonitis -Afebrile, oxygen saturation 96% on room air, no shortness of breath -Started on IV clindamycin due to multiple medication allergies. Plan to transition to PO today -Speech eval, GI eval due to history of esophagectomy with gastric pull-up -Advanced to clear liquids, aspiration precautions -Patient seen by gastroenterology, recommend EGD as outpatient (2) Acute deep vein thrombosis of femoral vein: - LE Doppler: Nearly occlusive deep venous thrombosis is seen in the common femoral vein and proximal superficial femoral vein as above Appears unprovoked. Pt endorsed palpable cord on right leg a few weeks ago as well. Checked venous Doppler of RLE - negative -Hypercoagulability panel obtained in ED -results pending -Concern for recurrent esophageal cancer, but following closely with Dr. Ambrocio of heme-onc with recent PET scan in November 2019 that was negative for malignancy -Started therapeutic SQ Lovenox 70mg Q12H -Contacted Dr. Ambrocio, recommends to switch patient to Eliquis (3) Esophageal cancer: History of esophageal cancer s/p esophagectomy and gastric pull-up, completed chemo in 09/27 -Follows with Dr. Ambrocio of medical heme onc for reactive lymph nodes in neck seen on PET scan in November 2019. Had biopsy that revealed reactive nature but non-cancerous. Has repeat neck ultrasound at the end of the month -Recent PET scan in November 2019 that was negative for malignancy (4) Thrombocytopenia: Platelets stable near baseline at 98 (5) GERD (gastroesophageal reflux disease): Continue protonix BID DVT Ppx: therapeutic dose Lovenox started Code status: FULL PCP: Dr. Sampson Dispo: Admitted to [facility]. Plan to return home. Admission and Anticipated Discharge Date Admission Date: January 11, 2020 Subjective No acute is overnight. Patient is now in bed, in no acute distress. She denies any fevers, chills, chest pain, shortness of breath, abdominal pain nausea or vomiting. She was seen by gastroenterology today, and plan was to do EGD initially as inpatient, however this procedure can be done as outpatient and will be scheduled for the patient. Currently patient is not vomiting and feels well, back to her baseline. She was diagnosed with a DVT, and started on Lovenox, discussed with Dr. Ambrocio this morning, and recommend to switch her to Eliquis. Patient is hemodynamically stable, and inquiring about going home. Discussed in detail her medical conditions and need to follow-up. Also discussed Eliquis, and also clindamycin, that she is now receiving for aspiration pneumonitis. Review of Systems Review of Systems: All systems reviewed & are unremarkable except as noted in HPI & below Constitutional: no fever and no chills Respiratory: no cough and no dyspnea Cardiovascular: no chest pain and no palpitations Gastrointestinal: no abdominal pain, no nausea and no vomiting Physical Exam Physical Exam: General Appearance: Slim female WD/WN, NAD, sitting up in bed, pleasant, conversing easily Head: normocephalic, atraumatic Eyes: normal inspection, PERRL, conjunctivae normal, anicteric sclerae ENT: external ear and nose normal, oropharynx normal Neck: trachea midline, no thyromegaly, normal visual inspection Respiratory: normal respiratory effort, mild bibasilar crackles, no wheeze or rhonchi. Normal insp/exp effort, no accessory muscle use Cardiovascular: regular rate, rhythm, no murmur, normal peripheral pulses. Vessels: no JVD or carotid bruit Chest: normal inspection of chest Abdomen/GI: normal bowel sounds, soft, nontender, nondistended Extremities/Musculoskeletal: no cyanosis or clubbing, extremities motor strength 5/5. No palpable cords, warmth or edema noted in BLE, moves extremities spontaneously Neurologic: PERRL, EOMI, accommodation nl, no face palsy, no dysarthria, CN's II-XI intact bilaterally and moves all extremities Psychiatric: A+Ox3, euthymic affect Skin: no rashes, normal color, warm/dry Results & Data Results & Data ([facility]) Vital Signs (Past 12 Hours) Vital Signs Temp Pulse Pulse Resp BP BP Pulse Ox 01/12/20 15:56 73 01/12/20 15:39 37.1 C 72 18 113/75 95 01/12/20 11:34 36.8 C 18 102/67 97 01/12/20 07:38 71 01/12/20 07:14 37.0 C 69 18 96/66 L 94 Laboratory Results 01/12/20 01/11/20 01/11/20 Range/Units 05:42 17:47 17:47 WBC 4.98 (4.8-10.8) K/uL RBC 3.82 L (4.2-5.4) M/uL Hgb 11.6 L (12.0-16.0) g/dL Hct 35.9 L (37-47) % MCV 94.0 (80-100) fL MCH 30.4 (25-34) pg MCHC 32.3 (32-36) g/dL RDW Std Deviation 48.2 H (36.4-46.3) fL RDW Coeff of [place] 14.1 (11.5-14.5) % Plt Count 85 L (130-400) K/uL MPV 10.3 (7.4-10.4) fL Immature Gran % (Auto) 0.2 % Neut % (Auto) 73.5 % Lymph % (Auto) 12.9 % Republic % (Auto) 7.6 % Eos % (Auto) 5.6 % Baso % (Auto) 0.2 % Immature Gran # (Auto) 0.01 (0.00-0.02) K/uL Neut # (Auto) 3.66 (1.4-6.5) K/uL Lymph # (Auto) 0.64 L (1.2-3.4) K/uL Republic # (Auto) 0.38 (0.11-0.59) K/uL Eos # (Auto) 0.28 (0-0.5) K/uL Baso # (Auto) 0.01 (0-0.2) K/uL Ovalocytes 1+ LA PTT Screen Pending Protein C Activity Pending Protein S Activity Pending Antithrombin III Activ Pending Factor V Leiden Mutat Pending Factor V Leiden Interp Pending Homocysteine Pending Beta-2-GPI IgG Ab Pending Beta-2-GPI IgA Ab Pending Beta-2-GPI IgM Ab Pending Anti-Cardiolipin IgG Ab Pending Anti-Cardiolipin IgA Ab Pending Anti-Cardiolipin IgM Ab Pending Prothrombin Gene Mutate Pending Prothromb Gene Comment Pending
[2020-01-16 20:19] LABS: Anti Cardiolipin Ab IgG <14 GPL; Anti Cardiolipin Ab IgM <12 MPL; Anti-Cardiolipin Ab IgA <11 APL; Anti-Thrombin III Activity 90 % activity (80-120); B2 Glycoprotein IgA <9 SAU (<=20); B2 Glycoprotein IgG <9 SGU (<=20); B2 Glycoprotein IgM 18 SMU (<=20); PTT LA Screen 43 sec (<=40); Protein S Functional(Activity) 51 % (60-140)
[2020-01-17 12:32] LABS: Lupus Hex Phase (Rflxdonotord) Positive (Negative)
--- NOTE | 2020-01-19 10:54 | Discharge Summary ---
Date of Service January 12, 2020 Admission HPI Per Admitting Provider This is a 59-year-old female with PMH of esophageal cancer (s/p esophagectomy and gastric pull-up, completed chemo in 09/27), GERD and other medical problems listed below who presents with 2 episodes of vomiting yesterday. States she had eaten too late the night before and as a result of esophageal surgical history, aspirated gastric contents with two subsequent episodes of vomiting. This happened a few months ago in October and patient was admitted for treatment of aspiration pneumonitis. Denies any fever or chills. No lightheadedness, headache, shortness of breath, hemoptysis, wheezing, dysuria, diarrhea or constipation. Of note, on initial CT abdomen pelvis, was found to have evidence of a left femoral vein DVT. Follow-up venous Doppler of left lower extremity revealed nearly occlusive DVT in common femoral vein. Patient denies recent travel in airplane or extended trip in car. No recent surgical procedures and is not on hormone replacement. Has been following with Dr. Ambrocio of medical heme onc for reactive lymph nodes in neck seen on PET scan in November 2019. Had biopsy that revealed reactive nature but non-cancerous. Has repeat neck ultrasound at the end of the month. Admission Exam Per Admitting Provider General Appearance: WD/WN, vitals as above, NAD, sitting up in bed, pleasant, conversing easily Head: normocephalic, atraumatic Eyes: normal inspection, PERRL, conjunctivae normal, anicteric sclerae ENT: external ear and nose normal, oropharynx normal Neck: trachea midline, no thyromegaly, normal visual inspection Respiratory: normal respiratory effort, bibasilar crackles, no wheeze or rhonchi. Normal insp/exp effort, no accessory muscle use Cardiovascular: regular rate, rhythm, no murmur, normal peripheral pulses. Vessels: no JVD or carotid bruit Chest: normal inspection of chest Abdomen/GI: normal bowel sounds, soft, nontender, no hepatosplenomegaly Extremities/Musculoskeletal: no cyanosis or clubbing, extremities motor strength 5/5. No palpable cords, warmth or edema noted in BLE Neurologic: PERRL, EOMI, accommodation nl, no face palsy, no dysarthria, CN's II-XI intact bilaterally and moves all extremities Psychiatric: A+Ox3, euthymic affect Skin: no rashes, normal color, warm/dry Principal Diagnosis Aspiration pneumonitis DVT Left Lower Extremity Discharge Exam General Appearance: Slim female WD/WN, NAD, sitting up in bed, pleasant, conversing easily Head: normocephalic, atraumatic Eyes: normal inspection, PERRL, conjunctivae normal, anicteric sclerae ENT: external ear and nose normal, oropharynx normal Neck: trachea midline, no thyromegaly, normal visual inspection Respiratory: normal respiratory effort, mild bibasilar crackles, no wheeze or rhonchi. Normal insp/exp effort, no accessory muscle use Cardiovascular: regular rate, rhythm, no murmur, normal peripheral pulses. Vessels: no JVD or carotid bruit Chest: normal inspection of chest Abdomen/GI: normal bowel sounds, soft, nontender, nondistended Extremities/Musculoskeletal: no cyanosis or clubbing, extremities motor strength 5/5. No palpable cords, warmth or edema noted in BLE, moves extremities spontaneously Neurologic: PERRL, EOMI, accommodation nl, no face palsy, no dysarthria, CN's II-XI intact bilaterally and moves all extremities Psychiatric: A+Ox3, euthymic affect Skin: no rashes, normal color, warm/dry Discharge Data Allergies Allergy/AdvReac Type Severity Reaction Status Date / Time Penicillins Allergy Intermediate Rash Verified 01/17/20 08:06 Sulfa (Sulfonamide AdvReac Severe Rash Verified 01/17/20 08:06 Antibiotics) Consultations 01/11/20 16:38 ED Decision to Admit Stat 01/12/20 08:00 Consult Gastroenterology Routine Procedures Performed Operation Date: 01/12/20 12:05 <No data on this case meets the specified criteria> Ordered Studies 01/11/20 13:25 CT abd pelvis IV con only Stat IMPRESSION: 1. Postsurgical changes of esophagectomy and gastric pull-up 2. Persistent right middle lobe and left lower lobe airspace opacities suspicious for a chronic pneumonitis 3. No evidence of bowel obstruction. No evidence of free air 4. Normal appendix 5. Colonic diverticulosis. No evidence of acute diverticulitis 6. Left femoral vein filling defect suspicious for a DVT. Ultrasound correlation is recommended as deemed clinically appropriate. 01/11/20 14:48 US venous doppler LE LT Stat IMPRESSION: Nearly occlusive deep venous thrombosis is seen in the common femoral vein and proximal superficial femoral vein as above. 01/11/20 17:16 US venous doppler LE RT Urgent Hospital Course (1) Aspiration pneumonitis: This is a 59-year-old female with PMH of esophageal cancer (s/p esophagectomy and gastric pull-up, completed chemo in 09/27), GERD and other medical problems listed below who presents with 2 episodes of vomiting yesterday and was found to have aspiration pneumonitis. -Recurrent aspiration with h/o aspiration pneumonitis -CXR with patchy airspace consolidation is seen at both lung bases, left greater than right. The appearance is typical for pneumonia/aspiration pneumonitis -Afebrile, oxygen saturation 96% on room air, no shortness of breath -Started on IV clindamycin due to multiple medication allergies. Plan to transition to PO today -Speech eval, GI eval due to history of esophagectomy with gastric pull-up -Advanced to clear liquids, aspiration precautions -Patient seen by gastroenterology, recommend EGD as outpatient (2) Acute deep vein thrombosis of femoral vein: - LE Doppler: Nearly occlusive deep venous thrombosis is seen in the common femoral vein and proximal superficial femoral vein as above Appears unprovoked. Pt endorsed palpable cord on right leg a few weeks ago as well. Checked venous Doppler of RLE - negative -Hypercoagulability panel obtained in ED -results pending -Concern for recurrent esophageal cancer, but following closely with Dr. Ambrocio of heme-onc with recent PET scan in November 2019 that was negative for malignancy -Started therapeutic SQ Lovenox 70mg Q12H -Contacted Dr. Ambrocio, recommends to switch patient to Eliquis (3) Esophageal cancer: History of esophageal cancer s/p esophagectomy and gastric pull-up, completed chemo in 09/27 -Follows with Dr. Ambrocio of medical heme onc for reactive lymph nodes in neck seen on PET scan in November 2019. Had biopsy that revealed reactive nature but non-cancerous. Has repeat neck ultrasound at the end of the month -Recent PET scan in November 2019 that was negative for malignancy (4) Thrombocytopenia: Platelets stable near baseline at 98 (5) GERD (gastroesophageal reflux disease): Continue protonix BID PCP: Dr. Sampson Dispo: Admitted to [facility]. Plan to return home. Total Time Total Time Spent Total Time Spent (In Minutes): 40 Total Time Includes: Examination of the Patient, Discharge Planning, Medication Reconciliation and Communication With Other Providers Discharge Plan Discharge Items Patient Disposition: Home - Self-Care Reason For Visit: ASPIRATION PNEUMONITIS,UNPROVOKED DVT LLE Discharge Diagnosis: Aspiration pneumonitis DVT Left Lower Extremity Activity: Per Instructions section Non-emergency contact: Primary Care Provider and Conductor/Engineer Call non-emergency contact if: you have any medication questions and your symptoms worsen Follow-up/Referrals: Josiah Sampson MD [Primary Care Provider] - 01/15/20 10:40 am (01/15/2020 10:40 AM Provider Josiah Sampson MD [facility] ) Diet: Low Fat Addtl Attending Provider Instructions: You will need to follow-up with gastroenterology, for EGD. You will be contacted about the appointment. As discussed with management instructor, make sure to only eat small and more frequent meals and make sure to continue practice aspiration precautions. In the meantime, take antibiotic, clindamycin as prescribed, for next 5 days. Take the first dose later this evening, before bed. You were diagnosed with DVT, deep venous thrombosis, and started on anticoagulation(blood thinner) Eliquis. The first dose was given to you prior to your hospital discharge. Take the next dose tomorrow morning. You will need to take 2 tablets, 10 mg of Eliquis twice a day for next 7 days. Then take 1 tablet, 5 mg of Eliquis twice a day. Discuss with your primary care doctor or with Dr. Ambrocio duration of your treatment with Eliquis. Given your new diagnosis of DVT, you are in the risk of pulmonary embolism, therefore make sure to present to the hospital in case you develop a sudden shortness of breath or any other concerning symptoms such as chest pain, dizziness or lightheadedness. Follow-up with your primary care doctor within 1 week. The appointment is scheduled for you for January 14. Pending Studies at Discharge: Yes Studies:: Hypercoagulable work-up Stand-Alone Forms: [employer], Smoking Cessation Medications and DC Order Prescriptions: New Eliquis 5 mg Tablet 10 mg PO BID Qty: 60 RF: 0 Continued omeprazole 40 mg capsule,delayed release(DR/EC) 40 mg PO BID RF: 0 No Action clindamycin HCl 300 mg Capsule 300 mg PO Q6H RF: 0 citalopram [Celexa] 20 mg Tablet 20 mg PO QAM RF: 0 biotin 10 mg Tablet 5,000 mcg/kg PO QAM RF: 0 clobetasol 0.05 % Solution 1 applic TOPICAL HS RF: 0 Discharge Orders: Discharge Order (Routine); Ordered 01/12/20 Ordered By: Dudley Franklin Admission Data Admit Date/Time: 01/11/20 17:12 Attending Provider: Dudley Franklin Admit Provider: Yosvany Judd Primary Care Provider: Josiah Sampson Other Providers: Yosvany Judd ; Merlene Olguin ; Dang Peguero ; David Slater ; Elza Johnson ; Klaus Phillips ; Mateusz Luna ; Jackie Dennis ; Donna Sanchez ; Alexandre Romero ; Craig Palacios ; Rianna Pisano ; Ca Keys ; Peace Cast ; Lisa Vivar ; Maged Herrera Other Interventions: Discharge Summary Assessment (RN) Last Done: 01/12/20 18:13 DC Date/Time DO NOT enter until pt leaves facility: 01/12/20 18:26
== END 2020-01-12 18:26 | disposition home or self-care (01) | DRG 178 ==
LOC: ED 11:56 → 2N 17:12 → SUATTDRO 17:12 → 2N 18:09

== ENCOUNTER 2020-07-15 05:18 | Observation (INO) ==
--- NOTE | 2020-01-21 21:14 | PAT Medication Instructions ---
Medication Instructions Date of Service January 21, 2020 Home Medications Medication Instructions Recorded apixaban [Eliquis] 10 mg PO BID #60 tab 01/12/20 omeprazole 40 mg capsule,delayed release 40 mg PO BID apixaban [Eliquis] 10 mg PO BID biotin 5,000 mcg/kg PO QAM citalopram [Celexa] 20 mg PO QAM clindamycin HCl 300 mg PO Q6H clobetasol 1 applic TOPICAL HS Continue as directed clindamycin HCl 300 mg PO Q6H ASK your prescriber and surgeon apixaban [Eliquis] 10 mg PO BID (in order for spinal anesthesia, apixaban/Eliquis needs to be stopped 3 days (72 hours) before surgery. Please check if okay with doctor that prescribes this to you) STOP taking 24 hours before surgery clobetasol 1 applic TOPICAL HS DO NOT take the morning of surgery biotin 5,000 mcg/kg PO QAM Take morning of surgery With a small sip of water, OTHERWISE NOTHING TO EAT OR DRINK AFTER MIDNIGHT: omeprazole 40 mg capsule,delayed release 40 mg PO BID citalopram [Celexa] 20 mg PO QAM Take evening before surgery omeprazole 40 mg capsule,delayed release 40 mg PO BID Other Notes If you have any questions please call us at [phone] or [phone] or [phone] or [phone]
--- NOTE | 2020-06-18 13:09 | PAT Medication Instructions ---
Medication Instructions Date of Service June 18, 2020 Home Medications omeprazole 40 mg capsule,delayed release 40 mg PO BID biotin 10 mg PO QAM citalopram [Celexa] 40 mg PO QAM clobetasol 1 applic TOPICAL HS apixaban [Eliquis] 5 mg PO BID ASK your prescriber and surgeon apixaban [Eliquis] 5 mg PO BID (in order for spinal anesthesia, Apixaban/Eliquis needs to be stopped 72 hours/3 days before surgery. Please check if okay with doctor that prescribes this to you) STOP taking 24 hours before surgery clobetasol 1 applic TOPICAL HS DO NOT take the morning of surgery biotin 10 mg PO QAM Take morning of surgery With a small sip of water, OTHERWISE NOTHING TO EAT OR DRINK AFTER MIDNIGHT: omeprazole 40 mg capsule,delayed release 40 mg PO BID citalopram [Celexa] 40 mg PO QAM Other Notes If you have any questions please call us at [phone] or [phone] or [phone] or [phone]
--- NOTE | 2020-06-19 11:45 | Anesthesiology Consultation ---
Date of Service June 19, 2020 Assessment & Plan (1) Encounter for pre-operative examination: - Per assessment on 06/19: Travel screen negative. No known COVID-19 positive contacts or current COVID-19 related symptoms. Surgeon arranging preop COVID testing. Awaiting results. - Oncology: 06/06/20: In regards to upcoming left hip replacement- "There are no contraindications for patient. The patient does not need to have a filter placed as a precaution. Patient will need to stop apixaban (Eliquis) 3 days prior to surgery and can resume 1 day after surgery." Patient aware that in order for spinal anesthesia, Eliquis will need to be stopped 72 hours prior to surgery* - Possible difficult intubation: s/p esophagectomy and gastric pull-up, completed chemo (completed 2018) + XRT (completed 2017) - Positioning concerns: patient reports significant acid reflux/hx aspiration PNA related to having hx of esophagectomy/gastric pull-up, follows GI dietary recommendations/timing Chart Review Chart Review: Acceptable Risk for Surgery (pending surgeon-ordered PCP clearance) and Patient seen in Pre Admission Testing Teaching & Discussion Pre-Anesthesia Teaching/Discussion Notes: Instructed NPO after midnight before surgery,except medications with 15 cc of water. Medication instructions provided according to the PAT guidelines. History Surgery Operation Date: 02/19/20 07:00 Proposed Procedures p Left Anterior Total Hip Arthroplasty - Sean Wei DO Operation Date: 07/15/20 10:15 Proposed Procedures p Left Total Hip Arthroplasty - Sean Wei DO Height/Weight Height: 5 ft 5.5 in Weight: 71.6 kg Allergies Allergy/AdvReac Type Severity Reaction Status Date / Time Penicillins Allergy Intermediate Rash Verified 06/11/20 08:57 Sulfa (Sulfonamide AdvReac Severe Rash Verified 06/11/20 08:57 Antibiotics) Medications Home Medications Medication Instructions Recorded Confirmed Last Taken omeprazole 40 mg capsule,delayed 40 mg PO BID 10/06/19 06/11/20 01/11/20 release biotin 10 mg PO QAM 01/17/20 06/11/20 Unknown citalopram [Celexa] 40 mg PO QAM 01/17/20 06/11/20 Unknown clobetasol 1 applic TOPICAL HS 01/17/20 06/11/20 Unknown apixaban [Eliquis] 5 mg PO BID 06/11/20 06/11/20 Unknown Past Medical History Medical History Adenocarcinoma of esophagus (02/22/18) Moderately differentiated adenocarcinoma of the esophagus, s/p esophagectomy and gastric pull-up, completed chemo (2017, 2018) + XRT (completed 2017) Anemia hx blood transfusions (2019) in setting of GIB/recent chemo Cervical polyp Chronic back pain Depression GERD (gastroesophageal reflux disease) occasional Gout hx History of blood clots Nearly occlusive LLE DVT seen in the common femoral vein and proximal superficial femoral vein during 01/2020 [facility] admission/oncologist concern for esophageal cancer recurrence (oncology monitoring), started on Eliquis Hyperlipidemia no meds Hypertension no meds Osteoarthritis Pneumonia admitted [facility] 01/11/20- for aspiration PNA Thrombocytopenia chronic Exercise / Class Metabolic Activity II 4-5 Yardwork/Stairs/Walk up hill Past Family History Family History Father Esophageal cancer Lung cancer Brother Family history of diabetes mellitus Brother Family history of diabetes mellitus Past Surgical History Surgical History H/O left knee surgery H/O tooth extraction History of colonoscopy History of esophageal surgery esophagectomy and gastric pull-up History of esophagogastroduodenoscopy (EGD) Past Anesthesia History No Hx of Anesthesia Complications and No Family Hx of Anesthesia Complications History of PONV No Hx of PONV and No Hx of Motion Sickness Social History Smoking Status: Former smoker tobacco type: cigarettes Do You Dip or Chew Tobacco: No Smoking End Date: Quit 2012 Hx Alcohol Use: Yes Alcohol type: beer and wine alcohol intake frequency: holidays/special occasions only Alcohol Intake Frequency Comment: rare Hx Substance Use: No Review of Systems Rare, cough since esophagectomy/gastric pull-up (2017)- no recent issues. Patient denies chest pain, shortness of breath, dyspnea on exertion, fever, chills, wheezing, palpitations. Physical Exam Vital Signs VITALS BP 115/76 P 69 TEMP 98.3 SP02 97%RA RESP 16 PHYSICAL Full neck and c-spine range of motion. Full TMJ range of motion. TMD 2.5 finger breaths (small chin) Mallampati Score 2 Dentition: upper/lower dentures Lungs: clear throughout to auscultation Cardiac: regular rate and rhythm, no murmurs noted Spine: normal Carotid arteries: negative bruit Extremities: no edema Testing Laboratory Results 06/19/20 12:11 06/19/20 12:11 PT 10.9 Seconds (9.0-12.0) 06/19/20 12:11 INR 1.0 (0.9-1.1) 06/19/20 12:11 APTT 28.5 Seconds (21.0-31.0) 06/19/20 12:11 Hemoglobin A1c 5.0 % (4.5-5.6) 06/19/20 12:11 Urine Color Yellow 06/19/20 Unknown Urine Appearance Clear (Clear) 06/19/20 Unknown Urine pH 7.0 (4.5-7.5) 06/19/20 Unknown Ur Specific [place] 1.011 (1.000-1.030) 06/19/20 Unknown Urine Protein Negative (Negative) 06/19/20 Unknown Urine Glucose (UA) Negative (Negative) 06/19/20 Unknown Urine Ketones Negative (Negative) 06/19/20 Unknown Urine Nitrite Negative (Negative) 06/19/20 Unknown Ur Leukocyte Esterase Trace (Negative) H 06/19/20 Unknown Urine WBC (Auto) 1-5 /hpf (0-5) 06/19/20 Unknown Urine RBC (Auto) 0-4 /hpf (0-4) 06/19/20 Unknown U Hyaline Cast (Auto) 0 /lpf (0-5) 06/19/20 Unknown U Epithel Cells (Auto) >30 /lpf (0-5) H 06/19/20 Unknown Urine Bacteria (Auto) Negative (Negative) 06/19/20 Unknown Blood Type O Negative 06/19/20 12:11 Antibody Screen NEGATIVE 06/19/20 12:11 Patient follows closely with [facility] oncology. Will forward preop labs including CBC to oncology for continuity of care* Electrocardiogram Date: 01/11/20 Findings: + NSR @ (81) Other Testing PET CT Skull base to mid thigh: 04/29/20: Chest- Resolution of the hypermetabolic linear and nodular opacities in the left lung, which were likely infectious in etiology. No metabolically active pulmonary nodules. No metabolically active axillary, hilar, or mediastinal lymphadenopathy.No new suspicious FDG avid lesion or lymphadenopathy in the chest, abdomen or pelvis. Decreased but persistent FDG activity within a left level IIa cervical lymph node. This remains indeterminate for metastatic disease. Focus of increased uptake in the distal phalanx of the left 3rd finger. This could be posttraumatic, arthritic, or inflammatory/infectious.
[2020-06-19 13:23] LABS: Basophils # (auto) 0.01 K/uL (0-0.2); Basophils % (auto) 0.2 %; Eosinophils # (auto) 0.33 K/uL (0-0.5); Eosinophils % (auto) 8.2 %; Hematocrit (blood only) 39.7 % (37-47); Hemoglobin 12.6 g/dL (12.0-16.0); Lymphocytes # (auto) 1.18 K/uL (1.2-3.4); Lymphocytes % (auto) 29.4 %; Mean Corpuscular Hgb Conc 31.7 g/dL (32-36); Mean Corpuscular Volume 97.8 fL (80-100); Mean Platelet Volume 10.6 fL (7.4-10.4); Monocytes # (auto) 0.26 K/uL (0.11-0.59); Monocytes % (auto) 6.5 %; Neutrophils # (auto) 2.24 K/uL (1.4-6.5); Neutrophils % (auto) 55.7 %; Platelet Count 120 K/uL (130-400); RDW Coefficient of Variation 13.3 % (11.5-14.5); RDW Standard Deviation 47.4 fL (36.4-46.3); Red Blood Count 4.06 M/uL (4.2-5.4); White Blood Count 4.02 K/uL (4.8-10.8)
[2020-06-19 13:32] LABS: Partial Thromboplastin Time 28.5 Seconds (21.0-31.0); Prothrombin Time 10.9 Seconds (9.0-12.0)
[2020-06-19 13:48] LABS: Albumin Level 3.5 gm/dl (3.4-5.0); BUN Creatinine Ratio 16.2 (10-20); Creatinine Clr Calc Pharmacy 72.3 ml/min; Est GFR (African American) 88.2; Est GFR (Non-African American) 76.1; Potassium 3.9 mmol/L (3.5-5.1)
[2020-06-19 13:53] LABS: Appearance Urine Clear (Clear); Bacteria Urine Automated Negative (Negative); Bilirubin Urine Negative (Negative); Blood Urine Negative (Negative); Cast Urine Automated 0 /lpf (0-5); Color Urine Yellow; Epithelial Cell Urine Auto >30 /lpf (0-5); Glucose Urine UA Negative (Negative); Ketones Urine Negative (Negative); Leukocyte Esterase Urine Trace (Negative); Nitrite Urine Negative (Negative); Protein Urine Negative (Negative); RBC Urine Automated 0-4 /hpf (0-4); Specific Gravity Urine 1.011 (1.000-1.030); Urobilinogen Urine Negative (Negative)
[2020-06-19 13:54] LABS: Estimated Average Glucose 97 mg/dl
--- NOTE | 2020-07-14 15:14 | History & Physical Report ---
Date of Service July 15, 2020 Assessment & Plan (1) Degenerative joint disease of left hip: I have indicated the patient for left total hip replacement. The risks, benefits and complications of surgery were explained to the patient which include but not limited to infection, acute blood loss, DVT/PE, injury to nerves, vessels, bone, soft tissue, arthrofibrosis, chronic pain, failure of the prosthesis, hip dislocation, leg length discrepancy, need for additional surgery, cardiac and pulmonary events and . The patient wished to proceed with surgery and informed consent was obtained at this time. We will plan for Eliquis post-operatively for DVT prophylaxis. Upon discharge the patient will be discharged home with home health services. Appropriate clearances by PCP, Heme/Onc, CT surgery were obtained. Patient is asymptomatic for UTI. History of Present Illness Chief Complaint: Left hip pain/DJD Primary Care Provider: Josiah Sampson MD The patient is a 59 year old female who presents with complaints of severe left hip pain and DJD. The patient has failed outpatient conservative treatments to this point which included NSAIDs, IA corticosteroid injection, PT and a home exercise/walking program. The patient's pain and limited function have progressed to the point where they severely hinder their activities of daily living and they no longer tolerate exercise programs. They are requesting to proceed with total hip replacement surgery. Allergies Allergy/AdvReac Type Severity Reaction Status Date / Time Penicillins Allergy Intermediate Rash Verified 07/15/20 05:37 Sulfa (Sulfonamide AdvReac Severe Rash Verified 07/15/20 05:37 Antibiotics) Home Medications Medication Instructions Recorded Confirmed Type omeprazole 40 mg capsule,delayed 40 mg PO BID 10/06/19 07/15/20 History release biotin 10 mg PO QAM 01/17/20 07/15/20 History citalopram [Celexa] 40 mg PO QAM 01/17/20 07/15/20 History clobetasol 1 applic TOPICAL HS 01/17/20 07/15/20 History apixaban [Eliquis] 5 mg PO BID 06/11/20 07/15/20 History bupropion HCl [Wellbutrin] 100 mg PO DAILY 07/15/20 07/15/20 History Past Med/Surg History Medical History Adenocarcinoma of esophagus (02/22/18) Moderately differentiated adenocarcinoma of the esophagus, s/p esophagectomy and gastric pull-up, completed chemo (2018, 2019) + XRT (completed 2018) Anemia hx blood transfusions (2019) in setting of GIB/recent chemo Cervical polyp Chronic back pain Depression GERD (gastroesophageal reflux disease) occasional Gout hx History of blood clots Nearly occlusive LLE DVT seen in the common femoral vein and proximal superficial femoral vein during 01/2020 [facility] admission/oncologist concern for esophageal cancer recurrence (oncology monitoring), started on Eliquis Hyperlipidemia no meds Hypertension no meds Osteoarthritis Pneumonia admitted [facility] 01/11/20- for aspiration PNA Thrombocytopenia chronic Surgical History H/O left knee surgery H/O tooth extraction History of colonoscopy History of esophageal surgery esophagectomy and gastric pull-up History of esophagogastroduodenoscopy (EGD) Family History Father Esophageal cancer Lung cancer Brother Family history of diabetes mellitus Brother Family history of diabetes mellitus Social History Smoking Status: Former smoker Smoking End Date: Quit 2012; Second Hand Exposure: Yes (PARENTS SMOKED); Do You Dip or Chew Tobacco: No; Hx Alcohol Use: Yes Alcohol type: beer and wine Hx Substance Use: No Preferred Language: [place] Communication Ability: Effective Infant Nanny Required: No Beliefs That Will Affect Care: None marital status: marital status details: Current Living Situation: Family Current Living Situation Comment: SON LIVES WITH PT current occupational status: employed Other Information That Helps Us Care for You: No Feels Safe at Home: Yes Safety Concerns: Feels Safe At This Time Assistive Devices: Denture - Upper and Denture - Lower Review of Systems Review of Systems: All systems reviewed & are unremarkable except as noted in HPI & below Constitutional: as per Subjective / HPI Physical Exam Physical Exam: LLE NVSI +EHL/FHL/TA/GS SILT grossly, +2 DP pulse, compartments soft NT, limited painful ROM of the hip, antalgic gait. Constitutional: WD/WN, vitals as above Eyes: PERRL, conjunctivae normal, anicteric sclerae ENMT: external ear and nose normal, oropharynx normal Neck: trachea midline, no thyromegaly Respiratory: normal respiratory effort, lungs clear to auscultation Cardiovascular: RRR, no murmur, no edema Gastrointestinal (Abdomen): normal bowel sounds, soft, nontender, no hepatosplenomegaly Musculoskeletal: no cyanosis or clubbing, extremities motor strength 5/5 Skin: no rashes, warm and dry Neurologic: patellar DTR's 2+ bilat, sensation intact Psychiatric: A+Ox3, euthymic affect Lymphatic: no cervical or axillary lymphadenopathy Results & Data Results & Data ([facility]) Diagnostic Findings Multiple views of the hip demonstrates severe DJD with complete loss of the joint space. +osteophytes, +sclerosis, +subchondral cysts. Pre Admission Testing Addendum Laboratory Results 06/19/20 12:11 06/19/20 12:11 PT 10.9 Seconds (9.0-12.0) 06/19/20 12:11 INR 1.0 (0.9-1.1) 06/19/20 12:11 APTT 28.5 Seconds (21.0-31.0) 06/19/20 12:11 Hemoglobin A1c 5.0 % (4.5-5.6) 06/19/20 12:11 Urine Color Yellow 06/19/20 Unknown Urine Appearance Clear (Clear) 06/19/20 Unknown Urine pH 7.0 (4.5-7.5) 06/19/20 Unknown Ur Specific [place] 1.011 (1.000-1.030) 06/19/20 Unknown Urine Protein Negative (Negative) 06/19/20 Unknown Urine Glucose (UA) Negative (Negative) 06/19/20 Unknown Urine Ketones Negative (Negative) 06/19/20 Unknown Urine Nitrite Negative (Negative) 06/19/20 Unknown Ur Leukocyte Esterase Trace (Negative) H 06/19/20 Unknown Urine WBC (Auto) 1-5 /hpf (0-5) 06/19/20 Unknown Urine RBC (Auto) 0-4 /hpf (0-4) 06/19/20 Unknown U Hyaline Cast (Auto) 0 /lpf (0-5) 06/19/20 Unknown U Epithel Cells (Auto) >30 /lpf (0-5) H 06/19/20 Unknown Urine Bacteria (Auto) Negative (Negative) 06/19/20 Unknown Blood Type O Negative 06/19/20 12:11 Antibody Screen NEGATIVE 06/19/20 12:11 06/19/20 Unknown Urine Culture - Final Urine,Clean Catch Gardnerella-like bacilli
[2020-07-15] MEDS ORDERED: GABAPENTIN 600 MG DOSE PO SCH (06:00)
[2020-07-15] MEDS ORDERED: CLINDAMYCIN 600 MG/54 ML BAG IV SCH (06:00)
[2020-07-15] MEDS ORDERED: dexAMETHasone 4 MG TAB PO SCH (06:00)
[2020-07-15] MEDS ORDERED: LR 500ML BOLUS, THEN 15ML/HR IV SCH (06:00)
[2020-07-15] MEDS ORDERED: FAMOTIDINE 20 MG TAB PO SCH (06:00)
[2020-07-15] MEDS ORDERED: ACETAMINOPHEN 500 MG TAB PO SCH (06:00)
[2020-07-15] MEDS ORDERED: METOCLOPRAMIDE HCL 10 MG TABLET PO SCH (06:00)
[2020-07-15] MEDS ORDERED: ROPIVACAINE 0.5% HCL/PF 150 MG, BUPIVACAINE 0.5% MPF 30 ML, EPINEPHrine 30MG/30ML (OR U... INSTIL SCH (06:00)
[2020-07-15] MEDS ORDERED: BUPIVACAINE 0.5 % 5 MG/1 ML PF 10ML VIAL ONE (06:32)
[2020-07-15] MEDS ORDERED: BACITRACIN INJ 50,000 UNIT VIAL ONE (06:43)
--- NOTE | 2020-07-15 06:49 | History & Physical Bridge Note ---
Date of Service July 15, 2020 History & Physical Bridge Note I have examined the patient, reviewed the History & Physical and in the interval since the performance of the History & Physical I have noted the following changes of clinical significance: no changes noted
[2020-07-15] MEDS ORDERED: MIDAZOLAM HCL 1 MG/ML 2ML VIAL ONE ×2 (06:54→07:45)
[2020-07-15] MEDS ORDERED: PROPOFOL IV EMULSION 10 MG/ML 20 ML VIAL IV ONE (06:57)
[2020-07-15] MEDS ORDERED: ROCURONIUM BROMIDE 10 MG/ML 5 ML VIAL IV ONE (06:57)
[2020-07-15] MEDS ORDERED: ONDANSETRON INJ 2 MG/ML 2 ML VIAL ONE (06:57)
[2020-07-15] MEDS ORDERED: DEXAMETHASONE SOD INJ 4 MG/ML VIAL ONE (06:57)
[2020-07-15] MEDS ORDERED: LIDOCAINE 2% 20 MG/ML 5 ML SYR IV ONE (06:57)
[2020-07-15] MEDS ORDERED: HYDROmorphone INJ 2 MG/ML SYR/VIAL IV PRN (07:32)
[2020-07-15] MEDS ORDERED: ePHEDrine sulfate 50 MG/ML AMP IV PRN (07:32)
[2020-07-15] MEDS ORDERED: PROMETHAZINE HCL 12.5 MG in SODIUM CHLORIDE 0.9% 50 ML IV PRN (07:32)
[2020-07-15] MEDS ORDERED: ATROPINE SULFATE 0.1 MG/ML 10ML SYR IV PRN (07:32)
[2020-07-15] MEDS ORDERED: fentaNYL citrate 100 MCG/2 ML VIAL IV PRN (07:32)
[2020-07-15] MEDS ORDERED: ONDANSETRON INJ 2 MG/ML 2 ML VIAL IV PRN ×2 (07:32→10:22)
[2020-07-15] MEDS ORDERED: METOCLOPRAMIDE HCL INJ 5 MG/ML 2 ML VIAL IV PRN ×2 (07:32→10:22)
--- NOTE | 2020-07-15 09:06 | Post Operative Brief Note ---
Immediate Post Op Note v1 Date of Surgery July 15, 2020 Pre & Post Diagnosis Operation Date: 02/19/20 07:00 <No data on this case meets the specified criteria> Operation Date: 07/15/20 07:00 Pre-Op Diagnosis: Unilateral Primary Osteoarthritis, Left Hip Post-Op Diagnosis: Unilateral Primary Osteoarthritis, Left Hip I identified the patient and participated in the time-out.: Yes Procedure Operation Date: 02/19/20 07:00 <No data on this case meets the specified criteria> Operation Date: 07/15/20 07:00 Actual Procedures p Left Total Hip Arthroplasty Posterior(Left) - Sean Wei DO Surgeon Sean Wei DO Paper Tube Cutter Markell Lewis Estimated Blood Loss 150 Findings Consistent with Post-Op Diagnosis Fluids 500 cc LR Specimens femoral head Anesthesia Type Spinal MAC Complications none Disposition Disposition: Recovery Room Overlapping Procedure I was present for: the critical portions of procedure. I was immediately available: during the entire case. Back up surgeon: was not required during procedure.
--- NOTE | 2020-07-15 09:10 | Operative Report ---
Post Operative Report Pre & Post Diagnosis Operation Date: 02/19/20 07:00 <No data on this case meets the specified criteria> Operation Date: 07/15/20 07:00 Pre-Op Diagnosis: Unilateral Primary Osteoarthritis, Left Hip Post-Op Diagnosis: Unilateral Primary Osteoarthritis, Left Hip I identified the patient and participated in the time-out.: Yes Procedure Operation Date: 02/19/20 07:00 <No data on this case meets the specified criteria> Operation Date: 07/15/20 07:00 Actual Procedures p Left Total Hip Arthroplasty Posterior(Left) - Sean Wei DO Surgeon Sean Wei DO Linotypist Markell Lewis Estimated Blood Loss 150 Findings Consistent with Post-Op Diagnosis Fluids 500 cc LR Specimens femoral head Anesthesia Type Spinal MAC Disposition Disposition: Recovery Room Indications The patient is a 59-year-old female who presents with severe progressive left hip DJD who has failed outpatient conservative treatments. I indicated the pa tient for a total hip replacement and the risks and benefits were explained in detail which included but not limited to infection, bleeding, blood clot, damage to surrounding bone, nerves, vessels, soft tissue, hip dislocation, failure of the prosthesis, leg length discrepancy, need for additional surgery and . The patient agreed to proceed with replacement of the hip and informed consent was obtained. Appropriate clearances were obtained. Description of Procedure COMPONENTS USED: Osmar [employer] hip system: Acetabulum size 54 G7, femur size 12.5 ML taper standard extended offset, femoral head 36+3.5, liner 54 x 36, acetabular screw 35 mm x 1. Following induction of adequate spinal anesthesia, the patient was transferred to the OR table and placed in lateral decubitus position with right hip down. The left hip was prepped and draped in the typical sterile fashion. A timeout was performed, patient identified and site chato confirmed. Appropriate antibiotics were given. A standard posterolateral/Tim-Langenbeck incision was made. Subcutaneous tissue was sharply dissected. Electrocautery was utilized for hemostasis. The fascia was incised throughout the length of the wound and retracted with the Charnley retractor. The bursa was taken down and the short external rotators were identified. The piriformis was tagged with #1 Vicryl. The short external rotators and capsule were divided from the posterior aspect of the femur using electrocautery. The posterior capsule was tagged with #1 Vicryl. Both external rotators and posterior capsule were swept posterior and protected, along with protecting the sciatic nerve. The hip was dislocated by flexion and internally rotation in a controlled manner and exposure of the femoral neck was gained with an old-style Hohmann and a blunt cobra retractor. A femoral cutting guide was utilized for making the appropriate level femoral neck cut with reciprocating saw. The femoral head was removed, measured and reserved on the back table. Next, attention was turned to the acetabulum. A posterior and anterior offset retractor was placed to gain adequate exposure. Acetabular labrum as well as posterior capsule elements were removed using electrocautery and forceps. Fovea centralis was cleared of all soft tissue. Sequential reaming was performed starting at 44 mm and carried up to a 54 mm and decision was made to proceed with impaction of a 54 mm G7 Osteo-Ti cup. This was impacted and held using a single 35 mm acetabular screw. The trial acetabular liner was placed at this time. Next, attention was turned to the proximal femur where a Bovie and pickup was used to further clear short external rotators from their insertion on the femur. Box osteotome and canal finder was used to gain access to the femoral canal and the lateral reamer on power was used to further open the proximal lateral canal. Sequentially rasping was carried up to a 12.5 which gave good fit and fill of the proximal femur. A trial reduction was carried out with a standard extended offset femoral neck component a 36+0 mm femoral head. Sequential trialing of the femoral head was performed up to a 36+3.5 mm femoral head. The trial reduction was stable in all degrees of rotation with no [id number] impingement. The hip was dislocated, trial components were removed and access to the acetabulum was re-established. The trial liner was removed and the cup was irrigated to ensure all debris was removed. The final acetabular liner was inserted and properly seated in the cup. Access to the femur was once more gained and the size 12.5 femoral stem with standard extended offset was impacted into position. The hip was once more assessed with the 36+3.5 mm femoral head. Stability was accessed and found to be excellent with equal leg lengths. The hip was dislocated for the last time and the final 36+3.5 ceramic femoral head was impacted in place and the hip was reduced. Range of motion was checked once again and found to be stable. A Betadine soak was performed. After 3 minutes, the hip was once more irrigated with copious sterile saline solution with bacitracin. The renée-incisional soft tissue was injected utilizing [place] ortho mix which includes a combination of Ropivicaine 0.5% 150mg, Bupivicaine 0.5%/Epinephrine 1:200,000 30ml, Toradol 30mg, Dexamethasone 4mg, Ketamine 10mg, Clonidine 100mcg and NSS 30ml Orthomix solution. The piriformis, external rotators and capsule were repaired to the greater trochanter through bone tunnels using #5 FiberWire. The fascia was closed using #1 Vicryl, subcutaneous tissue was closed using 2-0 Vicryl, and skin was closed with ro. Sterile dressings were applied which included Silverlon. The patient tolerated the procedure well and was transported to PACU in stable condition. Due to the complex nature of the procedure, the entire surgery was performed with the operational assistance of Markell Lewis PA-C. The document control assistant, under direct supervision, was involved in the actual performance of all aspects of the surgical procedure including patient positioning, hemostasis, tissue re traction, instrument management and wound closure. I attest to the content of the Intraoperative Record and any orders documented therein. Any exceptions are noted below.
--- NOTE | 2020-07-15 09:41 | XRay Report ---
XR hip 1V LT w pelvis HISTORY: 59 years-old Female IN PACU - A/P PELVIS and LATERAL HIP left hip total joint arthroplasty COMPARISON: CT abdomen pelvis 02/10/2020 TECHNIQUE: AP view of the pelvis with crosstable lateral view of the left hip FINDINGS: Left hip total joint arthroplasty demonstrates satisfactory alignment without acute fracture or unexp ected opaque foreign body. Lateral skin ro are noted along with expected postsurgical soft tissu e swelling and deep tissue air with surgical drainage catheter. Mild right hip osteoarthritis. Arteri al calcifications. IMPRESSION: Left hip total joint arthroplasty with expected postoperative changes. ACT 112: Negative or not required by law. The above report was generated using voice recognition software. It may contain grammatical, syntax o r spelling errors. Electronically signed by: Jesus Carmen M.D. 07/15/2020 9:39 AM
[2020-07-15] MEDS ORDERED: HYDROmorphone INJ 0.5 MG/0.5 ML SYR IV PRN (10:22)
[2020-07-15] MEDS ORDERED: bisacodyL 10 MG SUPP PR PRN (10:22)
[2020-07-15] MEDS ORDERED: diphenhydrAMINE Capsule 25 MG CAP PO PRN (10:22)
[2020-07-15] MEDS ORDERED: oxyCODONE HCL IR 5 MG TAB (IMMEDIATE RELEASE) PO PRN (10:22)
[2020-07-15] MEDS ORDERED: MAGNESIUM HYDROXIDE SUSP 30 ML UDC PO PRN (10:22)
[2020-07-15] MEDS ORDERED: NALOXONE HCL 0.4 MG/1 ML VIAL/CARP IV PRN (10:22)
[2020-07-15] MEDS ORDERED: SODIUM CHLORIDE 0.9% 1000ML 1,000 ML IV SCH (12:00)
--- NOTE | 2020-07-15 12:07 | Anesthesiology Progress Note ---
Date of Service July 15, 2020 Anesthesia Post Procedure Vital Signs Vital Signs: Temp Pulse Pulse Resp BP BP Pulse Ox 07/15/20 12:00 36.5 C 62 16 92/59 L 96 07/15/20 11:00 36.4 C L 58 L 16 93/57 L 97 07/15/20 10:32 36.4 C L 57 L 15 91/59 L 97 07/15/20 10:15 36.5 C 59 L 16 95/61 L 97 07/15/20 09:55 56 L 16 102/61 96 07/15/20 09:45 36.6 C 56 L 16 99/61 L 97 07/15/20 09:35 63 17 93/61 L 97 07/15/20 09:25 57 L 17 98/65 L 96 07/15/20 09:15 60 15 93/64 L 97 07/15/20 09:08 36.4 C L 66 15 91/59 L 98 07/15/20 05:52 37.0 C 78 18 131/86 98 Transfer of Care Handoff Completed per policy Notes Mental Status: alert / awake / arousable and participated in evaluation Patient Amnestic to Procedure: Yes Nausea / Vomiting: adequately controlled Pain: adequately controlled Airway Patency, RR, SpO2: stable & adequate BP & HR: stable & adequate Hydration State: stable & adequate Neuraxial Anesthesia: was administered and sensory block is resolving Anesthetic Complications: no major complications apparent
[2020-07-15] MEDS: ACETAMINOPHEN 500 MG TAB PO SCH ×2 (13:41→21:26)
[2020-07-15] MEDS: CLINDAMYCIN 600 MG in DEXTROSE 5% 50 ML IV SCH ×2 (15:53→23:53)
[2020-07-15] MEDS ORDERED: SODIUM CHLORIDE 0.9% 1000ML 500 ML IV SCH (16:29)
[2020-07-15] MEDS ORDERED: SODIUM CHLORIDE 0.9% 1000ML 500 ML IV ONE (16:44)
[2020-07-15] MEDS: SODIUM CHLORIDE 0.9% 1000ML 1,000 ML IV SCH ×2 (18:28→23:55)
[2020-07-15 18:57] LABS: Hematocrit (blood only) 28.7 % (37-47); Hemoglobin 9.2 g/dL (12.0-16.0)
--- NOTE | 2020-07-15 20:15 | Orthopedic Progress Note ---
Date of Service July 15, 2020 Assessment & Plan (1) Degenerative joint disease of left hip: s/p L [place] POD#1 -clinda x 24 -DVT ppx: SCDs, TEDs, Eliquis -WBAT LLE -PT/OT -PO XR demonstrates well aligned well fixed total hip prothesis without fracture/dislocation -am labs as above, hgb 8.2 -DC planning home with HH Admission and Anticipated Discharge Date Admission Date: July 15, 2020 Subjective Post Operative Progress Note Patient seen sitting up in bed, comfortable, denies complaints, pain well controlled, no acute issues. Denies F/C/N/V/SOB/CP. Review of Systems Review of Systems: All systems reviewed & are unremarkable except as noted in HPI & below Constitutional: as per Subjective / HPI Physical Exam Physical Exam: LLE NVSI +EHL/FHL/TA/GS SILT grossly, +2 DP pulse, compartments soft NT, dressing cdi. Constitutional: WD/WN, vitals as above Results & Data ([facility]) Vital Signs (Past 12 Hours) Vital Signs Temp Pulse Resp BP BP Pulse Ox 07/15/20 19:29 36.5 C 70 17 78/50 L 99 07/15/20 18:25 70 85/51 L 07/15/20 17:25 36.4 C L 18 77/52 L 95 07/15/20 16:00 72 82/56 L 07/15/20 13:00 36.3 C L 64 16 86/50 L 98 07/15/20 12:00 36.5 C 62 16 92/59 L 96 07/15/20 11:00 36.4 C L 58 L 16 93/57 L 97 07/15/20 10:32 36.4 C L 57 L 15 91/59 L 97 07/15/20 10:15 36.5 C 59 L 16 95/61 L 97 07/15/20 09:55 56 L 16 102/61 96 07/15/20 09:45 36.6 C 56 L 16 99/61 L 97 07/15/20 09:35 63 17 93/61 L 97 07/15/20 09:25 57 L 17 98/65 L 96 07/15/20 09:15 60 15 93/64 L 97 07/15/20 09:08 36.4 C L 66 15 91/59 L 98 Laboratory Results 07/16/20 07/16/20 07/15/20 Range/Units 05:50 05:50 18:41 WBC 3.81 L (4.8-10.8) K/uL RBC 2.62 L (4.2-5.4) M/uL Hgb 8.2 L 9.2 L (12.0-16.0) g/dL Hct 25.3 L 28.7 L (37-47) % MCV 96.6 (80-100) fL MCH 31.3 (25-34) pg MCHC 32.4 (32-36) g/dL RDW Std Deviation 45.5 (36.4-46.3) fL RDW Coeff of [place] 13.2 (11.5-14.5) % Plt Count 92 L (130-400) K/uL MPV 10.0 (7.4-10.4) fL Immature Gran % (Auto) 0.0 % Neut % (Auto) 73.7 % Lymph % (Auto) 18.4 % [place] % (Auto) 7.6 % Eos % (Auto) 0.3 % Baso % (Auto) 0.0 % Neut # (Auto) 2.81 (1.4-6.5) K/uL Lymph # (Auto) 0.70 L (1.2-3.4) K/uL [place] # (Auto) 0.29 (0.11-0.59) K/uL Eos # (Auto) 0.01 (0-0.5) K/uL Baso # (Auto) 0.00 (0-0.2) K/uL Immature Gran # (Auto) 0.00 (0.00-0.02) K/uL Sodium 141 (136-145) mmol/L Potassium 3.8 (3.5-5.1) mmol/L Chloride 111 H (98-107) mmol/L Carbon Dioxide 27 (21-32) mmol/L Anion Gap 3.0 (3-11) BUN 22 H (7-18) mg/dl Creatinine 0.93 (0.6-1.2) mg/dl Est Cr Clr Drug Dosing 65.8 ml/min Est GFR ( Amer) 78.0 Est GFR (Non-Af Amer) 67.3 BUN/Creatinine Ratio 23.7 H (10-20) Glucose 105 H (70-99) mg/dl Calcium 8.1 L (8.5-10.1) mg/dl
[2020-07-15] MEDS: PANTOprazole 40 MG TAB PO SCH (20:26)
[2020-07-15] MEDS: DOCUSATE SODIUM 100 MG CAP PO SCH (20:26)
[2020-07-15] MEDS ORDERED: SENNA 8.6 MG TAB PO SCH (21:00)
[2020-07-16] MEDS: ACETAMINOPHEN 500 MG TAB PO SCH ×2 (05:54→14:04)
[2020-07-16 06:21] LABS: Hematocrit (blood only) 25.3 % (37-47); Hemoglobin 8.2 g/dL (12.0-16.0); Mean Corpuscular Hemoglobin 31.3 pg (25-34); Mean Corpuscular Hgb Conc 32.4 g/dL (32-36); Mean Corpuscular Volume 96.6 fL (80-100); RDW Coefficient of Variation 13.2 % (11.5-14.5); RDW Standard Deviation 45.5 fL (36.4-46.3); Red Blood Count 2.62 M/uL (4.2-5.4); White Blood Count 3.81 K/uL (4.8-10.8)
[2020-07-16 06:44] LABS: Platelet Count 92 K/uL (130-400)
[2020-07-16 06:47] LABS: BUN Creatinine Ratio 23.7 (10-20); Calcium 8.1 mg/dl (8.5-10.1); Creatinine Clr Calc Pharmacy 65.8 ml/min; Eosinophils # (auto) 0.01 K/uL (0-0.5); Eosinophils % (auto) 0.3 %; Est GFR (Non-African American) 67.3; Lymphocytes % (auto) 18.4 %; Monocytes # (auto) 0.29 K/uL (0.11-0.59); Monocytes % (auto) 7.6 %; Neutrophils # (auto) 2.81 K/uL (1.4-6.5); Neutrophils % (auto) 73.7 %; Potassium 3.8 mmol/L (3.5-5.1)
[2020-07-16] MEDS: PANTOprazole 40 MG TAB PO SCH (08:05)
[2020-07-16] MEDS: DOCUSATE SODIUM 100 MG CAP PO SCH (08:51)
[2020-07-16] MEDS ORDERED: APIXABAN 5 MG TABLET PO SCH (09:00)
[2020-07-16] MEDS ORDERED: buPROPion HCl 100 MG TABLET PO SCH (09:00)
[2020-07-16] MEDS ORDERED: CITALOPRAM 40 MG TAB PO SCH (09:00)
[2020-07-16] MEDS ORDERED: MULTIVITAMIN TAB PO SCH (09:00)
[2020-07-16] MEDS: SODIUM CHLORIDE 0.9% 1000ML 1,000 ML IV SCH (10:17)
[2020-07-16] MEDS ORDERED: HEPARIN 100 UNIT/ML 5ML FLUSH FLUSH PRN (10:45)
--- NOTE | 2020-07-16 18:26 | Discharge Summary ---
Date of Service July 16, 2020 Admission HPI Per Admitting Provider The patient is a 59 year old female who presents with complaints of severe left hip pain and DJD. The patient has failed outpatient conservative treatments to this point which included NSAIDs, IA corticosteroid injection, PT and a home exercise/walking program. The patient's pain and limited function have progressed to the point where they severely hinder their activities of daily living and they no longer tolerate exercise programs. They are requesting to proceed with total hip replacement surgery. Principal Diagnosis Left total hip replacement -Left hip DJD Discharge Exam LLE NVSI +EHL/FHL/TA/GS SILT grossly, +2 DP pulse, compartments soft NT, dressing cdi. Constitutional WD/WN, vitals as above Discharge Data Allergies Allergy/AdvReac Type Severity Reaction Status Date / Time Penicillins Allergy Intermediate Rash Verified 07/15/20 05:37 Sulfa (Sulfonamide AdvReac Severe Rash Verified 07/15/20 05:37 Antibiotics) Consultations 07/16/20 08:00 Consult Case Management - Discharge Planning Routine Procedures Performed Operation Date: 02/19/20 07:00 <No data on this case meets the specified criteria> Operation Date: 07/15/20 07:00 Actual Procedures p Left Total Hip Arthroplasty Posterior(Left) - Sean Wei DO Hospital Course (1) Degenerative joint disease of left hip: The patient is a 59 -year-old female who presents with long standing history of severe left hip DJD and failed outpatient conservative treatments. The patient's symptoms have progressed to the point where it has been difficult to perform even normal activities of daily living. I indicated the patient for a left total hip arthroplasty, the risks, benefits and complications of the procedure include but not limited to infection, bleeding, damage to bone, nerves, vessels, surrounding soft tissue, may develop blood clots, loss of function, leg length discrepancy, dislocation, failure of the components, loosening of the components, the need for additional surgery and . The patient wished to proceed with surgery at this time and informed consent was obtained. Hospital Course: On 07/15/20 the patient was taken to the operating room, adequate anesthesia administered and underwent a left anterior total hip arthroplasty. The patient tolerated the procedure well and was taken to the PACU in stable condition. Post-operatively the patient was started on a DVT ppx medication and given appropriate IV antibiotics. Consults were placed to physical therapy, occupational therapy and case management. On POD#1, the patient did well overnight and their pain was well controlled. Labs were drawn and the Hgb was 8.2. The patient progressed well with PT. Dressings were changed at this time and the incision was clean, dry and intact. The patients hospital stay was relatively uneventful and they were deemed stable by the orthopedic team and consultants to be discharged home with HH on 07/16/20. Discharge Instructions: Upon discharge the patient may weight bear as tolerates through their operative extremity. They were instructed to keep the incision clean and dry at all times. The patient may shower but should not submerge the incision, avoid bathing, pools and hot tubs. The patient was given a script for pain medication and should take as instructed. The patient's home blood thinner, Eliquis was restarted postoperatively and should take as directed. The patient was instructed to not drive or travel for long distances until cleared to do so. If the patient develops any symptoms of fevers, chills, nausea, vomiting, increased redness, swelling, pain or drainage from the surgical site, they should notify the office and/or proceed to the nearest emergency room. The patient should follow up in 10-14 days after surgery for their routine post-operative follow-up appointment and should call the office, to confirm the date and time. s/p L [place] POD#1 -clinda x 24 -DVT ppx: SCDs, TEDs, Eliquis -WBAT LLE -PT/OT -PO XR demonstrates well aligned well fixed total hip prothesis without fracture/dislocation -am labs as above, hgb 8.2 -DC planning home with Total Time Total Time Spent Total Time Spent (In Minutes): 30 Discharge Plan Discharge Items Patient Disposition: Home - Home Health Services Reason For Visit: Unilateral Primary Osteoarthritis, Left Hip Discharge Diagnosis: Left total hip replacement -Left hip DJD Condition on Discharge: Good Activity: Per Instructions section Lifting: Wait until after follow-up appointment Bathing: Keep incision dry Bathing Comment: No bathing, pools or hot tubs. Sexual Activity: Wait until after follow-up appointment Exercise/Sports: Wait until after follow-up appointment Driving/Machine Use: No driving Weightbearing: Full weightbearing Non-emergency contact: Primary Care Provider and Surgeon Call non-emergency contact if: you have any medication questions, your symptoms worsen, your pain is not controlled, your pain is worsening, your pain is unusual for you, your pain is concerning for you, you have a fever, your temperature is above 101, your wound has increased redness, your wound has increased drainage and your wound pain has increased Follow-up/Referrals: Josiah Sampson MD [Primary Care Provider] - Diet: Regular Addtl Attending Provider Instructions: ACTIVITY RECOMMENDATIONS: SELF CARE INSTRUCTIONS AFTER TOTAL HIP REPLACEMENT Until the incision and soft tissues around your hip have healed, there is a possibility that the hip prosthesis could dislocate. A. Observe the following precautions to prevent dislocation: 1. Don't bend your hip greater than 90 degrees. 2. Avoid crossing your legs or ankles while standing or lying. 3. Sit with your feet placed 6 inches apart. 4. When sitting, keep your knees below your hips. Sit on a firm surface, avoid deep, soft chairs and couches. Use an elevated toilet seat in the bathroom. 5. Don't bend over at the waist. Use a long handled shoehorn and a sock aid to help you put on your shoes and socks. A key operator can help you lease picker objects that are too high or too low to reach. 6. Keep car riding to a minimum for at least one month after surgery. B. Your balance may be shaky for a while. Use crutches or a walker until directed by your doctor. C. Use hand rails when walking on stairs. D. Wear low heeled shoes with non-slip soles. E. Be sure that your floors are free of things that could trip you - throw rugs, electrical cords, small objects. Avoid wet and waxed floors, especially with crutches and canes. F. Try to walk several times a day with rest periods between. G. Continue with all the exercises taught to you in the hospital. Again, make walking a part of your daily routine. SPECIAL CARE INSTRUCTIONS: VERY IMPORTANT TO READ AND REVIEW A. You may still be at risk for phlebitis and blood clots. 1. Wear surgical stockings (KATIE hose) for 2 weeks after surgery to improve circulation and reduce swelling. 2. Take your home medication Eliquis twice daily or as directed by your doctor. This is your blood thinner. 3. High risk patients may be prescribed a stronger blood thinner if necessary. 4. If you are on Coumadin normally, your family doctor/shoeshiner should monitor your blood work. Expect a phone call the day of or the day after bloodwork is drawn to adjust your dosage. B. You must take antibiotics before having dental work, bladder, bowel and other surgery. Your doctor will provide you with a permanent card to carry describing precautions. C. Call [facility] if you have a fever, redness or swelling around the incision, cloudy drainage from incision, or sudden increase in pain in your hip, not relieved by your regular pain medication. D. Please call the office at if you have any concerns or questions about your operation or recovery. * YOU MAY SHOWER, NO TUB BATHS UNTIL CLEARED BY YOUR DOCTOR. * WEAR KATIE HOSE 20 HOURS PER DAY FOR 2 WEEKS. * YOU SHOULD USE A WALKER OR CRUTCHES FOR 2-4 WEEKS. THIS WILL HELP PREVENT STRAIN ON YOUR HIP MUSCLE AND ALLOW IT TO HEAL PROPERLY. YOU MAY WEAN TO A CANE TOLERATED. * MOST PATIENTS WILL HAVE HOME NURSING FOR THERAPY. IF YOU DECIDE TO DO OUTPATIENT PHYSICAL THERAPY, PLEASE SCHEDULE THIS 3 TIMES PER WEEK. * YOU MAY HAVE A LARGE, BAND-RUPINDER LIKE DRESSING (SILVERON). THIS WILL REMAIN ON YOUR INCISION FOR 7 DAYS, THEN CAN BE REMOVED. IF INCISION IS LEAKING THROUGH DRESSING, PLEASE CALL THE OFFICE . FOLLOW UP VISIT: If appointment is not already scheduled: Please call [facility] to make a follow-up appointment for 2 weeks after your surgery at . Pending Studies at Discharge: No Stand-Alone Forms: My C[employer]-Prote[employer], Smoking Cessation Medications and DC Order Prescriptions: New acetaminophen 500 mg Tablet 1,000 mg PO Q8 PRN (Reason: pain/fevers) Qty: 90 RF: 0 oxycodone 5 mg Tablet 5 mg PO Q6H MDD 4 PRN (Reason: pain) Qty: 30 RF: 0 sennosides [Senokot] 8.6 mg Tablet 17.2 mg PO HS PRN (Reason: constipation) Qty: 28 RF: 0 Continued omeprazole 40 mg capsule,delayed release(DR/EC) 40 mg PO BID RF: 0 citalopram [Celexa] 20 mg Tablet 40 mg PO QAM RF: 0 biotin 10 mg Tablet 10 mg PO QAM RF: 0 clobetasol 0.05 % Solution 1 applic TOPICAL HS RF: 0 Eliquis 5 mg tablet 5 mg PO BID RF: 0 bupropion HCl 100 mg Tablet 100 mg PO DAILY RF: 0 Discharge Orders: Discharge Order (Routine); Ordered 07/16/20 Ordered By: Sean Wheat/Other Patient Handouts: Hip Precautions Admission Data Admit Date/Time: 07/15/20 09:25 Attending Provider: Sean Wei Admit Provider: Sean Wei Primary Care Provider: Josiah Sampson Other Providers: [facility],Home Health Other Interventions: Discharge Summary Assessment (RN) Last Done: 07/16/20 16:41
== END 2020-07-16 17:45 | disposition home health service (06) ==
LOC: ASU 05:18 → 3W 05:18